=== PATIENT | female | born 1950 | race Hispanic/Latino ===

== ENCOUNTER 2018-12-11 10:24 | Observation (INO) | payer OTHER ==
[2018-12-11] MEDS ORDERED: ASPIRIN 81 MG CHEWABLE TABLET ONE (10:54)
[2018-12-11 11:00] LABS: Absolute Lymphocytes (CBC) 1.9 K/uL (0.7-4.9); Absolute Monocytes 0.7 K/uL (0.1-1.3); Absolute Neutrophil 2.4 K/uL (1.8-8.0); Basophils % 0.7 % (0-1.3); Eosinophils % 3.8 % (0-4.4); Hematocrit 33.3 % (36.0-45.0); Lymphocytes % 35.8 % (15.3-44.8); MPV 8.8 fL (7.6-11.3); Monocytes % 12.7 % (3.3-12.3); RBC Red Blood Cell Count 3.71 M/uL (3.86-4.86)
[2018-12-11 11:07] LABS: Protime INR 1.07
[2018-12-11 11:20] LABS: Albumin 3.7 g/dL (3.4-5.0); Bilirubin Direct 0.1 mg/dL (0-0.2); Bilirubin Total 0.6 mg/dL (0.2-1.0); Magnesium 1.8 mg/dL (1.8-2.4); Potassium 4.4 mmol/L (3.5-5.1); Protein, Total 7.6 g/dL (6.4-8.2); Troponin (Emerg Dept Use Only) 0.06 ng/mL (0.0-0.045)
[2018-12-11] MEDS ORDERED: BENZONATATE 100 MG CAP PO ONE (12:13)
--- NOTE | 2018-12-11 12:22 | RAD REPORT ---
EXAM DESCRIPTION: RAD - Chest Pa And Lat (2 Views) - 12/11/2018 12:12 pm CLINICAL HISTORY: COUGH Chest pain. COMPARISON: Chest Single View dated 12/15/2016 FINDINGS: The lungs are clear. The heart is normal in size. No displaced fractures. IMPRESSION: No acute or concerning finding suspected.
--- NOTE | 2018-12-11 12:28 | EDPHYS ---
Physician Documentation [facility] Name: Nathalia Brady Age: 68 yrs Sex: Female : 1950 Arrival Date: 12/11/2018 Time: 10:26 Bed 18 Private MD: John Oviedo E ED Physician Connor Tracy HPI: 12/11 10:45 This 68 yrs old Female presents to ER via Ambulatory with complaints of Flu cp Symptoms. 10:45 The patient or guardian reports cough, that is intermittent, with productive sputum. cp 10:45 Onset: The symptoms/episode began/occurred this week. Associated signs and symptoms: cp Pertinent positives: sore throat, body aches. Patient also c/o intermittent left lateral neck pain that radiates to left arm. Pain started yesterday and is improved today. Patient denies chest pain. Historical: - Allergies: 10:45 Morphine; iw - Home Meds: 10:45 metformin 500 mg Oral Tb24 1 tab 2 times per day [Active]; Plavix 75 mg Oral tab 1 tab iw once daily [Active]; atorvastatin 80 mg Oral tab 1 tab once daily [Active]; metoprolol tartrate 25 mg Oral tab 1 tab 2 times per day [Active]; pantoprazole 40 mg oral TbEC 1 tab once daily [Active]; - PMHx: 10:45 Hyperlipidemia; Diabetes - NIDDM; Hypertension; iw - PSHx: 10:45 cardiac stent; iw - Immunization history:: Adult Immunizations up to date. - Social history:: Smoking status: Patient/guardian denies using tobacco. - Ebola Screening: : Patient negative for fever greater than or equal to 101.5 degrees Fahrenheit, and additional compatible Ebola Virus Disease symptoms Patient denies exposure to infectious person Patient denies travel to an Ebola-affected area in the 21 days before illness onset No symptoms or risks identified at this time. ROS: 11:00 Constitutional: Positive for body aches, Negative for fever, poor PO intake. cp 11:00 Eyes: Negative for injury, pain, redness, and discharge. cp 11:00 ENT: Positive for rhinorrhea, sore throat, Negative for drainage from ear(s), ear pain, difficulty swallowing, difficulty handling secretions. 11:00 Neck: Positive for pain at rest, of the left lateral neck, Negative for stiffness. 11:00 Cardiovascular: Negative for chest pain, edema, palpitations. 11:00 Respiratory: Positive for cough, "sounds productive", Negative for shortness of breath, wheezing. 11:00 : Negative for urinary symptoms. 11:00 MS/extremity: Positive for pain, of the left arm, Negative for injury or acute deformity, decreased range of motion, paresthesias. 11:00 Skin: Negative for rash. 11:00 Neuro: Negative for altered mental status, headache, weakness. 11:00 All other systems are negative. Exam: 11:05 Constitutional: The patient appears in no acute distress, alert, awake, cp non-diaphoretic, non-toxic, well developed, well nourished. 11:05 Head/Face: Normocephalic, atraumatic. cp 11:05 Eyes: Periorbital structures: appear normal, Conjunctiva: normal, no exudate, no injection, Sclera: no appreciated abnormality, Lids and lashes: appear normal, bilaterally. 11:05 ENT: External ear(s): are unremarkable, Ear canal(s): are normal, clear, TM's: bulging, is not appreciated, bilaterally, dullness, bilaterally, erythema, is not appreciated, bilaterally, Nose: is normal, Mouth: Lips: moist, Oral mucosa: moist, Posterior pharynx: Airway: no evidence of obstruction, patent, Tonsils: no enlargement, no exudate, erythema, that is mild, exudate, is not appreciated. 11:05 Neck: ROM/movement: is normal, is supple, no range of motions limitations, no meningismus, no nuchal rigidity. 11:05 Chest/axilla: Inspection: normal, Palpation: is normal, no crepitus, no tenderness. 11:05 Cardiovascular: Rate: normal, Rhythm: regular, Edema: is not appreciated, JVD: is not appreciated. 11:05 Respiratory: the patient does not display signs of respiratory distress, Respirations: normal, no use of accessory muscles, no retractions, no splinting, no tachypnea, labored breathing, is not present, Breath sounds: rales, are not appreciated, decreased breath sounds, are not appreciated, rhonchi, are not appreciated, + upper airway congestion. wheezing: is not appreciated. 11:05 Abdomen/GI: Inspection: abdomen appears normal, Bowel sounds: active, all quadrants, Palpation: abdomen is soft and non-tender, in all quadrants. 11:05 Back: pain, is absent, ROM is normal. 11:05 Skin: cellulitis, is not appreciated, no rash present. 11:05 Neuro: Orientation: to person, place \\T\\ time. Mentation: is normal, Cerebellar function: is grossly normal, Motor: moves all fours, strength is normal, Sensation: is normal. 11:15 ECG was reviewed by the Attending Physician. cp Vital Signs: 10:45 BP 169 / 65; Pulse 61; Resp 16 S; Temp 97.5(TE); Pulse Ox 100% on R/A; Weight 86.18 kg; iw Height 5 ft. 3 in. (160.02 cm); Pain 6/10; 12:05 BP 162 / 64; Pulse 55; Resp 18; Pulse Ox 99% on R/A; Pain 0/10; em 13:00 BP 161 / 75; Pulse 59; Resp 18; Pulse Ox 99% on R/A; em 10:45 Body Mass Index 33.66 (86.18 kg, 160.02 cm) iw MDM: 10:31 Patient medically screened. cp 11:00 Differential diagnosis: URI, bronchitis, pneumonia angina, acute PR. cp 12:24 Data reviewed: vital signs, nurses notes, lab test result(s), EKG, radiologic studies, cp plain films. Counseling: I had a detailed discussion with the patient and/or guardian regarding: the historical points, exam findings, and any diagnostic results supporting the discharge/admit diagnosis, the presence of at least one elevated blood pressure reading (>120/80) during this emergency department visit, lab results, radiology results, the need for further work-up and treatment in the hospital. Response to treatment: the patient's symptoms have markedly improved after treatment. Physician consultation: Natty Coburn MD was called at 12:20, was contacted at 12:20, regarding admission, to the telemetry unit. patient's condition. 12/11 10:38 Order name: Basic Metabolic Panel; Complete Time: 11:37 cp 12/11 11:37 Interpretation: Normal except: CL 108; GLUC 180; GFR 66. cp 12/11 10:38 Order name: CBC with Diff; Complete Time: 11:37 cp 12/11 11:37 Interpretation: Normal except: RBC 3.71; HGB 11.5; HCT 33.3; MN% 12.7. cp 12/11 10:38 Order name: LFT's; Complete Time: 11:37 cp 12/11 10:38 Order name: Magnesium; Complete Time: 11:37 cp 12/11 10:38 Order name: NT PRO-BNP; Complete Time: 11:37 cp 12/11 10:38 Order name: PT-INR; Complete Time: 11:37 cp 12/11 10:38 Order name: Troponin (emerg Dept Use Only); Complete Time: 11:37 cp 12/11 11:38 Interpretation: Abnormal: TROPED 0.06. cp 12/11 10:38 Order name: Influenza Screen (a \\T\\ B); Complete Time: 11:37 cp 12/11 10:39 Order name: Strep; Complete Time: 11:37 cp 12/11 11:27 Order name: Throat Culture EDFL 12/11 12:48 Order name: Troponin I EDFL 12/11 12:48 Order name: Troponin I EDFL 12/11 12:49 Order name: Troponin I EDFL 12/11 12:49 Order name: Troponin I EDFL 12/11 10:38 Order name: EKG; Complete Time: 10:39 cp 12/11 10:38 Order name: Cardiac monitoring; Complete Time: 10:57 cp 12/11 10:38 Order name: EKG - Nurse/Tech; Complete Time: 12:04 cp 12/11 10:38 Order name: IV Saline Lock; Complete Time: 10:57 cp 12/11 10:38 Order name: Labs collected and sent; Complete Time: 10:57 cp 12/11 10:38 Order name: O2 Per Protocol; Complete Time: 10:58 cp 12/11 10:38 Order name: O2 Sat Monitoring; Complete Time: 10:57 cp 12/11 10:38 Order name: XRAY Chest Pa And Lat (2 Views); Complete Time: 12:23 cp 12/11 12:24 Interpretation: Report reviewed. cp 12/11 12:34 Order name: Diet Heart Healthy; Complete Time: 12:34 em 12/11 12:35 Order name: Heart Healthy EDFL 12/11 12:48 Order name: CONS Physician Consult EDFL 12/11 12:48 Order name: Echo with Doppler EDFL EC:15 Rate is 54 beats/min. Rhythm is regular. CA interval is normal. QRS interval is normal. cp QT interval is normal. Interpreted by me. Reviewed by me. Administered Medications: 10:53 Drug: Aspirin Chewable Tablet 324 mg Route: PO; em 12:03 Follow up: Response: No adverse reaction em 12:03 Drug: Tessalon Perle 200 mg Route: PO; em 13:00 Follow up: Response: No adverse reaction em Disposition: 14:20 Co-signature as Attending Physician, Connor Tracy MD. rn Disposition: 12/11/18 12:27 Hospitalization ordered by Natty Coburn for Observation. Preliminary diagnosis are Hypertensive heart disease, Elevated troponin, Acute upper respiratory infection, unspecified. - Bed requested for Telemetry/MedSurg (observation). - Status is Observation. em - Condition is Stable. - Problem is new. - Symptoms have improved. UTI on Admission? No Signatures: Dispatcher [facility] Cathi Frazier RN RN mw Munoz, Edgar, SAND MIXER OPERATOR SAND MIXER OPERATOR em Noris Moralez RN RN iw Nieto, Roman, MD MD rn Page, Corey, ANASTASIIA PA Ankita Carrera Corrections: (The following items were deleted from the chart) 12:34 12:27 Hospitalization Ordered by Natty Coburn MD for Observation. Preliminary eb diagnosis is Hypertensive heart disease; Elevated troponin; Acute upper respiratory infection, unspecified. Bed requested for Telemetry/MedSurg (observation). Status is Observation. Condition is Stable. Problem is new. Symptoms have improved. UTI on Admission? No. cp 13:00 12:34 12/11/2018 12:27 Hospitalization Ordered by Natty Coburn MD for Observation. eb Preliminary diagnosis is Hypertensive heart disease; Elevated troponin; Acute upper respiratory infection, unspecified. Bed requested for Telemetry/MedSurg (observation). Status is Observation. Condition is Stable. Problem is new. Symptoms have improved. UTI on Admission? No. eb 13:09 13:00 12/11/2018 12:27 Hospitalization Ordered by Natty Coburn MD for Observation. mw Preliminary diagnosis is Hypertensive heart disease; Elevated troponin; Acute upper respiratory infection, unspecified. Bed requested for Telemetry/MedSurg (observation). Status is Observation. Condition is Stable. Problem is new. Symptoms have improved. UTI on Admission? No. eb 14:04 13:09 12/11/2018 12:27 Hospitalization Ordered by Natty Coburn MD for Observation. em Preliminary diagnosis is Hypertensive heart disease; Elevated troponin; Acute upper respiratory infection, unspecified. Bed requested for Telemetry/MedSurg (observation). Status is Observation. Condition is Stable. Problem is new. Symptoms have improved. UTI on Admission? No. mw
--- NOTE | 2018-12-11 12:28 | ER ---
Nurse's Notes [facility] Name: Nathalia Brady Age: 68 yrs Sex: Female : 1950 Arrival Date: 12/11/2018 Time: 10:26 Bed 18 Private MD: John Oviedo E Diagnosis: Hypertensive heart disease;Elevated troponin;Acute upper respiratory infection, unspecified Presentation: 12/11 10:41 Presenting complaint: Patient states: has been feeling bad all week, c/o body aches, iw productive cough, sneezing, eye irritation, pain to left side of neck that makes her left arm go numb intermittently, denies fever. Transition of care: patient was not received from another setting of care. Onset of symptoms was December 06, 2018. Risk Assessment: Do you want to hurt yourself or someone else? Patient reports no desire to harm self or others. Initial Sepsis Screen: Does the patient meet any 2 criteria? No. Patient's initial sepsis screen is negative. Does the patient have a suspected source of infection? No. Patient's initial sepsis screen is negative. Care prior to arrival: None. 10:41 Method Of Arrival: Ambulatory iw 10:41 Acuity: CALI 3 iw Historical: - Allergies: 10:45 Morphine; iw - Home Meds: 10:45 metformin 500 mg Oral Tb24 1 tab 2 times per day [Active]; Plavix 75 mg Oral tab 1 tab iw once daily [Active]; atorvastatin 80 mg Oral tab 1 tab once daily [Active]; metoprolol tartrate 25 mg Oral tab 1 tab 2 times per day [Active]; pantoprazole 40 mg oral TbEC 1 tab once daily [Active]; - PMHx: 10:45 Hyperlipidemia; Diabetes - NIDDM; Hypertension; iw - PSHx: 10:45 cardiac stent; iw - Immunization history:: Adult Immunizations up to date. - Social history:: Smoking status: Patient/guardian denies using tobacco. - Ebola Screening: : Patient negative for fever greater than or equal to 101.5 degrees Fahrenheit, and additional compatible Ebola Virus Disease symptoms Patient denies exposure to infectious person Patient denies travel to an Ebola-affected area in the 21 days before illness onset No symptoms or risks identified at this time. Screenin:00 Abuse screen: Denies threats or abuse. Nutritional screening: No deficits noted. em Tuberculosis screening: No symptoms or risk factors identified. Fall Risk None identified. Assessment: 11:00 General: Appears in no apparent distress. comfortable, Behavior is calm, cooperative, em Denies fever. Pain: Complains of pain in left sternocleidomastoid Pain radiates to left arm Pain currently is 6 out of 10 on a pain scale. Pain began 1 week. Neuro: Level of Consciousness is awake, alert, obeys commands, Oriented to person, place, time, situation, Moves all extremities. Speech is normal, Facial symmetry appears normal. Cardiovascular: Denies nausea, shortness of breath, Heart tones S1 S2 present Capillary refill < 3 seconds Patient's skin is warm and dry. Rhythm is sinus rhythm. Respiratory: Reports cough that is non-productive, pain with cough Airway is patent Respiratory effort is even, unlabored, Respiratory pattern is regular, symmetrical, Breath sounds are clear bilaterally. Denies. GI: Abdomen is flat. : No signs and/or symptoms were reported regarding the genitourinary system. EENT: Nares are clear Oral mucosa is moist. Throat is clear is pink. Derm: Skin is intact, is healthy with good turgor, Skin is pink, warm \T\ dry. Musculoskeletal: Range of motion: intact in all extremities. 12:00 Reassessment: Patient appears in no apparent distress at this time. Patient and/or em family updated on plan of care and expected duration. Pain level reassessed. Patient is alert, oriented x 3, equal unlabored respirations, skin warm/dry/pink. Patient states feeling better. Patient states symptoms have improved. 13:00 Reassessment: Patient appears in no apparent distress at this time. Patient and/or em family updated on plan of care and expected duration. Pain level reassessed. Patient is alert, oriented x 3, equal unlabored respirations, skin warm/dry/pink. pending room assignemt. Vital Signs: 10:45 BP 169 / 65; Pulse 61; Resp 16 S; Temp 97.5(TE); Pulse Ox 100% on R/A; Weight 86.18 kg; iw Height 5 ft. 3 in. (160.02 cm); Pain 6/10; 12:05 BP 162 / 64; Pulse 55; Resp 18; Pulse Ox 99% on R/A; Pain 0/10; em 13:00 BP 161 / 75; Pulse 59; Resp 18; Pulse Ox 99% on R/A; em 10:45 Body Mass Index 33.66 (86.18 kg, 160.02 cm) ED Course: 10:26 Patient arrived in ED. rg4 10:27 John Oviedo MD is Private Physician. rg4 10:31 Gavin Oreilly PA is PHCP. cp 10:31 Connor Tracy MD is Attending Physician. cp 10:39 Guanako De La Garza LVN is Primary Nurse. em 10:43 Triage completed. iw 10:45 Arm band placed on. iw 10:50 Inserted saline lock: 22 gauge in right antecubital area, using aseptic technique. tw2 Blood collected. 11:00 Patient has correct armband on for positive identification. Fall risk band placed. em Placed in gown. Bed in low position. Call light in reach. Side rails up X2. Adult w/ patient. pvc monitor on. Pulse ox on. NIBP on. 11:56 EKG done, by ED staff, reviewed by Gavin LAURENT. [facility] 12:12 XRAY Chest Pa And Lat (2 Views) In Process Unspecified. EDMS 12:25 Natty Coburn MD is Hospitalizing Provider. cp 14:01 No provider procedures requiring assistance completed. Patient admitted, IV remains in em place. Administered Medications: 10:53 Drug: Aspirin Chewable Tablet 324 mg Route: PO; em 12:03 Follow up: Response: No adverse reaction em 12:03 Drug: Tessalon Perle 200 mg Route: PO; em 13:00 Follow up: Response: No adverse reaction em Outcome: 12:27 Decision to Hospitalize by Provider. cp 14:01 Admitted to Tele accompanied by nurse, via wheelchair, room 207, with oxygen, with em chart, Report called to CLAUDETTE Zhu 14:01 Condition: good 14:01 Instructed on the need for admit, Demonstrated understanding of instructions. 14:04 Patient left the ED. em Signatures: Dispatcher [employer] EDMS Guanako De La Garza LVN LVN em Noris Moralez RN RN iw Page, Corey, PA PA Mena Ramachandran RN RN 2 Deepali Rodríguez 4 Randa Mcginnis [facility] Corrections: (The following items were deleted from the chart) 12:31 11:00 Pain: Complains of pain in left sternocleidomastoid Pain currently is 6 out of 10 em on a pain scale. Pain began 1 week em
[2018-12-11] MEDS ORDERED: D50W 25 GM/50 ML SYRINGE IV PRN (13:27)
[2018-12-11] MEDS ORDERED: GLUCAGON 1 MG/VIAL IM PRN (13:27)
[2018-12-11] MEDS ORDERED: ONDANSETRON 4 MG/2 ML VIAL IV PRN (13:34)
[2018-12-11 14:07] VITALS: BMI 32.3
[2018-12-11 14:39] LABS: Urine Appearance CLEAR; Urine Bilirubin NEGATIVE (NEG); Urine Blood NEGATIVE (NEG); Urine Color YELLOW; Urine Glucose 1+ (NEG); Urine Protein NEGATIVE (NEG); Urine Urobilinogen 0.2 mg/dL (0.2-1.0); Urine pH 5.5 (5.0-7.0)
[2018-12-11 14:45] LABS: Urine Microscopic Reflex NO UMIC
[2018-12-11] MEDS ORDERED: INFLUENZA VACCINE (for 3y+) 0.5 ML DOSE IMVAC ONE (16:00)
[2018-12-11] MEDS: INSULIN -REGULAR HUMAN 50 UNIT/0.5 ML ML SQ SCH ×2 (16:59→21:00)
--- NOTE | 2018-12-11 17:51 | P.HP ---
Certification for Inpatient Patient admitted to: Observation With expected LOS: <2 Midnights Patient will require the following post-hospital care: None Practitioner: I am a practitioner with admitting privileges, knowledge of patient current condition, hospital course, and medical plan of care. Services: Services provided to patient in accordance with Admission requirements found in Title 42 Section 412.3 of the Code of Federal Regulations Patient History Date of Service: 12/11/18 Primary Care Provider: Dr Oviedo Reason for admission: Chest palpatation History of Present Illness: This is a 68-year-old female with significant past medical history of hypertension, diabetes, CAD, who presented to the ED this morning after having chest palpitations last night. Patient stated that for over a week now she has been having some cough and congestion due to her allergies which did resolve over the weekend last week however got worse once she went outside and worked on her grasp. Patient stated that since then she has been having some cough and congestion last night she started having some chest palpitations. Patient stated that she was sleeping and started noticing her heart was beating really fast at that time which then resolved immediately after a min or 2. Patient denies having any shortness of breath, chest pain or any other associated symptoms at this time. In the ER patient had labwork imaging done an EKG done. EKG is consistent with some nonspecific changes and troponin was mildly prolonged and this patient was admitted to the hospital for observation for chest palpitations. Allergies morphine Allergy (Verified 12/11/18 15:18) Anaphylaxis Home Medications: Atorvastatin Calcium [Lipitor] 1 tab PO DAILY 12/16/16 Clopidogrel Bisulfate [Plavix] 1 tab PO DAILY 12/16/16 Metformin HCl [Metformin ER Osmotic] 2 tab PO BID 12/16/16 Metoprolol Tartrate [Lopressor*] 1 tab PO BID 12/16/16 Pantoprazole [Protonix Tab] 40 mg PO DAILY 12/11/18 - Past Medical/Surgical History Has patient received pneumonia vaccine in the past: Yes Diabetic: Yes -: DM -: HTN -: high cholesterol -: CECI -: heart stent - Family History Father -: Diabetes Mother -: Diabetes - Social History Smoking Status: Former smoker Counseled patient to stop smoking for: more than 10 minutes Smoking therapy provided: Yes Patient receptive to therapy: Yes Alcohol use: No CD- Drugs: No Caffeine use: Yes Place of Residence: Home Review of Systems 10-point ROS is otherwise unremarkable Physical Examination - Vital Signs Temperature: 97.5 F Blood Pressure: 161/75 Pulse: 59 Respirations: 18 - Physical Exam General: Alert, In no apparent distress HEENT: Atraumatic, PERRLA, Mucous membr. moist/pink, EOMI, Sclerae nonicteric Neck: Supple, 2+ carotid pulse no bruit, No LAD, Without JVD or thyroid abnormality Respiratory: Clear to auscultation bilaterally, Normal air movement Cardiovascular: Regular rate/rhythm, Normal S1 S2 Gastrointestinal: Normal bowel sounds, No tenderness Musculoskeletal: No tenderness Integumentary: No rashes Neurological: Normal gait, Normal speech, Normal strength at 5/5 x4 extr, Normal tone, Normal affect Lymphatics: No axilla or inguinal lymphadenopathy - Studies Laboratory Data (last 24 hrs) 12/11/18 10:52: PT 12.6 H, INR 1.07 12/11/18 10:52: WBC 5.2, Hgb 11.5 L, Hct 33.3 L, Plt Count 255 12/11/18 10:52: Sodium 140, Potassium 4.4, BUN 15, Creatinine 0.86, Glucose 180 H, Magnesium 1.8, Total Bilirubin 0.6, AST 14 L, ALT 17, Alkaline Phosphatase 92 Microbiology Data (last 24 hrs): 12/11/18 10:50 Nasopharnyx Influenza Type A Antigen Screen - Final 12/11/18 10:50 Nasopharnyx Influenza Type B Antigen Screen - Final 12/11/18 10:50 Throat Group A Streptococcus Rapid Screen - Final Assessment and Plan - Problems (Diagnosis) (1) Heart palpitations Current Visit: Yes Status: Acute Plan: Heart palpitations most likely secondary to viral illness -go ahead and monitor patient on cardiac tele here for next 24 hr -cardiology has been consulted. Awaiting recommendations -will get echocardiogram done as well -will repeat troponin times 2 (2) Coronary artery disease Current Visit: No Status: Chronic Plan: Stable at this time -will restart home medication Qualifiers: Coronary Disease-Associated Artery/Lesion type: [place] artery [place] vs. transplanted heart: [place] heart Associated angina: without angina Qualified Code(s): I25.10 - Atherosclerotic heart disease of [place] coronary artery without angina pectoris (3) Hypertension Current Visit: No Status: Chronic Plan: Blood pressure stable at this time will restart home medication Qualifiers: Hypertension type: essential hypertension (4) Type 2 diabetes mellitus Current Visit: No Status: Chronic Plan: Insulin sliding scale and Accu-Chek Qualifiers: Diabetes mellitus vermin exterminator insulin use: without assisted use Diabetes mellitus complication status: without complication Qualified Code(s): E11.9 - Type 2 diabetes mellitus without complications - Plan Admit patient to medical-surgical unit to monitor for chest palpitations and cardiology consult. Discharge Plan: Home Plan to discharge in: 48 Hours - Advance Directives Does patient have a Living Will: No Does patient have a Durable POA for Healthcare: No - Code Status/Comfort Care Code Status Assessed: Yes Critical Care: No
[2018-12-11] MEDS ORDERED: ENOXAPARIN 40 MG/0.4 ML SQ SCH (18:00)
[2018-12-11] MEDS ORDERED: ATORVASTATIN 40 MG TAB PO SCH (21:00)
[2018-12-11] MEDS: METOPROLOL XL 25 MG TAB PO SCH (21:45)
[2018-12-12 05:57] LABS: Absolute Lymphocytes (CBC) 2.1 K/uL (0.7-4.9); Absolute Monocytes 0.6 K/uL (0.1-1.3); Absolute Neutrophil 2.5 K/uL (1.8-8.0); Basophils % 0.7 % (0-1.3); Eosinophils % 4.2 % (0-4.4); Hematocrit 30.7 % (36.0-45.0); Lymphocytes % 38.8 % (15.3-44.8); Monocytes % 10.3 % (3.3-12.3); RBC Red Blood Cell Count 3.44 M/uL (3.86-4.86)
[2018-12-12] MEDS ORDERED: METOPROLOL XL 25 MG TAB PO SCH (06:00)
[2018-12-12 06:04] LABS: ALT/SGPT 18 U/L (12-78); AST/SGOT 12 U/L (15-37); Albumin 3.5 g/dL (3.4-5.0); Alkaline Phosphatase 83 U/L (45-117); BUN Blood Urea Nitrogen 18 mg/dL (7-18); Bicarbonate 24 mmol/L (21-32); Bilirubin Total 0.4 mg/dL (0.2-1.0); CKMB Creatine Kinase MB < 1.0 ng/mL (0.3-3.6); Glucose Level 158 mg/dL (74-106); HDL Cholesterol 34 mg/dL (40-60); LDL Cholesterol, Calculated 42 (<130); Magnesium 1.8 mg/dL (1.8-2.4); Potassium 4.2 mmol/L (3.5-5.1); Protein, Total 6.9 g/dL (6.4-8.2); Sodium Level 139 mmol/L (136-145); Troponin I 0.05 ng/mL (0.0-0.045)
[2018-12-12] MEDS: INSULIN -REGULAR HUMAN 50 UNIT/0.5 ML ML SQ SCH ×2 (07:30→11:38)
[2018-12-12] MEDS ORDERED: MAGNESIUM SULFATE 1 gm IVPB 1 GM/100 ML BAG IV ONE (08:00)
[2018-12-12] MEDS: METOPROLOL XL 25 MG TAB PO SCH (08:25)
[2018-12-12 08:34] VITALS: O2SAT 97
[2018-12-12] MEDS ORDERED: PANTOPRAZOLE 40MG TABLET PO SCH (09:00)
[2018-12-12] MEDS ORDERED: ATORVASTATIN 80 MG TAB PO SCH (09:00)
[2018-12-12] MEDS ORDERED: ASPIRIN EC 81 MG TAB PO SCH (09:00)
--- NOTE | 2018-12-12 11:02 | P.PN ---
Subjective Date of Service: 12/12/18 Primary Care Provider: Dr Oviedo Chief Complaint: Chest palpatation Patient seen and examined at bedside with RN. Chart reviewed. Case discussed with family member at bedside. Currently patient awaiting cardiology consultation. Currently complains of having chest pain which is 3/10 and radiating to her left side. Patient contacted her juice standardizer at [facility] who recommended that she should be transferred to [facility]. Family notified that this would be considered a patient requested transfer and they could have an accepting physician at [facility] startup transfer process at that time. Patient however this time opted to await cardiology consult here before making any decision Review of Systems 10-point ROS is otherwise unremarkable Physical Examination - Vital Signs Temperature: 96.6 F Blood Pressure: 133/58 Pulse: 60 Respirations: 16 Pulse Ox (%): 99 - Physical Exam General: Alert, In no apparent distress HEENT: Atraumatic, PERRLA, EOMI Neck: Supple, JVD not distended Respiratory: Clear to auscultation bilaterally, Normal air movement Cardiovascular: Regular rate/rhythm, Normal S1 S2 Gastrointestinal: Normal bowel sounds, No tenderness Musculoskeletal: No tenderness Integumentary: No rashes Neurological: Normal speech, Normal tone, Normal affect Lymphatics: No axilla or inguinal lymphadenopathy - Studies Laboratory Data (last 24 hrs) 12/11/18 10:52: PT 12.6 H, INR 1.07 12/11/18 10:52: WBC 5.2, Hgb 11.5 L, Hct 33.3 L, Plt Count 255 12/11/18 10:52: Sodium 140, Potassium 4.4, BUN 15, Creatinine 0.86, Glucose 180 H, Magnesium 1.8, Total Bilirubin 0.6, AST 14 L, ALT 17, Alkaline Phosphatase 92 Microbiology Data (last 24 hrs): 12/11/18 10:50 Nasopharnyx Influenza Type A Antigen Screen - Final 12/11/18 10:50 Nasopharnyx Influenza Type B Antigen Screen - Final 12/11/18 10:50 Throat Group A Streptococcus Rapid Screen - Final Medications List Reviewed: Yes Assessment And Plan - Current Problems (Diagnosis) (1) Heart palpitations Current Visit: Yes Status: Acute Plan: Heart palpitations most likely secondary to viral illness versus cardiac urology -patient now with chest pain. EKG with nonspecific T-wave changes. Troponin x2 slightly elevated -cardiology has been consulted. Awaiting recommendations -echocardiogram pending at this time (2) Coronary artery disease Current Visit: No Status: Chronic Plan: Stable at this time -aspirin, beta-richi, statin at this time Qualifiers: Coronary Disease-Associated Artery/Lesion type: [place]al[place] artery [place] vs. transplanted heart: nondalton heart Associated angina: without angina Qualified Code(s): I25.10 - Atherosclerotic heart disease of nondalton coronary artery without angina pectoris (3) Hypertension Current Visit: No Status: Chronic Plan: Blood pressure stable -started on home medication Qualifiers: Hypertension type: essential hypertension (4) Type 2 diabetes mellitus Current Visit: No Status: Chronic Plan: Insulin sliding scale and Accu-Chek Qualifiers: Diabetes mellitus skilled nursing insulin use: without skilled nursing use Diabetes mellitus complication status: without complication Qualified Code(s): E11.9 - Type 2 diabetes mellitus without complications - Plan Pending clinical improvement at this time. Awaiting cardiology consultation and echocardiogram. Discharge Plan: Home Plan to discharge in: Greater than 2 days - Code Status/Comfort Care Code Status Assessed: Yes Critical Care: No
--- NOTE | 2018-12-12 11:55 | P.SSS ---
Patient History Date of Service: 12/12/18 Primary Care Provider: Dr Oviedo Reason for admission: Chest palpatation History of Present Illness: This is a 68-year-old female with significant past medical history of hypertension, diabetes, CAD, who presented to the ED this morning after having chest palpitations last night. Patient stated that for over a week now she has been having some cough and congestion due to her allergies which did resolve over the weekend last week however got worse once she went outside and worked on her grasp. Patient stated that since then she has been having some cough and congestion last night she started having some chest palpitations. Patient stated that she was sleeping and started noticing her heart was beating really fast at that time which then resolved immediately after a min or 2. Patient denies having any shortness of breath, chest pain or any other associated symptoms at this time. In the ER patient had labwork imaging done an EKG done. EKG is consistent with some nonspecific changes and troponin was mildly prolonged and this patient was admitted to the hospital for observation for chest palpitations. Allergies morphine Allergy (Verified 12/11/18 15:18) Anaphylaxis Home Medications: Atorvastatin Calcium [Lipitor] 1 tab PO DAILY 12/16/16 Clopidogrel Bisulfate [Plavix] 1 tab PO DAILY 12/16/16 Metformin HCl [Metformin ER Osmotic] 2 tab PO BID 12/16/16 Metoprolol Tartrate [Lopressor*] 1 tab PO BID 12/16/16 Pantoprazole [Protonix Tab*] 40 mg PO DAILY 12/11/18 - Past Medical/Surgical History Has patient received pneumonia vaccine in the past: Yes Diabetic: Yes -: DM -: HTN -: high cholesterol -: CECI -: heart stent - Family History Father -: Diabetes Mother -: Diabetes - Social History Smoking Status: Former smoker Alcohol use: No CD- Drugs: No Caffeine use: Yes Place of Residence: Home Review of Systems 10-point ROS is otherwise unremarkable Physical Examination - Vital Signs Temperature: 96.6 F Blood Pressure: 133/58 Pulse: 60 Respirations: 16 Pulse Ox (%): 99 - Physical Exam General: Alert, In no apparent distress HEENT: Atraumatic, PERRLA, Mucous membr. moist/pink, EOMI, Sclerae nonicteric Neck: Supple, 2+ carotid pulse no bruit, No LAD, Without JVD or thyroid abnormality Respiratory: Clear to auscultation bilaterally, Normal air movement Cardiovascular: Regular rate/rhythm, Normal S1 S2 Gastrointestinal: Normal bowel sounds, No tenderness Musculoskeletal: No tenderness Integumentary: No rashes Neurological: Normal gait, Normal speech, Normal strength at 5/5 x4 extr, Normal tone, Normal affect Lymphatics: No axilla or inguinal lymphadenopathy - Studies Microbiology Data (last 24 hrs): 12/11/18 10:50 Nasopharnyx Influenza Type A Antigen Screen - Final 12/11/18 10:50 Nasopharnyx Influenza Type B Antigen Screen - Final 12/11/18 10:50 Throat Group A Streptococcus Rapid Screen - Final - Diagnosis (Problem(s)) (1) Heart palpitations Current Visit: Yes Status: Resolved (2) Coronary artery disease Current Visit: No Status: Chronic Qualifiers: Coronary Disease-Associated Artery/Lesion type: [place] artery [place] vs. transplanted heart: [place] heart Associated angina: without angina Qualified Code(s): I25.10 - Atherosclerotic heart disease of [place] coronary artery without angina pectoris (3) Hypertension Current Visit: No Status: Chronic Qualifiers: Hypertension type: essential hypertension (4) Type 2 diabetes mellitus Current Visit: No Status: Chronic Qualifiers: Diabetes mellitus predatory animal exterminator insulin use: without predatory animal exterminator use Diabetes mellitus complication status: without complication Qualified Code(s): E11.9 - Type 2 diabetes mellitus without complications Treatment Summary: Overall during the hospital stay patient main stable Patient was initially admitted to the hospital for chest palpitation and viral illness. Cardiology was consulted here in the hospital. Patient was put on a tele monitor. Initial EKG was consistent with nonspecific changes. Troponin x2 were mildly elevated. Cardiology recommended that patient's troponins are most likely related to the viral illness and patient can follow up with her cardiology outpatient in about 1-2 days post discharge. No immediate intervention needs to be done here in the hospital. At that time patient was discharged home under stable condition once her symptoms had resolved. In the 24 hr monitoring patient did not have any other chest palpitation in her cardiac rhythms remained stable. Patient on the day of discharge was initially complaining of having some chest pain that was radiating to the left however it resolved once patient was able to mobilize without any intervention. Patient thus was discharged home under stable condition was asked to follow up with primary care provider along with wincher at [facility]. - Disposition Disposition: ROUTINE DISCHARGE Condition: GOOD Diet: Regular Activity: Ad yamileth
[2018-12-12 13:07] VITALS: BP 151/67; TEMP 97.4
--- NOTE | 2018-12-12 16:07 | CON ---
Chief Complaint: Allergies. History Of Present Illness: Mrs. Brady has a history of cardiac cath and stent, it was in 2016 o r 2017. It was done by a physician at [facility] in [place]. Now, she sees Dr. Garsia. Apparently a mon ago, a nuclear stress test was done and it was normal. She is not having chest pain. Troponins w ere drawn and they are 0.06. There are 4 drawn, all of them are 0.06. The first one was drawn on [facility] about 11 a.m. and the most recent one today at 4:38 a.m. and it was 0.05. The main complain t the patient has is nasal congestion and coughing. She denies having any chest pain. Physical Examination: General: She is alert, oriented, pleasant, not in distress. Lungs: Clear. Carotids no bruit. Heart: Normal. Abdomen: Soft. Extremities: Normal. Studies: An EKG shows sinus bradycardia, minimal voltage for LVH, otherwise it is normal. Impression: The troponins are not consistent with an acute coronary syndrome. Symptoms would not martinez pport it, EKG would not support it, and the lack of rise and fall and troponins and minimal elevation , all make the say this is a nonspecific release of troponins. I do not think she needs to undergo a ny further testing. I would be in favor of her being discharged soon. HUSAM/CIRO Voice ID: [id number] Report ID: [id number]
== END 2018-12-12 14:57 | disposition home or self-care (01) ==
LOC: ER 10:24 → ERHOLD 12:47 → INTOOBSV 12:47 → 2ND 13:30
PROVIDERS: ADMIT Family Medicine; ATTEND Family Medicine
DX: R00.2 Palpitations (principal); B34.9 Viral infection, unspecified; I25.10 Atherosclerotic heart disease of native coronary artery without angina pectoris; I10 Essential (primary) hypertension; E11.9 Type 2 diabetes mellitus without complications; Z95.5 Presence of coronary angioplasty implant and graft; Z87.891 Personal history of nicotine dependence; Z23 Encounter for immunization
CPT/HCPCS: 87070; 85025 ×2; 80048; 36415; 83735 ×2; 85610; 80061; 82962 ×4; 80076; 87081; 81003; 84484 ×4; 82553 ×3; 80053; 83880; 87804 ×2; 71046; 94760 ×3; 99285; Q2035; J1650; J3475; G0008; G0378 ×2

== ENCOUNTER 2018-12-20 16:09 | Emergency (ER) | payer OTHER ==
--- OUTSIDE RECORDS SUMMARY | 2018-12-20 16:16 | XMS REPORT ---
:1950 [facility] Address [address] [place] [address] Dr. Mckeon [address] [place] [id number] Care Team Providers Name Role Phone Unavailable Unavailable Unavailable Problems This patient has no known problems. Allergies, Adverse Reactions, Alerts This patient has no known allergies or adverse reactions. Medications This patient has no known medications.
--- NOTE | 2018-12-20 16:53 | EDPHYS ---
Physician Documentation [facility] Name: Nathalia Brady Age: 68 yrs Sex: Female : 1950 Arrival Date: 12/20/2018 Time: 16:12 Bed 5 Private MD: ED Physician Gavin Cruz HPI: 12/20 16:37 This 68 yrs old Female presents to ER via Ambulatory with complaints of Sinus kb Congestion, ear pressure. 16:38 The patient or guardian reports sinus pressure, congestion, ear pressure, runny nose, kb watery eyes. Onset: The symptoms/episode began/occurred 2 week(s) ago. Severity of symptoms: At their worst the symptoms were moderate, in the emergency department the symptoms are unchanged. Modifying factors: The symptoms are alleviated by nothing, the symptoms are aggravated by nothing. Associated signs and symptoms: Pertinent positives: earache, rhinorrhea, Pertinent negatives: chest pain, diarrhea, fever, nausea, sore throat, vomiting. The patient has not experienced similar symptoms in the past. The patient has been recently seen by a physician: the patient's primary care provider, The patient has been recently seen at the [facility] Emergency Department. Pt reports she has had sinus pressure, congestion, ear pressure, headache, runny nose and watery eyes for over 2 weeks. Came here for it and was admitted for elevated troponin, but didn't get the reason she was here addressed at that time. Went to PCP on Thursday and was given flonase and steroids, but they haven't helped yet. States she wants something to help the symptoms. Has not tried any OTC medications. Historical: - Allergies: 16:19 Morphine; ss - Home Meds: 16:19 amlodipine 10 mg tab 1 tab once daily [Active]; atorvastatin 80 mg Oral tab 1 tab once ss daily [Active]; metformin 500 mg Oral Tb24 1 tab 2 times per day [Active]; metoprolol tartrate 25 mg Oral tab 1 tab 2 times per day [Active]; metoprolol tartrate 25 mg Oral tab 1 tab 2 times per day [Active]; pantoprazole 40 mg Oral TbEC 1 tab once daily [Active]; Plavix 75 mg Oral tab 1 tab once daily [Active]; - PMHx: 16:19 Diabetes - IDDM; Diabetes - NIDDM; Hyperlipidemia; Hypertension; Myocardial infarction; ss - PSHx: 16:19 cardiac stent; Cholecystectomy; Tonsillectomy; ss - Immunization history:: Adult Immunizations up to date. - Social history:: Smoking status: Patient/guardian denies using tobacco. - Ebola Screening: : Patient denies exposure to infectious person Patient denies travel to an Ebola-affected area in the 21 days before illness onset. ROS: 16:35 Constitutional: Negative for fever, chills, and weight loss, Neck: Negative for injury, kb pain, and swelling, Cardiovascular: Negative for chest pain, palpitations, and edema, Respiratory: Negative for shortness of breath, cough, wheezing, and pleuritic chest pain, Abdomen/GI: Negative for abdominal pain, nausea, vomiting, diarrhea, and constipation, : Negative for injury, bleeding, discharge, and swelling, MS/Extremity: Negative for injury and deformity, Skin: Negative for injury, rash, and discoloration, Neuro: Negative for headache, weakness, numbness, tingling, and seizure. 16:35 ENT: Positive for ear pain, rhinorrhea, sinus congestion. Exam: 16:35 Constitutional: This is a well developed, well nourished patient who is awake, alert, kb and in no acute distress. Head/Face: Normocephalic, atraumatic. Neck: Trachea midline, no thyromegaly or masses palpated, and no cervical lymphadenopathy. Supple, full range of motion without nuchal rigidity, or vertebral point tenderness. No Meningismus. Chest/axilla: Normal chest wall appearance and motion. Nontender with no deformity. No lesions are appreciated. Cardiovascular: Regular rate and rhythm with a normal S1 and S2. No gallops, murmurs, or rubs. Normal PMI, no JVD. No pulse deficits. Respiratory: Lungs have equal breath sounds bilaterally, clear to auscultation and percussion. No rales, rhonchi or wheezes noted. No increased work of breathing, no retractions or nasal flaring. Abdomen/GI: Soft, non-tender, with normal bowel sounds. No distension or tympany. No guarding or rebound. No evidence of tenderness throughout. Skin: Warm, dry with normal turgor. Normal color with no rashes, no lesions, and no evidence of cellulitis. MS/ Extremity: Pulses equal, no cyanosis. Neurovascular intact. Full, normal range of motion. Neuro: Awake and alert, GCS 15, oriented to person, place, time, and situation. Cranial nerves II-XII grossly intact. Motor strength 5/5 in all extremities. Sensory grossly intact. Cerebellar exam normal. Normal gait. 16:35 Head/face: Sinus tenderness, that is moderate, is located over the right frontal sinus, left frontal sinus, right maxillary sinus and left maxillary sinus. 16:35 ENT: External ear(s): are unremarkable, Ear canal(s): are normal, TM's: are normal, Nose: nasal drainage, that is moderate, and is seen coming from both nares, that is clear, Mouth: is normal, Posterior pharynx: is normal. Vital Signs: 16:19 BP 195 / 68; Pulse 84; Resp 18; Temp 98.8(O); Pulse Ox 100% on R/A; Weight 84.82 kg; ss Height 5 ft. 4 in. (162.56 cm); Pain 10/10; 16:19 Body Mass Index 32.10 (84.82 kg, 162.56 cm) ss MDM: 16:22 Patient medically screened. kb 16:35 Data reviewed: vital signs, nurses notes. Data interpreted: Pulse oximetry: on room air kb is 100 %. Interpretation: normal. 16:36 Data reviewed: old medical records, diagnostic results from previous visit reviewed. kb Flu, strep, throat culture all negative. Counseling: I had a detailed discussion with the patient and/or guardian regarding: the historical points, exam findings, and any diagnostic results supporting the discharge/admit diagnosis, the need for outpatient follow up, a family practitioner, to return to the emergency department if symptoms worsen or persist or if there are any questions or concerns that arise at home. 16:42 ED course: Pt educated that etiology of symptoms appear to be allergic. No findings to kb indicate bacterial infection. Educated that antibiotics are unlikely to help symptoms. Educated to continue previously prescribed medications and to start taking an antihistamine and mucinex daily for symptomatic treatment. Patient and family in agreement with plan of care. Educated to increase fluids. Pt to return for worsening symptoms, fever or any other concerns. . Administered Medications: 16:42 CANCELLED (Other Intervention Used): Decadron 10 mg IM once kb 16:59 Drug: SOLU-Medrol 125 mg Route: IM; Site: right gluteus; sv 17:33 Follow up: Response: No adverse reaction sv Disposition: 17:36 Co-signature as Attending Physician, Gavin Cruz MD I agree with the assessment and sherman plan of care. Disposition: 12/20/18 16:53 Discharged to Home. Impression: Acute sinusitis. - Condition is Stable. - Discharge Instructions: Sinusitis, Adult, [id number]. - Medication Reconciliation Form, Thank You Letter, Antibiotic Education, Prescription Opioid Use form. - Follow up: Emergency Department; When: As needed; Reason: Worsening of condition. Follow up: Private Physician; When: 2 - 3 days; Reason: Recheck today's complaints, Continuance of care, Re-evaluation by your physician. Signatures: Apolonia Florence FNP-C FNP-Crys Tee, RN Gavin Wynne MD MD cha Smirch, Shelby, RN RN ss Corrections: (The following items were deleted from the chart) 16:42 16:42 Decadron 10 mg IM once ordered. kb kb 17:34 16:53 12/20/2018 16:53 Discharged to Home. Impression: Acute sinusitis. Condition is sv Stable. Discharge Instructions: Sinusitis, Adult, Papz-pl-Laau. Forms are Medication Reconciliation Form, Thank You Letter, Antibiotic Education, Prescription Opioid Use. Follow up: Emergency Department; When: As needed; Reason: Worsening of condition. Follow up: Private Physician; When: 2 - 3 days; Reason: Recheck today's complaints, Continuance of care, Re-evaluation by your physician. kb
--- NOTE | 2018-12-20 16:53 | ER ---
Nurse's Notes [facility] Name: Nathalia Brady Age: 68 yrs Sex: Female : 1950 Arrival Date: 12/20/2018 Time: 16:12 Bed 5 Private MD: Diagnosis: Acute sinusitis Presentation: 12/20 16:17 Presenting complaint: Patient states: cough, headache, bilateral ear pressure, chills, ss runny nose and sinus congestion x 1.5 weeks. Pt reports she was seen in ER recently for similar complaints, and was admitted for something different, but these symptoms have gotten worse over the past three days. Transition of care: patient was not received from another setting of care. Onset of symptoms was December 09, 2018. Risk Assessment: Do you want to hurt yourself or someone else? Patient reports no desire to harm self or others. Initial Sepsis Screen: Does the patient meet any 2 criteria? No. Patient's initial sepsis screen is negative. Does the patient have a suspected source of infection? No. Patient's initial sepsis screen is negative. Care prior to arrival: None. 16:17 Method Of Arrival: Ambulatory ss 16:17 Acuity: CALI 3 ss Historical: - Allergies: 16:19 Morphine; ss - Home Meds: 16:19 amlodipine 10 mg tab 1 tab once daily [Active]; atorvastatin 80 mg Oral tab 1 tab once ss daily [Active]; metformin 500 mg Oral Tb24 1 tab 2 times per day [Active]; metoprolol tartrate 25 mg Oral tab 1 tab 2 times per day [Active]; metoprolol tartrate 25 mg Oral tab 1 tab 2 times per day [Active]; pantoprazole 40 mg Oral TbEC 1 tab once daily [Active]; Plavix 75 mg Oral tab 1 tab once daily [Active]; - PMHx: 16:19 Diabetes - IDDM; Diabetes - NIDDM; Hyperlipidemia; Hypertension; Myocardial infarction; ss - PSHx: 16:19 cardiac stent; Cholecystectomy; Tonsillectomy; ss - Immunization history:: Adult Immunizations up to date. - Social history:: Smoking status: Patient/guardian denies using tobacco. - Ebola Screening: : Patient denies exposure to infectious person Patient denies travel to an Ebola-affected area in the 21 days before illness onset. Screenin:23 Abuse screen: Denies threats or abuse. Denies injuries from another. Nutritional sv screening: No deficits noted. Tuberculosis screening: No symptoms or risk factors identified. Fall Risk None identified. Assessment: 17:00 General: Appears in no apparent distress. uncomfortable, well developed, Behavior is sv calm, cooperative, appropriate for age. Pain: Complains of pain in left maxillary sinus and right maxillary sinus and left frontal sinus and right frontal sinus Pain currently is 10 out of 10 on a pain scale. Quality of pain is described as pressure, Pain began 1.5 weeks ago. Neuro: Level of Consciousness is awake, alert, obeys commands, Oriented to person, place, time, situation, Moves all extremities. Full function. Respiratory: Airway is patent Respiratory effort is even, unlabored, Respiratory pattern is regular, symmetrical. EENT: Reports nasal congestion jj ear pressure. Derm: Skin is pink, warm \T\ dry. 17:01 Reassessment: Waiting IM shot time before discharge. sv 17:32 Reassessment: Patient appears in no apparent distress at this time. Patient and/or sv family updated on plan of care and expected duration. Pain level reassessed. Patient is alert, oriented x 3, equal unlabored respirations, skin warm/dry/pink. Vital Signs: 16:19 BP 195 / 68; Pulse 84; Resp 18; Temp 98.8(O); Pulse Ox 100% on R/A; Weight 84.82 kg; ss Height 5 ft. 4 in. (162.56 cm); Pain 10/10; 16:19 Body Mass Index 32.10 (84.82 kg, 162.56 cm) ED Course: 16:12 Patient arrived in ED. mr 16:18 Triage completed. ss 16:19 Arm band placed on right wrist. ss 16:21 Apolonia Florence FNP-C is PHCP. kb 16:21 Gavin Cruz MD is Attending Physician. kb 16:22 Crys Gregorio RN is Primary Nurse. sv 16:23 Patient has correct armband on for positive identification. Bed in low position. Call sv light in reach. Door closed. Head of bed elevated. 17:01 No provider procedures requiring assistance completed. Patient did not have IV access sv during this emergency room visit. Administered Medications: 16:42 CANCELLED (Other Intervention Used): Decadron 10 mg IM once kb 16:59 Drug: SOLU-Medrol 125 mg Route: IM; Site: right gluteus; sv 17:33 Follow up: Response: No adverse reaction sv Outcome: 16:53 Discharge ordered by . kb 17:32 Discharged to home ambulatory, with family. sv 17:32 Condition: stable 17:32 Discharge instructions given to patient, Instructed on discharge instructions, follow up and referral plans. Demonstrated understanding of instructions, follow-up care. 17:34 Patient left the ED. sv Signatures: Apolonia Florence, MIRIAM AMAYA-Crys Tee, RN RN sv Nathalia Shannon Shelby, RN RN ss
[2018-12-20] MEDS ORDERED: METHYLPREDNISOLONE 125 MG INJ ONE (17:07)
[2018-12-20 17:50] VITALS: BP 195/68; TEMP 98.8; O2SAT 100
== END 2018-12-20 17:34 | disposition home or self-care (01) ==
LOC: ER 16:09
DX: J01.90 Acute sinusitis, unspecified (principal); I10 Essential (primary) hypertension; E11.9 Type 2 diabetes mellitus without complications; E78.5 Hyperlipidemia, unspecified; I25.2 Old myocardial infarction; Z95.818 Presence of other cardiac implants and grafts; Z79.01 Long term (current) use of anticoagulants; Z88.5 Allergy status to narcotic agent
CPT/HCPCS: 96372; 99283; J2930

== ENCOUNTER 2022-10-01 20:48 | Observation (INO) | payer OTHER ==
--- OUTSIDE RECORDS SUMMARY | 2022-10-01 20:55 | XMS REPORT | Continuity of Care Document ---
:1950 Author Organization [facility] t Address [address] [place] [address] Care Team Providers Name Role Phone Ciera Olea MD Primary Care Physician CIERA OLEA Attending Clinician Unavailable ANKITA GREEN Attending Clinician Unavailable Ankita Green MD Attending Clinician [phone] John MARCUS, Bryce Polk Attending Clinician 2, [facility] Attending Clinician Unavailable Yan_W Attending Clinician Unavailable Doctor Unassigned, [place] Attending Clinician Unavailable BUD MATT K.HAlmas Attending Clinician Unavailable Ciera Maria RN Attending Clinician Unavailable Ambika Nava Attending Clinician Jayjay Barnes MD Attending Clinician Angle Paredes MD Attending Clinician Shaka MARCUS, Sendrichard K.H. Attending Clinician Gino Brady DO Attending Clinician Nurse, Adc Fam Attending Clinician Unavailable Pob, [facility] Lab Main Attending Clinician Unavailable Pc, Adc Echo Room 1 - Attending Clinician Unavailable Danielle Rodríguez RN Attending Clinician Unavailable Royal Walter MD Attending Clinician TIERA CRUZ Attending Clinician Unavailable SERGEY FAUST Attending Clinician Unavailable Sergey Faust MD Attending Clinician JAYJAY BARNES Attending Clinician Unavailable ANGLE PAREDES Attending Clinician Unavailable ANALI HARO Attending Clinician Unavailable ANKITA GREEN Admitting Clinician Unavailable Liliam Admitting Clinician Unavailable JAYJAY BARNES Admitting Clinician Unavailable ANGLE PAREDES Admitting Clinician Unavailable Payers Payer Name Policy Type Policy Number Effective Date Expiration Date S estiven [facility] [id number] 2019 DUAL COMPLETE HMO 00:00:00 [place]ID [place] [id number] 2020 00:00:00 [facility] MEDICARE [id number] 2018 COMPLETE CHOICE 00:00:00 [facility] - [id number] 2020 [facility] 00:00:00 (MEDICARE REPLACEMENT/ADVANTA GE - HMO) [facility] [id number] 2020 [place] - 00:[place]:00 DUAL ELIGIBLE (MEDICARE REPLACEMENT/ADVANTA GE - HMO) [facility] PLAN [id number] DH - DUAL (MEDICARE REPLACEMENT HMO) [facility] [id number] Problems Condition Condition Condition Status Onset Resolution Last Treating Co mments Source Name Details Category Date Date Treatment Clinician Date Peripheral Peripheral Disease Active 2021-09 U nivers neuropathy neuropathy 1-14 it y of due to due to 00:00: [place] metabolic metabolic 00 Medi marcos disorder disorder Branch Osteoporos Osteoporos Disease Active 2021-09 U nivers is, is, 0-27 ity of unspecifie [place]specif[place] 00 Medical osteoporos osteoporos Br anch is type, is type, unspecifie unspecifie d d pathologic pathologic al al fracture fracture presence presence Vision Vision Disease Active 2019-09 Overview: Univer s problems problems 0-19 Formattin ity of 00:00: g of this [place] 00 note Medical might be Branch different from the original. From diabetes Anemia of Anemia of Disease Active Uni vers chronic chronic 905 ity of disease disease 00:00: [place] 00 Medical Branch Low serum Low serum Disease Active Uni vers vitamin vitamin 9-05 ity of B12 B12 00:00: [place] 00 Medical Branch Low Low Disease Active Univers vitamin D vitamin D 05-19 ity of level level 00:00: [place] [facility] Hx of Hx of Disease Active Univers smoking smoking 05-17 ity of 00:00: [place] [facility] Requires Requires Problem Active [place] vaccinatio Vaccinatio 05-17 da n n 00:00: Medical 00 Group Patient Patient Problem Active [place] encounter Encounter 05-17 da status Status 00:00: Medical 00 Group NSTEMI NSTEMI Disease Active Univers (non-ST (non-ST 09-21 ity of elevated elevated 00:00: [place] myocardial myocardial 00 Me dical infarction infarction Br anch ) ) Chest pain Chest Pain Problem Active M [place] 09-20 da 00:00: Medical 00 Group Type 2 Type 2 Disease Active Overview: Univer s diabetes diabetes 2- Formattin ity of mellitus mellitus 00:00: g of this [place] as with with 00 note Medical retinopath retinopath might be Branch y y different from the original. 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 00:00: [place] vaginitis vaginitis 00 Medi marcos Branch Type 2 Type 2 Problem Active [place] diabetes Diabetes 2- da mellitus Mellitus 00:00: Medica l without without 00 Group complicati Complicati on on Obesity Obesity Problem Active [place] 2-01 da 00:00: Medical 00 Group Repeated Repeated Problem Active [place] prescripti Prescripti 2- da on on 00:00: Medical 00 Group Allergies, Adverse Reactions, Alerts Allergy Allergy Status Severity Reaction(s) Onset Inactive Treating Comm ents Source Name Type Date Date Clinician Statins- Propensi Active Itching With Unive rs Hmg-Coa ty to 507 atorvasta ity of [place] adverse 00:00: tin and [place] e reaction 00 pravastat Medic al Inhibito s in Branch rs Statins- Propensi Active Itching With Unive rs Hmg-Coa ty to 5-07 atorvasta ity of [place] adverse 00:00: tin and [place] e reaction 00 pravastat Medic al Inhibito s in Branch rs STATINS- Drug Active ITCHING Univers HMG-COA Class 5-07 ity of REDUCTAS 00:00: [place] E 00 Medical INHIBITO Branch RS Morphine Allergy Active [place] to 4-05 da substanc 00:00: Medical e 00 Group MORPHINE DRUG Active High N/V Univers INGREDI 4-05 ity of 00:00: [place] [facility] Morphine Drug Active Nausea Univers Allergy and/or 4-05 ity of Vomiting 00:00: [place] 00 [facility] Social History Social Habit Start Date Stop Date Quantity Comments Source Exposure to 2022-06-28 2022-07-08 Not sure [facility] SARS-CoV-2 00:00:00 13:07:00 [facility] (event) Branch Alcohol intake 2022-07-08 2022-07-08 Current University of 00:00:00 00:00:00 non-drinker of [facility] alcohol (finding) Branch Tobacco use and 2020-07-02 2020-07-02 Smokeless tobacco Un iversity of exposure 00:00:00 00:00:00 non-user [facility] History of 1978-09-14 Cigarette Smoker Universi ty of tobacco use 00:00:00 [facility] Sex [birth year] [place] [facility] 00:00:00 00:00:00 Smoking Status Start Date Stop Date Source Tobacco smoking [facility] consumption unknown Ex-smoker 2020-07-02 00:00:00 2020-07-02 [facility] 00:00:00 Medical Branch Medications Ordered Filled Start Stop Current Ordering Indication Dosage Frequency Signature Comments Components Source Medication Medication Date Date Medication? Clinician (SIG) Name Name cyanocobala Yes Place Unive rs min, 7-22 under the ity of vitamin 08:52: tongue. [facility], 06 Medical mcg Subl Branch iron/vitami Yes Take by Uni vers n B complex 7-22 mouth ity of (S.S.S. 08:52: every [place] TONIC ORAL) 06 other day. Me dical Branch cyanocobala Yes Place Unive rs min, 7-22 under the ity of vitamin 08:52: tongue. [facility], 06 Medical mcg Subl Branch iron/vitami Yes Take by Uni vers n B complex 7-22 mouth ity of (S.S.S. 08:52: every [place] TONIC ORAL) 06 other day. Me dical Branch cyanocobala Yes Place Unive rs min, 7- under the ity of vitamin 08:52: tongue. [facility], Medical mcg Subl Branch iron/vitami Yes Take by Uni vers n B complex 7-22 mouth ity of (S.S.S. 08:52: every [place] TONIC ORAL) 06 other day. Me dical Branch cyanocobala Yes Place Unive rs min, 7-22 under the ity of vitamin 08:52: tongue. [facility]-, Medical mcg Subl Branch iron/vitami Yes Take by Uni vers n B complex 7-22 mouth ity of (S.S.S. 08:52: every [place] TONIC ORAL) 06 other day. Me dical Branch cyanocobala Yes Place Unive rs min, 7-22 under the ity of vitamin 08:52: tongue. [facility], 06 Medical mcg Subl Branch iron/vitami Yes Take by Uni vers n B complex 7-22 mouth ity of (S.S.S. 08:52: every [place] TONIC ORAL) 06 other day. Me dical Branch cyanocobala 2021-[address] Unive rs min, 7-22 under the ity of vitamin 08:52: tongue. B-12, ,000 06 Medical mcg Subl Branch iron/vitami 2021-0 Yes Take by Uni vers n B complex 7-22 mouth ity of (S.S.S. 08:52: every [place] TONIC ORAL) 06 other day. Me dical Branch cyanocobala 2021-[address] Unive rs min, 7-22 under the ity of vitamin 08:52: tongue. B-12, ,000 06 Medical mcg Subl Branch iron/vitami 2021-0 Yes Take by Uni vers n B complex 7-22 mouth ity of (S.S.S. 08:52: every [place] TONIC ORAL) 06 other day. Me dical Branch cyanocobala 2021-[address] Unive rs min, 7-22 under the ity of vitamin 08:52: tongue. [place] B-12, ,000 06 Medical mcg Subl Branch iron/vitami 2021-0 Yes Take by Uni vers n B complex 7-22 mouth ity of (S.S.S. 08:52: every [place] TONIC ORAL) 06 other day. Me dical Branch cyanocobala 2021-[address] Unive rs min, 7-22 under the ity of vitamin 08:52: tongue. [place] B-12, ,000 06 Medical mcg Subl Branch iron/vitami 2021-0 Yes Take by Uni vers n B complex 7-22 mouth ity of (S.S.S. 08:52: every [place] TONIC ORAL) 06 other day. Me dical Branch cyanocobala 2021-[address] Unive rs min, 7-22 under the ity of vitamin 08:52: tongue. B-12, ,000 06 Medical mcg Subl Branch iron/vitami 2021-0 Yes Take by Uni vers n B complex 7-22 mouth ity of (S.S.S. 08:52: every [place] TONIC ORAL) 06 other day. Me dical Branch cyanocobala 2021-[address] Unive rs min, 7-22 under the ity of vitamin 08:52: tongue. B-12, ,000 06 Medical mcg Subl Branch iron/vitami 0 Yes Take by Uni vers n B complex 7-22 mouth ity of (S.S.S. 08:52: every [place] TONIC ORAL) 06 other day. Me dical Branch cyanocobala [address] Unive rs min, 7-22 under the ity of vitamin 08:52: tongue. [place] B-12, 5,000 06 Medical mcg Subl Branch iron/vitami 0 Yes Take by Uni vers n B complex 7-22 mouth ity of (S.S.S. 08:52: every [place] TONIC ORAL) 06 other day. Me dical Branch cyanocobala [address] Unive rs min, 7- under the ity of vitamin 08:52: tongue. [place] B-12, 5,000 Medical mcg Subl Branch iron/vitami 0 Yes Take by Uni vers n B complex 7-22 mouth ity of (S.S.S. 08:52: every [place] TONIC ORAL) 06 other day. Me dical Branch cyanocobala [address] Unive rs min, 7- under the ity of vitamin 08:52: tongue. [place] B-12, 5,000 06 Medical mcg Subl Branch iron/vitami 0 Yes Take by Uni vers n B complex 7-22 mouth ity of (S.S.S. 08:52: every [place] TONIC ORAL) 06 other day. Me dical Branch cyanocobala [address] Unive rs min, 7-22 under the ity of vitamin 08:52: tongue. [place] B-12, 5,000 06 Medical mcg Subl Branch iron/vitami 0 Yes Take by Uni vers n B complex 7-22 mouth ity of (S.S.S. 08:52: every [place] TONIC ORAL) 06 other day. Me dical Branch cyanocobala [address] Unive rs min, 7-22 under the ity of vitamin 08:52: tongue. [place] B-12, 5,000 06 Medical mcg Subl Branch iron/vitami 0 Yes Take by Uni vers n B complex 7-22 mouth ity of (S.S.S. 08:52: every [place] TONIC ORAL) 06 other day. Me dical Branch cyanocobala [address] Unive rs min, 7-22 under the ity of vitamin 08:52: tongue. [place] B-12, 5,000 06 Medical mcg Subl Branch iron/vitami 0 Yes Take by Uni vers n B complex 7-22 mouth ity of (S.S.S. 08:52: every [place] TONIC ORAL) 06 other day. Me dical Branch cyanocobala [address] Unive rs min, 7-22 under the ity of vitamin 08:52: tongue. [place] B-12, 5,000 06 Medical mcg Subl Branch iron/vitami 0 Yes Take by Uni vers n B complex 7-22 mouth ity of (S.S.S. 08:52: every [place] TONIC ORAL) 06 other day. Me dical Branch cyanocobala [address] Unive rs min, 7-22 under the ity of vitamin 08:52: tongue. B-12, ,000 06 Medical mcg Subl Branch iron/vitami 0 Yes Take by Uni vers n B complex 7-22 mouth ity of (S.S.S. 08:52: every [place] TONIC ORAL) 06 other day. Me dical Branch cyanocobala [address] Unive rs min, 7-22 under the ity of vitamin 08:52: tongue. [place] B-12, 5,000 06 Medical mcg Subl Branch iron/vitami 0 Yes Take by Un edvin n B complex 7-22 mouth ity of (S.S.S. 08:52: every [place] TONIC ORAL) 06 other day. Me dical Branch cyanocobala [address] Unive rs min, 7-22 under the ity of vitamin 08:52: tongue. B-12, 5,000 06 Medical mcg Subl Branch iron/vitami 2021-0 Yes Take by Uni vers n B complex 7-22 mouth ity of (S.S.S. 08:52: every [place] TONIC ORAL) 06 other day. Me dical Branch cyanocobala [address] Unive rs min, 7-22 under the ity of vitamin 08:52: tongue. B-12, 5,000 06 Medical mcg Subl Branch iron/vitami 2022-0 Yes Take by Uni vers n B complex 04-04 mouth ity of (S.S.S. 08:52: every [place] TONIC ORAL) 06 other day. Me dical Branch cyanocobala Yes Place Unive rs min, 04-04 under the ity of vitamin 08:52: tongue. [place] B-12, 5,000 06 Medical mcg Subl Branch iron/vitami Yes Take by Uni vers n B complex 04-04 mouth ity of (S.S.S. 08:52: every [place] TONIC ORAL) 06 other day. Me dical Branch ergocalcife Yes [id number] Take 1 Univers rol, 7-22 capsule by ity of vitamin d2, 00:00: mouth [place] (VITAMIN 00 weekly. Medical D2) 1,250 Branch mcg (50,000 unit) capsule ergocalcife 0 Yes [id number] Take 1 Univers rol, 7-22 capsule by ity of vitamin d2, 00:00: mouth [place] (VITAMIN 00 weekly. Medical D2) 1,250 Branch mcg (50,000 unit) capsule ergocalcife 0 Yes [id number] Take 1 Univers rol, 7-22 capsule by ity of vitamin d2, 00:00: mouth [place] (VITAMIN 00 weekly. Medical D2) 1,250 Branch mcg (50,000 unit) capsule ergocalcife 2021-0 Yes [id number] Take 1 Univers rol, 7-22 capsule by ity of vitamin d2, 00:00: mouth [place] (VITAMIN 00 weekly. Medical D2) 1,250 Branch mcg (50,000 unit) capsule ergocalcife 2021-0 Yes [id number] Take 1 Univers rol, 7-22 capsule by ity of vitamin d2, 00:00: mouth [place] (VITAMIN 00 weekly. Medical D2) 1,250 Branch mcg (50,000 unit) capsule ergocalcife 2021-0 Yes [id number] Take 1 Univers rol, 7-22 capsule by ity of vitamin d2, 00:00: mouth [place] (VITAMIN 00 weekly. Medical D2) 1,250 Branch mcg (50,000 unit) capsule ergocalcife 2021-0 Yes [id number] Take 1 Univers rol, 7-22 capsule by ity of vitamin d2, 00:00: mouth [place] (VITAMIN 00 weekly. Medical D2) 1,250 Branch mcg (50,000 unit) capsule ergocalcife 2022-0 Yes [id number] Take 1 Univers rol, 7-22 capsule by ity of vitamin d2, 00:00: mouth [place] (VITAMIN 00 weekly. Medical D2) 1,250 Branch mcg (50,000 unit) capsule ergocalcife 2022-0 Yes [id number] Take 1 Univers rol, 7-22 capsule by ity of vitamin d2, 00:00: mouth [place] (VITAMIN 00 weekly. Medical D2) 1,250 Branch mcg (50,000 unit) capsule ergocalcife 2022-0 Yes [id number] Take 1 Univers rol, 7-22 capsule by ity of vitamin d2, 00:00: mouth [place] (VITAMIN 00 weekly. Medical D2) 1,250 Branch mcg (50,000 unit) capsule ergocalcife 2022-0 Yes [id number] Take 1 Univers rol, 7-22 capsule by ity of vitamin d2, 00:00: mouth [place] (VITAMIN 00 weekly. Medical D2) 1,250 Branch mcg (50,000 unit) capsule ergocalcife 2022-0 Yes [id number] Take 1 Univers rol, 7-22 capsule by ity of vitamin d2, 00:00: mouth [place] (VITAMIN 00 weekly. Medical D2) 1,250 Branch mcg (50,000 unit) capsule ergocalcife 2022-0 Yes [id number] Take 1 Univers rol, 7-22 capsule by ity of vitamin d2, 00:00: mouth [place] (VITAMIN 00 weekly. Medical D2) 1,250 Branch mcg (50,000 unit) capsule ergocalcife 2022-0 Yes [id number] Take 1 Univers rol, 7-22 capsule by ity of vitamin d2, 00:00: mouth [place] (VITAMIN 00 weekly. Medical D2) 1,250 Branch mcg (50,000 unit) capsule ergocalcife 2022-0 Yes [id number] Take 1 Univers rol, 7-22 capsule by ity of vitamin d2, 00:00: mouth [place] (VITAMIN 00 weekly. Medical D2) 1,250 Branch mcg (50,000 unit) capsule ergocalcife 2022-0 Yes [id number] Take 1 Univers rol, 7-22 capsule by ity of vitamin d2, 00:00: mouth [place] (VITAMIN 00 weekly. Medical D2) 1,250 Branch mcg (50,000 unit) capsule ergocalcife 2022-0 Yes [id number] Take 1 Univers rol, 7-22 capsule by ity of vitamin d2, 00:00: mouth [place] (VITAMIN 00 weekly. Medical D2) 1,250 Branch mcg (50,000 unit) capsule ergocalcife 2022-0 Yes [id number] Take 1 Univers rol, 7-22 capsule by ity of vitamin d2, 00:00: mouth [place] (VITAMIN 00 weekly. Medical D2) 1,250 Branch mcg (50,000 unit) capsule ergocalcife 2022-0 Yes [id number] Take 1 Univers rol, 7-22 capsule by ity of vitamin d2, 00:00: mouth [place] (VITAMIN 00 weekly. Medical D2) 1,250 Branch mcg (50,000 unit) capsule ergocalcife 2022-0 Yes [id number] Take 1 Univers rol, 7-22 capsule by ity of vitamin d2, 00:00: mouth [place] (VITAMIN 00 weekly. Medical D2) 1,250 Branch mcg (50,000 unit) capsule ergocalcife 2022-0 Yes [id number] Take 1 Univers rol, 7-22 capsule by ity of vitamin d2, 00:00: mouth [place] (VITAMIN 00 weekly. Medical D2) 1,250 Branch mcg (50,000 unit) capsule ergocalcife 2022-0 Yes [id number] Take 1 Univers rol, 7-22 capsule by ity of vitamin d2, 00:00: mouth [place] (VITAMIN 00 weekly. Medical D2) 1,250 Branch mcg (50,000 unit) capsule ergocalcife 2022-0 Yes [id number] Take 1 Univers rol, 7-22 capsule by ity of vitamin d2, 00:00: mouth [place] (VITAMIN 00 weekly. Medical D2) 1,250 Branch mcg (50,000 unit) capsule metFORMIN 2021-0 Yes [id number] 1000mg Take 2 Univers 500 mg 4-25 tablets by ity of tablet 00:00: mouth 2 [place] 00 (two) Medical times Branch daily with meals. metFORMIN 2021-0 Yes [id number] 1000mg Take 2 Univers 500 mg 4-25 tablets by ity of tablet 00:00: mouth [place] (two) Medical times Branch daily with meals. metFORMIN 2022-0 Yes [id number] 1000mg Take 2 Univers 500 mg 4-25 tablets by ity of tablet 00:00: mouth (two) Medical times Branch daily with meals. metFORMIN 2022-0 Yes [id number] 1000mg Take 2 Univers 500 mg 4-25 tablets by ity of tablet 00:00: mouth (two) Medical times Branch daily with meals. metFORMIN 2022-0 Yes [id number] 1000mg Take 2 Univers 500 mg 4-25 tablets by ity of tablet 00:00: mouth (two) Medical times Branch daily with meals. metFORMIN 2022-0 Yes [id number] 1000mg Take 2 Univers 500 mg 4-25 tablets by ity of tablet 00:00: mouth (two) Medical times Branch daily with meals. metFORMIN 2022-0 Yes [id number] 1000mg Take 2 Univers 500 mg 4-25 tablets by ity of tablet 00:00: mouth (two) Medical times Branch daily with meals. metFORMIN 2-0 Yes [id number] 1000mg Take 2 Univers 500 mg 4-25 tablets by ity of tablet 00:00: mouth [place] (two) Medical times Branch daily with meals. metFORMIN 2022-0 Yes [id number] 1000mg Take 2 Univers 500 mg 4-25 tablets by ity of tablet 00:00: mouth (two) Medical times Branch daily with meals. metFORMIN 2022-0 Yes [id number] 1000mg Take 2 Univers 500 mg 4-25 tablets by ity of tablet 00:00: mouth [place] (two) Medical times Branch daily with meals. metFORMIN 2022-0 Yes [id number] 1000mg Take 2 Univers 500 mg 4-25 tablets by ity of tablet 00:00: mouth [place] (two) Medical times Branch daily with meals. metFORMIN 2022-0 Yes [id number] 1000mg Take 2 Univers 500 mg 4-25 tablets by ity of tablet 00:00: mouth (two) Medical times Branch daily with meals. metFORMIN 2022-0 Yes [id number] 1000mg Take 2 Univers 500 mg 4-25 tablets by ity of tablet 00:00: mouth (two) Medical times Branch daily with meals. metFORMIN 2022-0 Yes [id number] 1000mg Take 2 Univers 500 mg 4-25 tablets by ity of tablet 00:00: [facility] (two) Medical times Branch daily with meals. metFORMIN 202-0 Yes [id number] 1000mg Take 2 Univers 500 mg 4-25 tablets by ity of tablet 00:00: [facility] [place] (two) Medical times Branch daily with meals. metFORMIN 202-0 Yes [id number] 1000mg Take 2 Univers 500 mg 4-25 tablets by ity of tablet 00:00: [facility] (two) Medical times Branch daily with meals. metFORMIN 2021-0 Yes [id number] 1000mg Take 2 Univers 500 mg 4-25 tablets by ity of tablet 00:00: [facility] [place] (two) Medical times Branch daily with meals. metFORMIN 2021-0 Yes [id number] 1000mg Take 2 Univers 500 mg 4-25 tablets by ity of tablet 00:00: [facility] [place] ([facility]) Medical times Branch daily with meals. metFORMIN 2021-0 Yes [id number] 1000mg Take 2 Univers 500 mg 4-25 tablets by ity of tablet 00:00: [facility] (two) Medical times Branch daily with meals. metFORMIN 2021-0 Yes [id number] 1000mg Take 2 Univers 500 mg 4-25 tablets by ity of tablet 00:00: [facility] (two) Medical times Branch daily with meals. metFORMIN 2021-0 Yes [id number] 1000mg Take 2 Univers 500 mg 4-25 tablets by ity of tablet 00:00: [facility] [place] (two) Medical times Branch daily with meals. metFORMIN 2021-0 Yes [id number] 1000mg Take 2 Univers 500 mg 4-25 tablets by ity of tablet 00:00: [facility] [place] (two) Medical times Branch daily with meals. metFORMIN 2021-0 Yes [id number] 1000mg Take 2 Univers 500 mg 4-25 tablets by ity of tablet 00:00: [facility] [place] (two) Medical times Branch daily with meals. METOPROLOL 2020-0 Yes TAKE ONE Uni vers TARTRATE 25 3-25 TABLET BY ity of mg tablet 00:00: [facility] TWICE A Medical DAY Branch METOPROLOL 2020-0 Yes TAKE ONE Uni vers TARTRATE 25 3-25 TABLET BY ity of mg tablet 00:00: MOUTH TWICE A Medical DAY Branch METOPROLOL 202-0 Yes TAKE ONE Uni vers TARTRATE 25 3-25 TABLET BY ity of mg tablet 00:00: TWICE A Medical DAY Branch METOPROLOL 2020-0 Yes TAKE ONE Uni vers TARTRATE 25 3-25 TABLET BY ity of mg tablet 00:00: TWICE A Medical DAY Branch METOPROLOL 2020-0 Yes TAKE ONE Uni vers TARTRATE 25 3-25 TABLET BY ity of mg tablet 00:00: TWICE A Medical DAY Branch METOPROLOL 2020-0 Yes TAKE ONE Uni vers TARTRATE 25 3-25 TABLET BY ity of mg tablet 00:00: TWICE A Medical DAY Branch METOPROLOL 2020-0 Yes TAKE ONE Uni vers TARTRATE 25 3-25 TABLET BY ity of mg tablet 00:00: TWICE A Medical DAY Branch METOPROLOL 2020-0 Yes TAKE ONE Uni vers TARTRATE 25 3-25 TABLET BY ity of mg tablet 00:00: TWICE A Medical DAY Branch METOPROLOL 2020-0 Yes TAKE ONE Uni vers TARTRATE 25 3-25 TABLET BY ity of mg tablet 00:00: TWICE A Medical DAY Branch METOPROLOL 2020-0 Yes TAKE ONE Uni vers TARTRATE 25 3-25 TABLET BY ity of mg tablet 00:00: TWICE A Medical DAY Branch METOPROLOL 2020-0 Yes TAKE ONE Uni vers TARTRATE 25 3-25 TABLET BY ity of mg tablet 00:00: TWICE A Medical DAY Branch METOPROLOL 2020-0 Yes TAKE ONE Uni vers TARTRATE 25 3-25 TABLET BY ity of mg tablet 00:00: TWICE A Medical DAY Branch METOPROLOL 2020-0 Yes TAKE ONE Uni vers TARTRATE 25 3-25 TABLET BY ity of mg tablet 00:00: TWICE A Medical DAY Branch METOPROLOL 2020-0 Yes TAKE ONE Uni vers TARTRATE 25 3-25 TABLET BY ity of mg tablet 00:00: TWICE A Medical DAY Branch METOPROLOL 2020-0 Yes TAKE ONE Uni vers TARTRATE 25 3-25 TABLET BY ity of mg tablet 00:00: TWICE A Medical DAY Branch METOPROLOL 2021-0 Yes TAKE ONE Uni vers TARTRATE 25 3-25 TABLET BY ity of mg tablet 00:00: TWICE A Medical DAY Branch METOPROLOL 2020-0 Yes TAKE ONE Uni vers TARTRATE 25 3-25 TABLET BY ity of mg tablet 00:00: TWICE A Medical DAY Branch METOPROLOL 2020-0 Yes TAKE ONE Uni vers TARTRATE 25 3-25 TABLET BY ity of mg tablet 00:00: TWICE A Medical DAY Branch METOPROLOL 2020-0 Yes TAKE ONE Uni vers TARTRATE 25 3-25 TABLET BY ity of mg tablet 00:00: TWICE A Medical DAY Branch METOPROLOL 2020-0 Yes TAKE ONE Uni vers TARTRATE 25 3-25 TABLET BY ity of mg tablet 00:00: TWICE A Medical DAY Branch METOPROLOL 2020-0 Yes TAKE ONE Uni vers TARTRATE 25 3-25 TABLET BY ity of mg tablet 00:00: TWICE A Medical DAY Branch METOPROLOL 2020-0 Yes TAKE ONE Uni vers TARTRATE 25 3-25 TABLET BY ity of mg tablet 00:00: TWICE A Medical DAY Branch METOPROLOL 2020-0 Yes TAKE ONE Uni vers TARTRATE 25 3-25 TABLET BY ity of mg tablet 00:00: TWICE A Medical DAY Branch ONETOUCH 2020-0 Yes [id number] USE ONE U nivers ULTRA BLUE 9-15 STRIP TO ity o f TEST STRIP 00:00: TEST TWICE [place] strip A DAY [facility] Branch ONETOUCH 2020-0 Yes [id number] USE ONE U nivers DELICA PLUS 9-15 LANCET TO ity of LANCET 33 00:00: TEST TWICE [place] gauge Misc 00 A DAY Medical Branch ONETOUCH 2020-0 Yes [id number] USE ONE U nivers ULTRA BLUE 9-15 STRIP TO ity o f TEST STRIP 00:00: TEST TWICE [place] A DAY [facility] Branch ONETOUCH 2020-0 Yes [id number] USE ONE U nivers DELICA PLUS 9-15 LANCET TO ity of LANCET 33 00:00: TEST TWICE [place] gauge Misc A DAY [facility] Branch ONETOUCH 2020-0 Yes [id number] USE ONE U nivers ULTRA BLUE 9-15 STRIP TO ity o f TEST STRIP 00:00: TEST TWICE [place] 00 A DAY [facility] ONETOUCH 2019-0 Yes [id number] USE ONE U nivers DELICA PLUS 9-15 LANCET TO ity of LANCET 33 00:00: TEST TWICE [place] gauge Misc 00 A DAY [facility] Branch ONETOUCH 0 Yes [id number] USE ONE U nivers ULTRA BLUE 9-15 STRIP TO ity o f TEST STRIP 00:00: TEST TWICE [place] 00 A DAY [facility] Branch ONETOUCH 0 Yes [id number] USE ONE U nivers DELICA PLUS 9-15 LANCET TO ity of LANCET 33 00:00: TEST TWICE [place] gauge Misc A DAY [facility] Branch ONETOUCH 0 Yes [id number] USE ONE U nivers ULTRA BLUE 9-15 STRIP TO ity o f TEST STRIP 00:00: TEST TWICE [place] strip A DAY [facility] [id number] USE ONE U nivers DELICA PLUS 9-15 LANCET TO ity of LANCET 33 00:00: TEST TWICE [place] gauge Misc 00 A DAY [facility] Yes [id number] USE ONE U nivers ULTRA BLUE 9-15 STRIP TO ity o f TEST STRIP 00:00: TEST TWICE [place] strip A DAY [facility] ONETOUCH 2019-0 Yes [id number] USE ONE U nivers DELICA PLUS 9-15 LANCET TO ity of LANCET 33 00:00: TEST TWICE [place] gauge Misc 00 A DAY [facility] Branch ONETOUCH 2019-0 Yes [id number] USE ONE U nivers ULTRA BLUE 9-15 STRIP TO ity o f TEST STRIP 00:00: TEST TWICE [place] 00 A DAY [facility] ONETOUCH 2019-0 Yes [id number] USE ONE U nivers DELICA PLUS 9-15 LANCET TO ity of LANCET 33 00:00: TEST TWICE [place] gauge Misc A DAY [facility] Branch ONETOUCH 0 Yes [id number] USE ONE U nivers ULTRA BLUE 9-15 STRIP TO ity o f TEST STRIP 00:00: TEST TWICE [place] 00 A DAY [facility] Branch ONETOUCH 2019-0 Yes [id number] USE ONE U nivers DELICA PLUS 9-15 LANCET TO ity of LANCET 33 00:00: TEST TWICE [place] gauge Misc 00 A DAY [facility] Branch ONETOUCH 2019-0 Yes [id number] USE ONE U nivers ULTRA BLUE 9-15 STRIP TO ity o f TEST STRIP 00:00: TEST TWICE [place] 00 A DAY [facility] Branch ONETOUCH 2019-0 Yes [id number] USE ONE U nivers DELICA PLUS 9-15 LANCET TO ity of LANCET 33 00:00: TEST TWICE [place] gauge Misc 00 A DAY [facility] Branch ONETOUCH 2019-0 Yes [id number] USE ONE U nivers ULTRA BLUE 9-15 STRIP TO ity o f TEST STRIP 00:00: TEST TWICE [place] 00 A DAY [facility] Branch ONETOUCH 2019-0 Yes [id number] USE ONE U nivers DELICA PLUS 9-15 LANCET TO ity of LANCET 33 00:00: TEST TWICE [place] gauge Misc 00 A DAY [facility] Branch ONETOUCH 2019-0 Yes [id number] USE ONE U nivers ULTRA BLUE 9-15 STRIP TO ity o f TEST STRIP 00:00: TEST TWICE [place] 00 A DAY [facility] Branch ONETOUCH 2019-0 Yes [id number] USE ONE U nivers DELICA PLUS 9-15 LANCET TO ity of LANCET 33 00:00: TEST TWICE [place] gauge Misc A DAY Medical Branch ONETOUCH 2019-0 Yes [id number] USE ONE U nivers ULTRA BLUE 9-15 STRIP TO ity o f TEST STRIP 00:00: TEST TWICE [place] 00 A DAY [facility] Branch ONETOUCH 2019-0 Yes [id number] USE ONE U nivers DELICA PLUS 9-15 LANCET TO ity of LANCET 33 00:00: TEST TWICE [place] gauge Misc 00 A DAY [facility] Branch ONETOUCH 2019-0 Yes [id number] USE ONE U nivers ULTRA BLUE 9-15 STRIP TO ity o f TEST STRIP 00:00: TEST TWICE [place] strip A DAY [facility] Branch ONETOUCH 2019-0 Yes [id number] USE ONE U nivers DELICA PLUS 9-15 LANCET TO ity of LANCET 33 00:00: TEST TWICE [place] gauge Misc 00 A DAY [facility] Branch ONETOUCH 2019-0 Yes [id number] USE ONE U nivers ULTRA BLUE 9-15 STRIP TO ity o f TEST STRIP 00:00: TEST TWICE [place] 00 A DAY [facility] Branch ONETOUCH 2019-0 Yes [id number] USE ONE U nivers DELICA PLUS 9-15 LANCET TO ity of LANCET 33 00:00: TEST TWICE [place] gauge Misc 00 A DAY [facility] Branch ONETOUCH 0 Yes [id number] USE ONE U nivers ULTRA BLUE 9-15 STRIP TO ity o f TEST STRIP 00:00: TEST TWICE [place] 00 A DAY [facility] Branch ONETOUCH 0 Yes [id number] USE ONE U nivers DELICA PLUS 9-15 LANCET TO ity of LANCET 33 00:00: TEST TWICE [place] gauge Misc 00 A DAY [facility] Branch ONETOUCH 0 Yes [id number] USE ONE U nivers ULTRA BLUE 9-15 STRIP TO ity o f TEST STRIP 00:00: TEST TWICE [place] strip A DAY [facility] Branch ONETOUCH 0 Yes [id number] USE ONE U nivers DELICA PLUS 9-15 LANCET TO ity of LANCET 33 00:00: TEST TWICE [place] gauge Misc 00 A DAY [facility] Branch ONETOUCH 0 Yes [id number] USE ONE U nivers ULTRA BLUE 9-15 STRIP TO ity o f TEST STRIP 00:00: TEST TWICE [place] strip A [facility] Branch ONETOUCH 0 Yes [id number] USE ONE U nivers DELICA PLUS 9-15 LANCET TO ity of LANCET 33 00:00: TEST TWICE [place] gauge Misc 00 A DAY Medical Branch ONETOUCH 0 Yes [id number] USE ONE U nivers ULTRA BLUE 9-15 STRIP TO ity o f TEST STRIP 00:00: TEST TWICE [place] strip 00 A DAY [facility] Branch ONETOUCH 0 Yes [id number] USE ONE U nivers DELICA PLUS 9-15 LANCET TO ity of LANCET 33 00:00: TEST TWICE [place] gauge Misc 00 A DAY [facility] Branch ONETOUCH 0 Yes [id number] USE ONE U nivers ULTRA BLUE 9-15 STRIP TO ity o f TEST STRIP 00:00: TEST TWICE [place] 00 A DAY [facility] Branch ONETOUCH 2019-0 Yes [id number] USE ONE U nivers DELICA PLUS 9-15 LANCET TO ity of LANCET 33 00:00: TEST TWICE [place] gauge Misc 00 A DAY [facility] Branch ONETOUCH 2019-0 Yes [id number] USE ONE U nivers ULTRA BLUE 9-15 STRIP TO ity o f TEST STRIP 00:00: TEST TWICE [place] strip A DAY [facility] ONETOUCH 2019-0 Yes [id number] USE ONE U nivers DELICA PLUS 9-15 LANCET TO ity of LANCET 33 00:00: TEST TWICE [place] gauge Misc 00 A DAY [facility] Branch ONETOUCH 0 Yes [id number] USE ONE U nivers ULTRA BLUE 9-15 STRIP TO ity o f TEST STRIP 00:00: TEST TWICE [place] strip A [facility] ONETOUCH 0 Yes [id number] USE ONE U nivers DELICA PLUS 9-15 LANCET TO ity of LANCET 33 00:00: TEST TWICE [place] gauge Misc A DAY [facility] Branch ONETOUCH 2019-0 Yes [id number] USE ONE U nivers ULTRA BLUE 9-15 STRIP TO ity o f TEST STRIP 00:00: TEST TWICE [place] strip A DAY [facility] Branch ONETOUCH 2019-0 Yes [id number] USE ONE U nivers DELICA PLUS 9-15 LANCET TO ity of LANCET 33 00:00: TEST TWICE [place] gauge Misc A DAY [facility] Branch ONETOUCH 2019-0 Yes [id number] USE ONE U nivers ULTRA BLUE 9-15 STRIP TO ity o f TEST STRIP 00:00: TEST TWICE [place] strip A DAY [facility] Branch ONETOUCH 2019-0 Yes [id number] USE ONE U nivers DELICA PLUS 9-15 LANCET TO ity of LANCET 33 00:00: TEST TWICE [place] gauge Misc 00 A DAY [facility] Branch aspirin 81 2020-0 Yes [id number] 81mg Take 1 [facility] mg EC 5-07 tablet by ity of tablet 00:00: mouth [place] 00 daily. Medical Branch aspirin 81 2020-0 Yes [id number] 81mg Take 1 [facility] mg EC 5-07 tablet by ity of tablet 00:00: mouth [place] 00 daily. Medical Branch aspirin 81 2020-0 Yes [id number] 81mg Take 1 [facility] mg EC 5-07 tablet by ity of tablet 00:00: mouth [place] 00 daily. Medical Branch aspirin 81 2020-0 Yes [id number] 81mg Take 1 [facility] mg EC 5-07 tablet by ity of tablet 00:00: mouth [place] 00 daily. Medical Branch aspirin 81 2020-0 Yes [id number] 81mg Take 1 [facility] mg EC 5-07 tablet by ity of tablet 00:00: mouth [place] 00 daily. Medical Branch aspirin 81 2020-0 Yes [id number] 81mg Take 1 [facility] mg EC 5-07 tablet by ity of tablet 00:00: mouth [place] 00 daily. Medical Branch aspirin 81 2020-0 Yes [id number] 81mg Take 1 [facility] mg EC 5-07 tablet by ity of tablet 00:00: mouth [place] 00 daily. Medical Branch aspirin 81 2020-0 Yes [id number] 81mg Take 1 [facility] mg EC 5-07 tablet by ity of tablet 00:00: mouth [place] 00 daily. Medical Branch aspirin 81 2020-0 Yes [id number] 81mg Take 1 [facility] mg EC 5-07 tablet by ity of tablet 00:00: mouth [place] 00 daily. Medical Branch aspirin 81 2020-0 Yes [id number] 81mg Take 1 [facility] mg EC 5-07 tablet by ity of tablet 00:00: mouth [place] 00 daily. Medical Branch aspirin 81 2020-0 Yes [id number] 81mg Take 1 [facility] mg EC 5-07 tablet by ity of tablet 00:00: mouth [place] 00 daily. Medical Branch aspirin 81 2020-0 Yes [id number] 81mg Take 1 [facility] mg EC 5-07 tablet by ity of tablet 00:00: mouth [place] 00 daily. Medical Branch aspirin 81 2020-0 Yes [id number] 81mg Take 1 [facility] mg EC 5-07 tablet by ity of tablet 00:00: mouth [place] 00 daily. Medical Branch aspirin 81 2020-0 Yes [id number] 81mg Take 1 [facility] mg EC 5-07 tablet by ity of tablet 00:00: mouth [place] 00 daily. Medical Branch aspirin 81 2020-0 Yes [id number] 81mg Take 1 [facility] mg EC 5-07 tablet by ity of tablet 00:00: mouth [place] 00 daily. Medical Branch aspirin 81 2020-0 Yes [id number] 81mg Take 1 [facility] mg EC 5-07 tablet by ity of tablet 00:00: mouth [place] 00 daily. Medical Branch aspirin 81 2020-0 Yes [id number] 81mg Take 1 [facility] mg EC 5-07 tablet by ity of tablet 00:00: mouth [place] 00 daily. Medical Branch aspirin 81 2020-0 Yes [id number] 81mg Take 1 [facility] mg EC 5-07 tablet by ity of tablet 00:00: mouth [place] 00 daily. Medical Branch aspirin 81 2020-0 Yes [id number] 81mg Take 1 [facility] mg EC 5-07 tablet by ity of tablet 00:00: mouth [place] 00 daily. Medical Branch aspirin 81 2020-0 Yes [id number] 81mg Take 1 [facility] mg EC 5-07 tablet by ity of tablet 00:00: mouth [place] 00 daily. Medical Branch aspirin 81 2020-0 Yes [id number] 81mg Take 1 [facility] mg EC 5-07 tablet by ity of tablet 00:00: mouth [place] 00 daily. Medical Branch aspirin 81 2020-0 Yes [id number] 81mg Take 1 [facility] mg EC 5-07 tablet by ity of tablet 00:00: mouth [place] 00 daily. Medical Branch aspirin 81 2020-0 Yes [id number] 81mg Take 1 [facility] mg EC 5-07 tablet by ity of tablet 00:00: mouth [place] 00 daily. Medical Branch ProAir HFA ProAir HFA No 2{puff} ProAir HFA [place] 90 90 3-12 90 da mcg/actuati mcg/actuati 00:00: mcg/actuat Medical on aerosol on aerosol 00 ion [place] up inhaler 2 inhaler 2 aerosol {puff}s by {puff}s by inhaler 2 inhalation inhalation {puff}s by route. route. inhalation route. fluticasone fluticasone No 1{spray fluticason [place] propionate propionate 3-12 } e da 50 50 00:00: propionate Medical mcg/actuati mcg/actuati 00 50 G roup on nasal on nasal mcg/actuat spray,suspe spray,suspe ion nasal nsion 1 nsion 1 spray,susp {spray} by {spray} by ension 1 nasal nasal {spray} by route. route. nasal route. glimepiride 2018-09- No [id number] 2mg Take 1 [facility] 2 mg tablet 04-04 tablet by it y of 00:00: 00:00 mouth [place] 00 :00 daily with Medical breakfast. Branch Only if blood sugars are over 200 in the morning. glimepiride 2018-09- No [id number] 2mg Take 1 [facility] 2 mg tablet 04-04 tablet by it y of 00:00: 00:00 mouth [place] 00 :00 daily with Medical breakfast. Branch Only if blood sugars are over 200 in the morning. Blood-Gluco 2019-0 Yes [id number] Check Univers se Meter 9-03 sugars BID ity o f Kit 00:00: times a 00 day. Dx Medical Code Branch E11.9. Brand per insurance. Blood-Gluco 2019-0 Yes [id number] Check Univers se Meter 9-03 sugars BID ity o f Kit 00:00: times a day. Dx Medical Code Branch E11.9. Brand per insurance. Blood-Gluco 2019-0 Yes [id number] Check [facility] se Meter 9-03 sugars BID ity o f Kit 00:00: times a day. Dx Medical Code Branch E11.9. Brand per insurance. Blood-Gluco 2019-0 Yes [id number] Check [facility] se Meter 9-03 sugars BID ity o f Kit 00:00: times a day. Dx Medical Code Branch E11.9. Brand per insurance. Blood-Gluco 2019-0 Yes [id number] Check [facility] se Meter 9-03 sugars BID ity o f Kit 00:00: times a day. Dx Medical Code Branch E11.9. Brand per insurance. Blood-Gluco 2019-0 Yes [id number] Check [facility] se Meter 9-03 sugars BID ity o f Kit 00:00: times a day. Dx Medical Code Branch E11.9. Brand per insurance. Blood-Gluco 2019-0 Yes [id number] Check [facility] se Meter 9-03 sugars BID ity o f Kit 00:00: times a day. Dx Medical Code Branch E11.9. Brand per insurance. Blood-Gluco 2019-0 Yes [id number] Check [facility] se Meter 9-03 sugars BID ity o f Kit 00:00: times a [place] 00 day. Dx Medical Code Branch E11.9. Brand per insurance. Blood-Gluco 2019-0 Yes [id number] Check [facility] se Meter 9-03 sugars BID ity o f Kit 00:00: times a [place] 00 day. Dx Medical Code Branch E11.9. Brand per insurance. Blood-Gluco 2019-0 Yes [id number] Check [facility] se Meter 9-03 sugars BID ity o f Kit 00:00: times a [place] 00 day. Dx Medical Code Branch E11.9. Brand per insurance. Blood-Gluco 2019-0 Yes [id number] Check [facility] se Meter 9-03 sugars BID ity o f Kit 00:00: times a [place] 00 day. Dx Medical Code Branch E11.9. Brand per insurance. Blood-Gluco 2019-0 Yes [id number] Check [facility] se Meter 9-03 sugars BID ity o f Kit 00:00: times a [place] 00 day. Dx Medical Code Branch E11.9. Brand per insurance. Blood-Gluco 2019-0 Yes [id number] Check [facility] se Meter 9-03 sugars BID ity o f Kit 00:00: times a [place] 00 day. Dx Medical Code Branch E11.9. Brand per insurance. Blood-Gluco 2019-0 Yes [id number] Check [facility] se Meter 9-03 sugars BID ity o f Kit 00:00: times a [place] 00 day. Dx Medical Code Branch E11.9. Brand per insurance. Blood-Gluco 2019-0 Yes [id number] Check [facility] se Meter 9-03 sugars BID ity o f Kit 00:00: times a [place] 00 day. Dx Medical Code Branch E11.9. Brand per insurance. Blood-Gluco 2019-0 Yes [id number] Check Univers se Meter 9-03 sugars BID ity o f Kit 00:00: times a [place] 00 day. Dx Medical Code Branch E11.9. Brand per insurance. Blood-Gluco 2019-0 Yes [id number] Check [facility] se Meter 9-03 sugars BID ity o f Kit 00:00: times a [place] 00 day. Dx Medical Code Branch E11.9. Brand per insurance. Blood-Gluco 2019-0 Yes [id number] Check [facility] se Meter 9-03 sugars BID ity o f Kit 00:00: times a [place] 00 day. Dx Medical Code Branch E11.9. Brand per insurance. Blood-Gluco 2019-0 Yes [id number] Check Univers se Meter 9-03 sugars BID ity o f Kit 00:00: times a [place] 00 day. Dx Medical Code Branch E11.9. Brand per insurance. Blood-Gluco 2019-0 Yes [id number] Check Univers se Meter 05-17 sugars BID ity o f Kit 00:00: times a day. Dx Medical Code Branch E11.9. Brand per insurance. Blood-Gluco 2019-0 Yes [id number] Check Univers se Meter 05-17 sugars BID ity o f Kit 00:00: times a day. Dx Medical Code Branch E11.9. Brand per insurance. Blood-Gluco 2019-0 Yes [id number] Check [facility] se Meter 05-17 sugars BID ity o f Kit 00:00: times a day. Dx Medical Code Branch E11.9. Brand per insurance. Blood-Gluco 2019-0 Yes [id number] Check Univers se Meter 05-17 sugars BID ity o f Kit 00:00: times a day. Dx Medical Code Branch E11.9. Brand per insurance. metoprolol metoprolol No metoprolol [place] tartrate 25 tartrate 25 tartrate da mg tablet mg tablet 25 mg Medi [facility] tablet Group OneTouch OneTouch No OneTouch [place] Delica Plus Delica Plus Delica da Lancet 33 Lancet 33 Plus Medic al gauge gauge Lancet 33 Group gauge OneTouch OneTouch No OneTouch [place] Ultra Blue Ultra Blue Ultra Blue da Test Strip Test Strip Test Strip Medical Group OneTouch OneTouch No OneTouch [place] Ultra2 Ultra2 Ultra2 da Meter Meter Meter [facility] pantoprazol pantoprazol No pantoprazo [place] e 40 mg e 40 mg le 40 mg da tablet,farzad tablet,farzad tablet,del Medical yed release yed release ayed G roup release pravastatin pravastatin No pravastati [place] 40 mg 40 mg n 40 mg da tablet tablet tablet Medical Group tramadol 50 tramadol 50 No tramadol [place] mg tablet mg tablet 50 mg da tablet Medical Group atorvastati atorvastati No atorvastat [place] n 20 mg n 20 mg in 20 mg da tablet tablet tablet Medical Group clopidogrel clopidogrel No clopidogre [place] 75 mg 75 mg l 75 mg da tablet tablet tablet Medical Group metformin metformin No metformin [place] 500 mg 500 mg 500 mg da tablet tablet tablet Medical Group metoprolol metoprolol No metoprolol [place] succinate succinate succinate da ER 25 mg ER 25 mg ER 25 mg Med ical tablet,exte tablet,exte tablet,ext Group nded nded ended release 24 release 24 release 24 hr hr hr Immunizations Ordered Filled Immunization Date Status Comments [facility] e Immunization Name Name Pneumococcal 2020-07-02 Completed University o f Polysaccharide, 00:00:00 [place] Med ical PPSV23 (PNEUMOVAX) Branch Pneumococcal 2020-07-02 Completed University o f Polysaccharide, 00:00:00 [place] Med ical PPSV23 (PNEUMOVAX) Branch Pneumococcal 2020-07-02 Completed University o f Polysaccharide, 00:00:00 [place] Med ical PPSV23 (PNEUMOVAX) Branch Pneumococcal 2020-07-02 Completed University o f Polysaccharide, 00:00:00 [place] Med ical PPSV23 (PNEUMOVAX) Branch Pneumococcal 2020-07-02 Completed University o f Polysaccharide, 00:00:00 [place] Med ical PPSV23 (PNEUMOVAX) Branch Pneumococcal 2020-07-02 Completed University o f Polysaccharide, 00:00:00 [place] Med ical PPSV23 (PNEUMOVAX) Branch Pneumococcal 2020-07-02 Completed University o f Polysaccharide, 00:00:00 [place] Med ical PPSV23 (PNEUMOVAX) Branch Pneumococcal 2020-07-02 Completed University o f Polysaccharide, 00:00:00 [place] Med ical PPSV23 (PNEUMOVAX) Branch Pneumococcal 2020-07-02 Completed University o f Polysaccharide, 00:00:00 [place] Med ical PPSV23 (PNEUMOVAX) Branch Pneumococcal 2020-07-02 Completed University o f Polysaccharide, 00:00:00 [place] Med ical PPSV23 (PNEUMOVAX) Branch Pneumococcal 2020-07-02 Completed University o f Polysaccharide, 00:00:00 [place] Med ical PPSV23 (PNEUMOVAX) Branch Pneumococcal 2020-07-02 Completed University o f Polysaccharide, 00:00:00 [place] Med ical PPSV23 (PNEUMOVAX) Branch Pneumococcal 2020-07-02 Completed University o f Polysaccharide, 00:00:00 [place] Med ical PPSV23 (PNEUMOVAX) Branch Pneumococcal 2020-07-02 Completed University o f Polysaccharide, 00:00:00 [place] Med ical PPSV23 (PNEUMOVAX) Branch Pneumococcal 2020-07-02 Completed University o f Polysaccharide, 00:00:00 [place] Med ical PPSV23 (PNEUMOVAX) Branch Pneumococcal 2020-07-02 Completed University o f Polysaccharide, 00:00:00 [place] Med ical PPSV23 (PNEUMOVAX) Branch Pneumococcal 2020-07-02 Completed University o f Polysaccharide, 00:00:00 [place] Med ical PPSV23 (PNEUMOVAX) Branch Pneumococcal 2020-07-02 Completed University o f Polysaccharide, 00:00:00 [place] Med ical PPSV23 (PNEUMOVAX) Branch Pneumococcal 2020-07-02 Completed University o f Polysaccharide, 00:00:00 [place] Med ical PPSV23 (PNEUMOVAX) Branch Pneumococcal 2020-07-02 Completed University o f Polysaccharide, 00:00:00 [place] Med ical PPSV23 (PNEUMOVAX) Branch Pneumococcal 2020-07-02 Completed University o f Polysaccharide, 00:00:00 [place] Med ical PPSV23 (PNEUMOVAX) Branch Pneumococcal 2020-07-02 Completed University o f Polysaccharide, 00:00:00 [place] Med ical PPSV23 (PNEUMOVAX) Branch Pneumococcal 2020-07-02 Completed University o f Polysaccharide, 00:00:00 [place] Med ical PPSV23 (PNEUMOVAX) Branch Influenza High Dose 2020-06-18 Completed [facility] rs[facility] of [facility] 00:00:00 [facility] Influenza High Dose 2020-06-18 Completed Unive rsity of [facility] 00:00:00 [facility] Influenza High Dose 2020-06-18 Completed Unive rsity of [place] 00:00:00 [facility] Influenza High Dose 2020-06-18 Completed Unive rsity of [place] 00:00:00 [facility] Influenza High Dose 2020-06-18 Completed Unive rsity of [place] 00:00:00 [facility] Influenza High Dose 2020-06-18 Completed Unive rsity of [place] 00:00:00 [facility] Influenza High Dose 2020-06-18 Completed Unive rsity of [place] 00:00:00 [facility] Influenza High Dose 2020-06-18 Completed Unive rsity of [place] 00:00:00 [facility] Influenza High Dose 2020-06-18 Completed Unive rsity of [place] 00:00:00 [facility] Influenza High Dose 2020-06-18 Completed Unive rsity of [place] 00:00:00 [facility] Influenza High Dose 2020-06-18 Completed Unive rsity of [place] 00:00:00 [place] [facility] Influenza High Dose 2020-06-18 Completed Unive rsity of [facility] 00:00:00 [facility] Influenza High Dose 2020-06-18 Completed Unive rsity of [place] 00:00:00 [facility] Influenza High Dose 2020-06-18 Completed Unive rsity of [place] 00:00:00 [facility] Influenza High Dose 2020-06-18 Completed Unive rsity of [place] 00:00:00 [facility] Influenza High Dose 2020-06-18 Completed Unive rsity of [place] 00:00:00 [facility] Influenza High Dose 2020-06-18 Completed Unive rsity of [place] 00:00:00 [facility] Influenza High Dose 2020-06-18 Completed Unive rsity of [place] 00:00:00 [facility] Influenza High Dose 2020-06-18 Completed Unive rsity of [place] 00:00:00 [facility] Influenza High Dose 2020-06-18 Completed Unive rsity of [place] 00:00:00 [facility] Influenza High Dose 2020-06-18 Completed Unive rsity of [place] 00:00:00 [facility] Influenza High Dose 2020-06-18 Completed Unive rsity of [place] 00:00:00 [facility] Influenza High Dose 2020-06-18 Completed Unive rsity of [place] 00:00:00 [facility] Influenza High Dose 2019-07-12 Completed Unive rsity of 00:00:00 [facility] Influenza High Dose 2019-07-12 Completed Unive rsity of 00:00:00 [facility] Influenza High Dose 2019-07-12 Completed Unive rsity of 00:00:00 [facility] Influenza High Dose 2019-07-12 Completed Unive rsity of 00:00:00 [facility] Influenza High Dose 2019-07-12 Completed Unive rsity of 00:00:00 [facility] Influenza High Dose 2019-07-12 Completed Unive rsity of 00:00:00 [facility] Influenza High Dose 2019-07-12 Completed Unive rsity of 00:00:00 [facility] Influenza High Dose 2019-07-12 Completed Unive rsity of 00:00:00 [facility] Influenza High Dose 2019-07-12 Completed Unive rsity of 00:00:00 [facility] Influenza High Dose 2019-07-12 Completed Unive rsity of 00:00:00 [facility] Influenza High Dose 2019-07-12 Completed Unive rsity of 00:00:00 [facility] Influenza High Dose 2019-07-12 Completed Unive rsity of 00:00:00 [facility] Influenza High Dose 2019-07-12 Completed Unive rsity of 00:00:00 [facility] Influenza High Dose 2019-07-12 Completed Unive rsity of 00:00:00 [facility] Influenza High Dose 2019-07-12 Completed Unive rsity of 00:00:00 [facility] Influenza High Dose 2019-07-12 Completed Unive rsity of 00:00:00 [facility] Influenza High Dose 2019-07-12 Completed Unive rsity of 00:00:00 [facility] Influenza High Dose 2019-07-12 Completed Unive rsity of 00:00:00 [facility] Influenza High Dose 2019-07-12 Completed Unive rsity of 00:00:00 [facility] Influenza High Dose 2019-07-12 Completed Unive rsity of 00:00:00 [facility] Influenza High Dose 2019-07-12 Completed Unive rsity of 00:00:00 [facility] Influenza High Dose 2019-07-12 Completed Unive rsity of 00:00:00 [facility] Influenza High Dose 2019-07-12 Completed Unive rsity of 00:00:00 [facility] influenza, high influenza, high 2019-07-12 Completed [facility] dose seasonal dose seasonal 00:00:00 Group Influenza High Dose 2018-12-11 Completed Unive rsity of 00:00:00 [facility] Influenza High Dose 2018-12-11 Completed Unive rsity of 00:00:00 [facility] Influenza High Dose 2018-12-11 Completed Unive rsity of 00:00:00 [facility] Influenza High Dose 2018-12-11 Completed Unive rsity of 00:00:00 [facility] Influenza High Dose 2018-12-11 Completed Unive rsity of 00:00:00 [facility] Influenza High Dose 2018-12-11 Completed Unive rsity of 00:00:00 [facility] Influenza High Dose 2018-12-11 Completed Unive rsity of 00:00:00 [facility] Influenza High Dose 2018-12-11 Completed Unive rsity of 00:00:00 [facility] Influenza High Dose 2018-12-11 Completed Unive rsity of 00:00:00 [facility] Influenza High Dose 2018-12-11 Completed Unive rsity of 00:00:00 [facility] Influenza High Dose 2018-12-11 Completed Unive rsity of 00:00:00 [facility] Influenza High Dose 2018-12-11 Completed Unive rsity of 00:00:00 [facility] Influenza High Dose 2018-12-11 Completed Unive rsity of 00:00:00 [facility] Influenza High Dose 2018-12-11 Completed Unive rsity of 00:00:00 [facility] Influenza High Dose 2018-12-11 Completed Unive rsity of 00:00:00 [facility] Influenza High Dose 2018-12-11 Completed Unive rsity of 00:00:00 [facility] Influenza High Dose 2018-12-11 Completed Unive rsity of 00:00:00 [facility] Influenza High Dose 2018-12-11 Completed Unive rsity of 00:00:00 [facility] Influenza High Dose 2018-12-11 Completed Unive rsity of 00:00:00 [facility] Influenza High Dose 2018-12-11 Completed Unive rsity of 00:00:00 [facility] Influenza High Dose 2018-12-11 Completed Unive rsity of 00:00:00 [facility] Influenza High Dose 2018-12-11 Completed Unive rsity of 00:00:00 [facility] Influenza High Dose 2018-12-11 Completed Unive rsity of 00:00:00 [facility] influenza, high influenza, high 2018-12-11 Completed [facility] dose seasonal dose seasonal 00:00:00 Group Td 2017-07-02 Completed University of 00:00:00 [facility] Td 2017-07-02 Completed University of 00:00:00 [facility] Td 2017-07-02 Completed University of 00:00:00 [facility] Td 2017-07-02 Completed University of 00:00:00 [facility] Td 2017-07-02 Completed University of 00:00:00 [facility] Td 2017-07-02 Completed University of 00:00:00 [facility] Td 2017-07-02 Completed University of 00:00:00 [facility] Td 2017-07-02 Completed University of 00:00:00 [facility] Td 2017-07-02 Completed University of 00:00:00 [facility] Td 2017-07-02 Completed University of 00:00:00 [facility] Td 2017-07-02 Completed University of 00:00:00 [facility] Td 2017-07-02 Completed University of 00:00:00 [facility] Td 2017-07-02 Completed University of 00:00:00 [facility] Td 2017-07-02 Completed University of 00:00:00 [facility] Td 2017-07-02 Completed University of 00:00:00 [facility] Td 2017-07-02 Completed University of 00:00:00 [facility] Td 2017-07-02 Completed University of 00:00:00 [facility] Td 2017-07-02 Completed University of 00:00:00 [facility] Td 2017-07-02 Completed University of 00:00:00 [facility] Td 2017-07-02 Completed University of 00:00:00 [facility] Td 2017-07-02 Completed University of 00:00:00 [facility] Td 2017-07-02 Completed University of 00:00:00 [facility] Td 2017-07-02 Completed University of 00:00:00 [facility] Pneumococcal 13 2016-09-24 Completed Universit y of Conjugate, PCV13 00:00:00 [place] [facility] (Prevnar 13) [place] Influenza Virus 2016-09-24 Completed Universit y of Vaccine Quad IM 3+ 00:00:00 [facility] Pneumococcal 13 2016-09-24 Completed Universit y of Conjugate, PCV13 00:00:00 [facility] dical (Prevnar 13) [place] Influenza Virus 2016-09-24 Completed Universit y of Vaccine Quad IM 3+ 00:00:00 [facility] Pneumococcal 13 2016-09-24 Completed Universit y of Conjugate, PCV13 00:00:00 [place] [facility] (Prevnar 13) [place] Influenza Virus 2016-09-24 Completed Universit y of Vaccine Quad IM 3+ 00:00:00 [facility] Pneumococcal 13 2016-09-24 Completed Universit y of Conjugate, PCV13 00:00:00 [place] [facility] (Prevnar 13) [place] Influenza Virus 2016-09-24 Completed Universit y of Vaccine Quad IM 3+ 00:00:00 [facility] Pneumococcal 13 2016-09-24 Completed Universit y of Conjugate, PCV13 00:00:00 [facility] dical (Prevnar 13) [place] Influenza Virus 2016-09-24 Completed Universit y of Vaccine Quad IM 3+ 00:00:00 [facility] Pneumococcal 13 2016-09-24 Completed Universit y of Conjugate, PCV13 00:00:00 [place] [facility] (Prevnar 13) Branch Influenza Virus 2016-09-24 Completed Universit y of Vaccine Quad IM 3+ 00:00:00 [facility] Pneumococcal 13 2016-09-24 Completed Universit y of Conjugate, PCV13 00:00:00 [place] [facility] (Prevnar 13) Branch Influenza Virus 2016-09-24 Completed Universit y of Vaccine Quad IM 3+ 00:00:00 [facility] Pneumococcal 13 2016-09-24 Completed Universit y of Conjugate, PCV13 00:00:00 [place] [facility] (Prevnar 13) Branch Influenza Virus 2016-09-24 Completed Universit y of Vaccine Quad IM 3+ 00:00:00 [facility] Pneumococcal 13 2016-09-24 Completed Universit y of Conjugate, PCV13 00:00:00 [place] [facility] (Prevnar 13) [place] Influenza Virus 2016-09-24 Completed Universit y of Vaccine Quad IM 3+ 00:00:00 [facility] Pneumococcal 13 2016-09-24 Completed Universit y of Conjugate, PCV13 00:00:00 [place] [facility] (Prevnar 13) Branch Influenza Virus 2016-09-24 Completed Universit y of Vaccine Quad IM 3+ 00:00:00 [facility] Pneumococcal 13 2016-09-24 Completed Universit y of Conjugate, PCV13 00:00:00 [place] [facility] (Prevnar 13) Branch Influenza Virus 2016-09-24 Completed Universit y of Vaccine Quad IM 3+ 00:00:00 [facility] Pneumococcal 13 2016-09-24 Completed Universit y of Conjugate, PCV13 00:00:00 [place] [facility] (Prevnar 13) Branch Influenza Virus 2016-09-24 Completed Universit y of Vaccine Quad IM 3+ 00:00:00 [facility] Pneumococcal 13 2016-09-24 Completed Universit y of Conjugate, PCV13 00:00:00 [place] [facility] (Prevnar 13) [place] Influenza Virus 2016-09-24 Completed Universit y of Vaccine Quad IM 3+ 00:00:00 [facility] Pneumococcal 13 2016-09-24 Completed Universit y of Conjugate, PCV13 00:00:00 [place] [facility] (Prevnar 13) Branch Influenza Virus 2016-09-24 Completed Universit y of Vaccine Quad IM 3+ 00:00:00 [facility] Pneumococcal 13 2016-09-24 Completed Universit y of Conjugate, PCV13 00:00:00 [place] [facility] (Prevnar 13) Branch Influenza Virus 2016-09-24 Completed Universit y of Vaccine Quad IM 3+ 00:00:00 [facility] Pneumococcal 13 2016-09-24 Completed Universit y of Conjugate, PCV13 00:00:00 [place] [facility] (Prevnar 13) Branch Influenza Virus 2016-09-24 Completed Universit y of Vaccine Quad IM 3+ 00:00:00 [facility] Pneumococcal 13 2016-09-24 Completed Universit y of Conjugate, PCV13 00:00:00 [facility] dical (Prevnar 13) Branch Influenza Virus 2016-09-24 Completed Universit y of Vaccine Quad IM 3+ 00:00:00 [facility] Pneumococcal 13 2016-09-24 Completed Universit y of Conjugate, PCV13 00:00:00 [facility] dical (Prevnar 13) [place] Influenza Virus 2016-09-24 Completed Universit y of Vaccine Quad IM 3+ 00:00:00 [facility] Pneumococcal 13 2016-09-24 Completed Universit y of Conjugate, PCV13 00:00:00 [facility] dical (Prevnar 13) Branch Influenza Virus 2016-09-24 Completed Universit y of Vaccine Quad IM 3+ 00:00:00 [facility] Pneumococcal 13 2016-09-24 Completed Universit y of Conjugate, PCV13 00:00:00 [facility] dical (Prevnar 13) Branch Influenza Virus 2016-09-24 Completed Universit y of Vaccine Quad IM 3+ 00:00:00 [facility] Pneumococcal 13 2016-09-24 Completed Universit y of Conjugate, PCV13 00:00:00 [place] [facility] (Prevnar 13) Branch Influenza Virus 2016-09-24 Completed Universit y of Vaccine Quad IM 3+ 00:00:00 [facility] Pneumococcal 13 2016-09-24 Completed Universit y of Conjugate, PCV13 00:00:00 [place] [facility] (Prevnar 13) [place] Influenza Virus 2016-09-24 Completed Universit y of Vaccine Quad IM 3+ 00:00:00 [facility] Pneumococcal 13 2016-09-24 Completed Universit y of Conjugate, PCV13 00:00:00 [facility] dical (Prevnar 13) Branch Influenza Virus 2016-09-24 Completed Universit y of Vaccine Quad IM 3+ 00:00:00 [facility] pneumococcal pneumococcal 2016-09-24 Completed [facility] conjugate PCV 13 conjugate PCV 13 00:00:00 Gr oup influenza, influenza, 2016-09-24 Completed [facility] injectable, injectable, 00:00:00 Group quadrivalent, quadrivalent, preservative free preservative free Td 2008-10-13 Completed University of 00:00:00 [facility] Td 2008-10-13 Completed University of 00:00:00 [facility] Td 2008-10-13 Completed University of 00:00:00 [facility] Td 2008-10-13 Completed University of 00:00:00 [facility] Td 2008-10-13 Completed University of 00:00:00 [facility] Td 2008-10-13 Completed University of 00:00:00 [facility] Td 2008-10-13 Completed University of 00:00:00 [facility] Td 2008-10-13 Completed University of 00:00:00 [facility] Td 2008-10-13 Completed University of 00:00:00 [facility] Td 2008-10-13 Completed University of 00:00:00 [facility] Td 2008-10-13 Completed University of 00:00:00 [facility] Td 2008-10-13 Completed University of 00:00:00 [facility] Td 2008-10-13 Completed University of 00:00:00 [facility] Td 2008-10-13 Completed University of 00:00:00 [facility] Td 2008-10-13 Completed University of 00:00:00 [facility] Td 2008-10-13 Completed University of 00:00:00 [facility] Td 2008-10-13 Completed University of 00:00:00 [facility] Td 2008-10-13 Completed University of 00:00:00 [facility] Td 2008-10-13 Completed University of 00:00:00 [facility] Td 2008-10-13 Completed University of 00:00:00 [facility] Td 2008-10-13 Completed University of 00:00:00 [facility] Td 2008-10-13 Completed University of 00:00:00 [facility] Td 2008-10-13 Completed University of 00:00:00 [facility] Td(adult) Td(adult) 2008-10-13 Completed [facility] unspecified unspecified 00:00:00 Group formulation formulation Vital Signs Vital Name Observation Time Observation Value Comments Source Systolic blood 2022-07-08 18:39:00 176 mm[Hg] Univer sity of pressure [facility] Diastolic blood 2022-07-08 18:39:00 72 mm[Hg] Unive rsity of pressure [facility] Heart rate 2022-07-08 18:38:00 59 /min Universi ty of [facility] [place] [facility] Body temperature 2022-07-08 18:38:00 36.94 Vanesa Univ ersity of [facility] Body height 2022-07-08 18:38:00 162.6 cm Universi ty of [facility] [place] [facility] Body weight 2022-07-08 18:38:00 83.462 kg Universi ty of [facility] [place] [facility] BMI 2022-07-08 18:38:00 31.58 kg/m2 Universi ty of [facility] [place] [facility] Oxygen saturation in 2022-07-08 18:38:00 98 /min University of Arterial blood by [place] [facility] Pulse oximetry Branch Systolic blood 2022-04-04 13:52:00 155 mm[Hg] Univer sity of pressure [facility] Diastolic blood 2022-04-04 13:52:00 83 mm[Hg] Unive rsity of pressure [facility] Heart rate 2022-04-04 13:52:00 59 /min Universi ty of [place] [facility] Body temperature 2022-04-04 13:52:00 36.06 Vanesa Univ ersity of [facility] [place] [facility] Respiratory rate 2022-04-04 13:52:00 18 /min Univ ersity of [facility] Body height 2022-04-04 13:52:00 160 cm Universi ty [facility] [place] [facility] Body weight 2022-04-04 13:52:00 84.823 kg Universi ty of [facility] [place] [facility] BMI 2022-04-04 13:52:00 33.13 kg/m2 Universi ty of [facility] [place] [facility] Oxygen saturation in 2022-04-04 13:52:00 97 /min University of Arterial blood by [employer] marcos Pulse oximetry Branch BP Diastolic 2020-12-25 00:00:00 74 mm[Hg] [facility] Height 2020-12-25 00:00:00 63 [in_i] [facility] BMI (Body Mass 2020-12-25 00:00:00 34.1 kg/m2 [facility] cryptographic center specialist Medical Index) Group BP Systolic 2020-12-25 00:00:00 147 mm[Hg] [facility] Body Weight 2020-12-25 00:00:00 192.3 [lb_av] [facility] BP Diastolic 2020-06-26 00:00:00 67 mm[Hg] [facility] Height 2020-06-26 00:00:00 63 [in_i] [facility] BMI (Body Mass 2020-06-26 00:00:00 34.6 kg/m2 [facility] cryptographic center specialist Medical Index) Group BP Systolic 2020-06-26 00:00:00 150 mm[Hg] [facility] Body Weight 2020-06-26 00:00:00 195.1 [lb_av] [facility] BP Diastolic 2020-05-14 00:00:00 81 mm[Hg] [facility] Height 2020-05-14 00:00:00 63 [in_i] [facility] BMI (Body Mass 2020-05-14 00:00:00 34 [facility] BP Systolic 2020-05-14 00:00:00 175 mm[Hg] [facility] Body Weight 2020-05-14 00:00:00 192.1 [lb_av] [facility] Procedures Procedure Date / Time Performed Performing Clinician [facility] e POCT HEMOGLOBIN A1C 2022-07-08 19:35:00 Ciera Olea [facility] MRI, internal auditory 2020-05-14 00:00:00 [facility] ord Medical canal, w/wo contrast Group Plan of Care Planned Activity Planned Date Details Comments Source Future Scheduled 2022-08-26 SHINGLES VACCINES (1 Met [facility] Test 12:53:45 of 2) [code = SHINGLES VACCINES (1 of 2)] Future Scheduled 2022-08-26 INFLUENZA VACCINE [facility] Test 12:53:45 [code = INFLUENZA VACCINE] Future Scheduled 2022-08-26 COVID-19 VACCINE (#1) [facility] Test 12:53:45 [code = COVID-19 VACCINE (#1)] Future Scheduled 2022-08-26 Hepatitis C screening [facility] Test 12:53:45 (procedure) [code = 398059631] Future Scheduled 2022-08-26 BREAST CANCER [facility] Test 12:53:45 SCREENING [code = BREAST CANCER SCREENING] Future Scheduled 2022-08-26 COLONOSCOPY SCREENING [facility] Test 12:53:45 [code = COLONOSCOPY SCREENING] Encounters Start End Encounter Admission Attending Care Care Encounter Source Date/Time Date/Time Type Type Clinicians Facility Department ID 2021-07-14 Emergency [facility] [id number] Univers 19:16:39 ity [facility] 2021-07-11 Emergency [facility] [id number] Univers 10:47:53 [facility] 2022-10-07 2022-10-07 [facility] [id number] Univers 11:00:00 11:00:00 [facility] 2022-08-29 2022-08-29 Telephone [facility] [id number] Univers 00:00:00 00:00:00 [facility] [id number] ity of [place] [id number] [place] as ЮЛИЯ?BLEA [id number] [address] OFFICE [facility] 2022-08-19 2022-08-19 Telephone [facility] [id number] Univers 00:00:00 00:00:00 [facility] [id number] ity of [place] [id number] [place] ЮЛИЯ?BLEA [id number] [address] OFFICE [facility] 2022-07-22 2022-07-22 Telephone [facility] [id number] Univers 00:00:00 00:00:00 [facility] [id number] ity of [place] [id number] [place] ЮЛИЯ?BLEA [id number] [address] OFFICE [facility] 2022-07-16 2022-07-16 Telephone [place], [facility] [id number] Univers 00:00:00 00:00:00 [facility] [id number] [facility] [id number] [place] ЮЛИЯ?BLEA [id number] [address] OFFICE [facility] 2022-07-09 2022-07-09 Telephone [facility] [id number] Univers 00:00:00 00:00:00 [facility] [id number] ity of [place] [id number] [place] ЮЛИЯ?BLEA [id number] [address] 2022-07-08 2022-07-08 Outpatient [facility] [id number] Univers 14:00:00 15:04:02 [facility] 2022-07-08 2022-07-08 Office [facility] 1..840.114 [id number] Univers 14:00:00 15:04:02 Visit [facility] [id number] ity of [place] [id number] [place] as ЮЛИЯ?BLEA [id number] [address] OFFICE [facility] 2022-07-07 2022-07-07 Outpatient R [facility] [id number] Univers 16:00:00 16:00:00 [facility] 2022-07-07 2022-07-07 Outpatient [facility] [id number] Univers 08:00:00 08:00:00 ANKITA [facility] 2022-06-24 2022-06-24 [place] [facility] [id number] Univers 00:00:00 00:00:00 Ankita VICTOR [id number] ity [facility] [id number] [id number] [address] 2022-05-26 2022-05-26 [facility] 1.2.840.114 [id number] Univers 00:00:00 00:00:00 Ankita VICTOR [id number] it[id number] [id number] [address] 2022-05-16 2022-05-16 [facility] [id number] Univers 11:00:00 11:00:00 ANKITA [facility] 2022-04-21 2022-04-21 [id number] Univers 10:05:54 23:59:00 ANKITA [facility] 2022-04-21 2022-04-21 [facility] 1.2.840.114 [id number] Univers 10:05:54 23:59:00 Encounter Ankita VICTOR 350.1.13.10 ity [facility] [id number] [id number] [address] 2022-04-11 2022-04-11 Lab Lesleyluismilagros, 1.2.840.1 [id number] Methodi 11:40:00 11:45:00 [address]mas [address] 3.430.2.7 Hospit a .3.538985 l .8 2022-04-11 2022-04-11 [facility] [id number] [address] [place] [address] 00:00:00 00:00:[address] NADIM [address] 2022-04-11 2022-04-11 [facility] 1.2.840.114 [id number] [facility] 00:00:00 00:00:00 Ankita VICTOR 350.1.13.10 ity [facility] 4[place] [id number] [address] 2022-04-11 2022-04-11 Travel 1.2.840.1 [id number] [id number] Methodi 00:00:00 00:00:[address] 3.430.2.7 0.2.7.3.698 Ho spita .3.779891 084.8 l .8 2022-04-10 2022-04-10 [facility] 1.2.840.114 [id number] Univers 00:00:00 00:00:00 Ankita VICTOR 350.1.13.10 ity [place] [id number] [facility] 2022-04-04 2022-04-04 Outpatient [facility] [id number] Univers 08:40:00 10:32:59 ANKITA johnson [facility] 2022-04-04 2022-04-04 [facility] 1.2.840.114 [id number] Univers 08:40:00 10:32:59 Visit Ankita VICTOR 350.1.13.10 ity [facility] [id number] [id number] [address] 2022-04-04 2022-04-04 Outpatient [facility] [id number] Univers 08:40:00 08:40:00 ANKITA mcgeey 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 13.10 ity [place] [id number] [facility] 353 [facility] 2022-04-01 2022-04-01 Outpatient R PETER [facility] [id number] Univers 09:45:00 09:45:00 ANKITA mcgeey [facility] 2022-03-28 2022-03-28 Outpatient R [facility] [id number] Univers 08:15:00 08:15:00 ity [facility] 2022-03-28 2022-03-28 Outpatient [facility] [id number] Univers 08:15:00 08:15:00 ANKITA johnson [facility] 2022-01-22 2022-01-22 [place] [id number] [place] 12:00:00 12:00:00 0705 [facility] 2022-01-22 2022-01-22 [place] Yan[place] [id number] [place] 11:35:00 11:35:00 0511 [facility] 2022-01-09 2022-01-09 [place]patient Yan_[place] [id number] [place] 02:50:00 02:50:00 0428 [facility] 2022-01-09 2022-01-09 Outpatient Yan_W MMG [facility] [id number] [place] 02:50:00 02:50:00 0505 [facility] 2022-01-06 2022-01-06 Outpatient R PETER [facility] [id number] Univers 15:00:00 16:40:42 ANKITADAVE johnson [facility] 2022-01-06 2022-01-06 [facility] 1.2.840.114 [id number] Univers 15:00:00 16:40:42 Visit Ankita VICTOR 350.1.13.10 it[place] [id number] Ne dical [address] 2022-01-06 2022-01-06 Orders Doctor ELLIOTT 1.2.840.114 [id number] Univers 00:00:00 00:00:00 Only Unassigned, ROXIE 350.1.13.10 ity of [place] [facility] 4.2.7.2.686 [place] as [id number] [address] 2021-12-10 2021-12-10 Telephone [place], [facility] 1.2.840.114 [id number] Univers 00:00:00 00:00:00 Ankita VICTOR 350.1.13.10 it[place] [id number] Ne dical NAL [address] BUILDING 2021-09-19 2021-09-19 Orders Doctor ELLIOTT 1.2.840.114 [id number] Univers 00:00:00 00:00:00 Only Unassigned, ROXIE 350.1.13.10 ity of [place] [facility] 4.2.7.2.686 [place] as [id number] [facility] 009 Branch 2021-07-24 2021-07-24 Outpatient [facility] [id number] Univers 13:00:00 13:00:00 SENDIL ity of [facility] 2021-07-22 2021-07-22 Telephone ELLIOTT Maria 1.2.113.909 [id number] [facility] 00:00:00 00:00:00 Ciera FAUSTIN 350.1.13.10 ity of HOSPITAL 4.2.7.2.686 [place] as [id number] [address] 2021-07-01 2021-07-01 Telephone ELLIOTT Maria [id number] [id number] Univers 00:00:00 00:00:00 Cirea FAUSTIN 350.1.13.10 ity of HOSPITAL 4.2.7.2.686 [place] [id number] [place] [id number] [place] 2021-02-04 2021-02-04 [facility] 1.2.840.114 [id number] Univers 00:00:00 00:00:00 Ambika Victor 350.1.13.10 ity of [place] [phone] Ne dical nal 0[address] Branch [facility] 2021-01-26 2021-01-26 Emergency Jayjay Barnes [facility] 1.2.840 .114 [id number] Univers 06:01:00 10:17:00 Angle Paredes 350.1.13.10 ity of [place].2.[place] [phone] [facility] 084 [place] 2021-01-25 2021-01-25 Jackhammer 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 13.10 ity of [place] [id number] Ne dical claire [address] [facility] 2021-01-25 2021-01-25 Office Peter [facility] 1.2.840.114 [id number] Univers 09:09:06 10:22:16 Visit Ankita Victor 350.1.13.10 it[place] [id number] Ne dical nal [address] [facility] 2021-01-25 2021-01-25 Outpatient R [facility] [id number] Univers 08:00:00 08:00:00 ANKITA johnson [facility] 2021-01-21 2021-01-21 Office Shaka [facility] 1.2.840.114 [id number] Univers 10:02:57 10:53:23 Visit Bud Victor 350.1.13.10 it[place] [phone] [facility] 059 [facility] 2021-01-21 2021-01-21 Outpatient Rylie [facility] [id number] Univers 10:00:00 10:00:00 SENDIL alex [facility] 2021-01-09 2021-01-09 Outpatient Yan_W [facility] [id number] 021 [place] 10:53:00 10:53:00 0429 [facility] 2021-01-08 2021-01-08 [facility] 1.2.840.114 [id number] Univers 00:00:00 00:00:00 Ankita Victor 350.1.13.10 [place] [phone] Ne dical nal 044 [facility] 2020-12-25 2020-12-25 [facility]patient [facility] [id number] 021 [place] 11:19:00 11:19:00 0428 [facility] Group 2020-12-25 2020-12-25 Outpatient Yan_W MMG [facility] [id number] 021 [place] 11:19:00 11:19:00 0413 [facility] 2020-12-25 2020-12-25 Outpatient Yan[facility]W [facility] [id number] 021 [place] 11:19:00 11:19:00 0414 [facility] 2020-12-25 2020-12-25 Asa Panchal MM [place] - [id number] [place] 00:00:00 00:00:00 : Malick [facility] [address], [facility], Otolaryngol [place] lorrieAMANDEEP [address] , Ph. 2020-12-14 2020-12-14 Outpatient Yan_W [facility] [id number] 021 [place] 11:27:00 11:27:00 0402 [facility] 2020-12-06 2020-12-06 Refill Shaka, [facility] 1.2.840.114 [id number] Univers 00:00:00 00:00:00 Bud Victor 350.1.13.10 [place] [phone] Ne dical nal 9 [facility] 2020-11-30 2020-11-30 Refill Shaka [facility] 1.2.840.114 [id number] Univers 00:00:00 00:00:00 Bud Victor 350.1.13.10 [place] of [place] [phone] Ne dical nal 9 [facility] 2020-11-16 2020-11-16 Patient [facility] 1.2.840.114 [id number] Univers 00:00:00 00:00:00 Outreach Gino [facility] 350.1.13.10 i ty of [facility] 4.2.7.2.[place] [phone] Ne dical [address] [place] 2020-10-03 2020-10-03 [facility] 1.2.840.114 [id number] Univers 00:00:00 00:00:00 Ankita Victor 350.1.13.10 it[place] of [place] [phone] Ne dical nal 044 [facility] 2020-08-06 2020-08-06 Orders Doctor ELLIOTT 1.2.840.114 [id number] Univers 00:00:00 00:00:00 Only Unassigned, ROXIE 350.1.13.10 ity of [place] [facility] 4.2.7.2.686 [place] as [phone] [address] 2020-08-01 2020-08-01 Outpatient Yan_W MMG [facility] [id number] 020 [place] 02:43:00 02:43:00 1118 [facility] 2020-07-23 2020-07-23 Office [facility] 1.2.840.114 [id number] Univers 11:00:12 11:52:47 Visit Bud Victor 350.1.13.10 [place] of [place] [phone] Ne dicsc nal 059 [facility] 2020-07-23 2020-07-23 Out[facility] [id number] Univers 11:00:00 11:00:00 SENDIL ity of [facility] 2020-07-23 2020-07-[address] [facility] 1.2.840.114 [id number] Univers 00:00:00 00:00:00 Secure Msg Ankita Victor 350.1.13.10 [place] [phone] Ne dical nal 044 [facility] 2020-07-19 2020-07-19 Hospital [facility] 1.2.840.114 [id number] Univers 13:57:31 23:59:00 Encounter Ankita Victor 350.1.13.10 it[place] of [place] [phone] [facility] [address] [place] 2020-07-19 2020-07-19 Outpatient R [facility] [id number] Univers 00:00:00 00:00:00 ANKITA johnson of [facility] 2020-07-19 2020-07-19 Orders Doctor GALLAGHER 1.2.840.114 [id number] Univers 00:00:00 00:00:00 Only Unassigned, ROXIE 350.1.13.10 ity of [place] [facility] 4.2.7.2.686 [place] as [phone] [address] 2020-07-10 2020-07-10 Telephone [facility] 1.2.151.291 [id number] Univers 00:00:00 00:00:00 Sendrichard Victor 350.1.13.10 [place] [facility] [phone] Ne dicsc nal 059 [facility] 2020-07-04 2020-07-04 Orders Doctor GALLAGHER 1.2.840.114 [id number] Univers 00:00:00 00:00:00 Only Unassigned, ROXIE 350.1.13.10 ity of [place] [facility] 4.2.7.2.686 [place] [phone] [address] 2020-07-02 2020-07-02 Office [facility] 1.2.840.114 [id number] Univers 09:10:57 10:42:37 Visit Ankita Victor 350.1.13.10 [place] [phone] Ne dical nal 231 [facility] 2020-07-02 2020-07-02 Outpatient R [facility] [id number] Univers 10:20:00 10:20:00 ANKITA johnson of [facility] 2020-07-02 2020-07-02 Orders Doctor GALLAGHER 1.2.840.114 [id number] Univers 00:00:00 00:00:00 Only Unassigned, ROXIE 350.1.13.10 ity of [place] [facility] 4.2.7.2.686 [place] [phone] [address] 2020-07-01 2020-07-01 Refill Peter [facility] 1.2.840.114 [id number] Univers 00:00:00 00:00:00 Ankita A Simona 350.1.13.10 it[place] [phone] Ne dical nal 044 [facility] 2020-06-29 2020-06-29 Patient Peter [facility] 1.2.840.114 [id number] Univers 00:00:00 00:00:00 Secure Msg Ankita Victor 350.1.13.10 [place] [phone] [facility] 231 [facility] 2020-06-26 2020-06-26 Outpatient Yan_W [facility] [id number] 020 [place] 10:59:00 10:59:00 1013 [facility] 2020-06-26 2020-06-26 Asa Panchal [facility] [place] - [id number] 3 [place] 00:00:00 00:00:00 MD: Malick [facility] [address], [facility], Ot[place]ol [place] [facility] [place] [address] , Ph. 2020-06-18 2020-06-18 Outpatient R [facility] [id number] Univers 14:20:00 14:20:00 ity of [facility] 2020-06-18 2020-06-18 Nurse Nurse, [facility] 1.2.840.114 [id number] Univers 12:31:38 12:32:37 Visit Ankita Green [place] 350.1. 13.10 it[place] [phone] [facility] 044 [facility] 2020-06-18 2020-06-18 Telephone Shaka [facility] 1.2.625.728 [id number] [id number] Univers 00:00:00 00:00:00 Sendil PrinceFlorAlmas QuevedoBrogue 350.1.13.10 it[place] of [place] [phone] Ne dicsc nal 9 [facility] 2020-06-08 2020-06-08 [facility] 1.2.852.830 [id number] [id number] Univers 00:00:00 00:00:00 Sendil PrinceFlorAlmas QuevedoBrogue 350.1.13.10 [place] of [place] [phone] Ne dical nal 9 [facility] 2020-06-07 2020-06-07 [facility] 1.2.840.114 [id number] Univers 09:55:56 23:59:00 Encounter Sendrichard Quevedoton 350.1.13.10 it[place] of [place].2.[place] [phone] [address] 2020-06-07 2020-06-07 Outpatient [facility] [id number] Univers 10:00:00 10:00:00 SENDIL ity of [facility] 2020-06-07 2020-06-07 [facility] 1.2.840.114 [id number] Univers 09:54:46 09:54:46 Encounter Sendrichard Quevedoton 350.1.13.10 it[place] of [place].2.[place] [phone] [address] 2020-06-07 2020-06-07 [facility] 1.2.840.114 [id number] Univers 09:54:17 09:54:17 Encounter Sendil Alycia Quevedoton 350.1.13.10 it[place] of [place].2.[place] [phone] [address] 2020-06-07 2020-06-07 [facility] 1.2.840.114 [id number] Univers 09:53:45 09:53:45 Encounter Sendil Alycia Quevedoton 350.1.13.10 it[place] of [place] 4.[place].2.[place] [phone] [facility] 805 [place] 2020-06-07 2020-06-07 Orders Doctor ELLIOTT 1.2.840.114 [id number] Univers 00:00:00 00:00:00 Only Unassigned, ROXIE 350.1.13.10 ity of [place] [facility] 4.2.7.2.686 [place] [phone] [facility] 009 [place] 2020-06-04 2020-06-04 Telephone Peter [facility] 1.2.840.114 [id number] [facility] 00:00:00 00:00:00 Ankita Victor 350.1.13.10 it[place].2.[place] [phone] Ne dical nal 231 [facility] 2020-05-28 2020-05-31 Office Shaka [facility] 1.2.840.114 [id number] [facility] 10:50:51 22:51:23 Visit Bud Victor 350.1.13.10 it[place] of [place].2.[place] [phone] Ne dical nal 059 [facility] 2020-05-29 2020-05-31 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 10 it[place].2.[place] [phone] Ne dical nal 353 [facility] 2020-05-31 2020-05-31 Laboratory Pc, Adc Echo Room 1 - [facility] 1 .2.840.114 [id number] Univers 13:59:08 14:38:08 Only Bud Matt 350.1.13. 10 [place] 4.2.7.2.[place] [phone] Ne dical nal 059 [facility] 2020-05-31 2020-05-31 Outpatient R [facility] [id number] Univers 14:00:00 14:00:00 ity of [facility] 2020-05-31 2020-05-31 Refade [facility] 1.2.840.114 [id number] Univers 00:00:00 00:00:00 Sendil Alycia Victor 350.1.13.10 it[place].2.[place] [phone] Ne dical nal 059 [facility] 2020-05-30 2020-05-30 Nurse ELLIOTT Rodríguez 1.2.840.114 [id number] Univers 00:00:00 00:00:00 Triage Danielle Bernard ROXIE 350.1.13.10 i ty of [facility] 4.2.7.2.686 [place] [phone] [facility] 019 [place] 2020-05-29 2020-05-29 Out[facility] [id number] Univers 09:45:00 09:45:00 [facility] 2020-05-28 2020-05-28 Outpatient [facility] [id number] Univers 10:30:00 10:30:00 [facility] 2020-05-28 2020-05-28 Orders Doctor ELLIOTT 1.2.840.114 [id number] Univers 00:00:00 00:00:00 Only Unassigned, ROXIE 350.1.13.10 ity of [place] [facility] 4.2.7.2.686 [place] [phone] [facility] 00[address] [place] 2020-05-26 2020-05-26 [facility] 1.2.840.114 [id number] Univers 00:00:00 00:00:00 Royal Victor 350.1.13.10 i ty [place].2.[place] [phone] Ne dical nal 044 [facility] 2020-05-23 2020-05-23 Telephone Peter [facility] 1.2.840.114 [id number] Univers 00:00:00 00:00:00 Ankita Victor 350.1.13.10 it[place].2.[place] [phone] Me dical nal 231 [facility] 2020-05-14 2020-05-14 [place] [id number] 020 [place] 07:35:00 07:35:00 0831 [facility] 2020-05-14 2020-05-14 Asa Panchal MM[place] - [id number] 1 [place] 00:00:00 00:00:00 : [facility]ick [facility] [address], [facility], Otolaryngol [facility] [address] , Ph. 2020-05-03 2020-05-03 [place] [id number] 020 [place] 05:06:00 05:06:00 0820 [facility] 2020-05-03 2020-05-03 Outpatient Yan_W MMG MMG [id number] 020 [place] 05:06:00 05:06:00 0826 [facility] 2020-04-22 2020-04-[address] [facility] 1.2.840.114 [id number] Univers 00:00:00 00:00:00 Ankita Victor 350.1.13.10 [facility] 4.2.7.2.686 [place] [phone] [address] 2020-04-22 2020-04-[address] [facility] 1.2.840.114 773 [id number] 00:00:00 00:00:00 Ankita Victor 350.1.13.10 [place] 4.2.7.2.686 Professio [phone] [address] 2020-04-20 2020-04-20 Outpatient R [facility] [id number] Univers 08:00:00 08:00:00 ANKITA johnson [facility] 2020-04-19 2020-04-19 [place] [address]840.114 7 [id number] 00:00:00 00:00:00 Ankita Linares [facility] 350.1.13.10 [place] 4.2.7.2.686 Professio [phone] [address] 2020-04-19 2020-04-19 Telephone [facility] 1.2.840.114 7 [id number] Univers 00:00:00 00:00:00 Ankita [facility] 350.1.13.10 ity of [place] 4.2.7.2.686 [place] Professio [phone] [address] 2020-03-24 2020-03-24 Refill [place], [facility] 1.2.840.114 [id number] 00:00:00 00:00:00 Ankita A [place] 350.1.13.10 [place] 4.2.7.2.686 Professio [phone] [address] 2020-03-24 2020-03-24 [facility] 1.2.840.114 [id number] Univers 00:00:00 00:00:00 Ankita A [place] 350.1.13.10 it[place].2.[place] [phone] [address] 2020-03-14 2020-03-14 [facility] 1.2.840.114 7 [id number] 00:00:00 00:00:00 Ankita A [place] 350.1.13.10 [place] 4.2.7.2.686 Professio [phone] [address] 2020-03-14 2020-03-14 [place] [facility] 1.2.840.114 7 [id number] [facility] 00:00:00 00:00:00 Ankita A [place] 350.1.13.10 it[place] 4[place].2.[place] [phone] [address] 2020-03-09 2020-03-09 [facility] 1.2.840.114 [id number] 00:00:00 00:00:00 Ankita A [place] 350.1.13.10 [place] 4.2.7.2.686 Professio [phone] [address] 2020-03-09 2020-03-09 [facility] 1.2.840.114 [id number] Univers 00:00:00 00:00:00 Ankita A [place] 350.1.13.10 it[place] 4[place].2.[place] [phone] [address] 2020-01-19 2020-01-[address] [facility] 1.2.840.114 [id number] 08:01:12 10:10:54 ne Visit Ankita A [place] 350.1.13.10 [place] 4.2.7.2.686 Professio [phone] [address] 2020-01-19 2020-01-[address] [facility] 1.2.840.114 [id number] [facility] 08:01:12 10:10:54 ne Visit Ankita A [place] 350.1.13.10 it[place] 4.2.7.2.[place] [phone] [address] 2020-01-19 2020-01-19 Outpatient [facility] [id number] Univers 07:20:00 07:20:00 ANKITA johnson [facility] 2019-12-16 2019-12-16 [facility] 1.2.840.114 [id number] 00:00:00 00:00:00 Ankita A [place] 350.1.13.10 [place] 4.2.7.2.686 Professio [phone] [address] 2019-12-16 2019-12-[address] [facility] 1.2.840.114 [id number] Univers 00:00:00 00:00:00 Ankita A [place] 350.1.13.10 [place].2.[place] [phone] [address] 2019-12-11 2019-12-11 Outpatient Rylie CRUZ [facility] [id number] Univers 18:30:00 18:30:00 TIERA johnson o f [facility] 2019-11-23 2019-11-23 Refill Doctor [facility] 1.2.840.114 [id number] 00:00:00 00:00:00 Unassigned, [place] 350.1.13.10 [place] 4.2.7.2.686 Professio [phone] [address] 2019-11-23 2019-11-23 Refill Doctor [facility] 1.2.840.114 [id number] 00:00:00 00:00:00 Unassigned, [place] 350.1.13.10 [place] 4.2.7.2.686 Professio [phone] [address] 2019-11-23 2019-11-23 Refill Doctor [facility] 1.2.840.114 [id number] Univers 00:00:00 00:00:00 Unassigned, [place] 350.1.13.10 [place] 4.2.[place].2.[place] [phone] [address] 2019-11-23 2019-11-23 Refill Doctor [facility] 1.2.840.114 [id number] Univers 00:00:00 00:00:00 Unassigned, [place] 350.1.13.10 [place] 4.2.[place].2.[place] [phone] [address] 2019-11-18 2019-11-18 Outpatient R CHRISTIANNE [facility] [id number] [facility] 09:00:00 09:00:00 SERGEY johnson of [facility] 2019-11-18 2019-11-18 Office SHIRLEY Faust 1.2.317.435 [id number] 08:44:28 08:59:28 Visit Sergey KLEIN 350.1.13.10 [place] 4.2.7.2.686 [phone] [facility] 2019-11-18 2019-11-18 Office Christianne MISELENA 1.2.324.833 [id number] [facility] 08:44:28 08:59:28 Visit Sergey KLEIN 350.1.13.10 i ty of [place].2.[place] [phone] [facility] 144 [place] 2019-11-17 2019-11-[address] [facility] 1.2.840.114 7 [id number] 00:00:00 00:00:00 Ankita A [place] 350.1.13.10 [place] 4.2.7.2.686 Professio [phone] [facility] 231 [facility] 2019-11-17 2019-11-17 [facility] 1.2.840.114 7 [id number] Univers 00:00:00 00:00:00 Ankita A [place] 350.1.13.10 [place].2.[place] [phone] [facility] 044 [facility] 2019-11-17 2019-11-17 [facility] 1.2.840.114 7 [id number] Univers 00:00:00 00:00:00 Ankita A [place] 350.1.13.10 [place].2.[place] [phone] [facility] 231 [facility] 2019-11-10 2019-11-10 [facility] [id number] Univers 15:00:00 15:00:00 ANKITA ity [facility] 2019-11-07 2019-11-08 Emergency X [facility] ERT [id number] Univers 23:35:50 04:11:00 JAYJAY ity [facility] 2019-11-07 2019-11-08 Emergency Counts include 234 beds at the [facility] 1.2.009.772 [id number] Univers 23:35:50 04:11:00 Jayjay Craft [place] 350.1.13.10 ity of [place]2.7.2.[place] [phone] [facility] [address] [place] 2019-11-08 2019-11-08 [facility] 1.2.840.114 [id number] Univers 00:00:00 00:00:00 Ankita A [place] 350.1.13.10 it[place].2.[place] [phone] Ne dical nal 231 [facility] 2019-11-05 2019-11-06 Emergency Angle Paredes [facility] 1.2.840. 114 [id number] Univers 23:17:35 02:45:00 Angle Paredes 350.1.13.10 ity of [place] 4.2.7.2.[place] [phone] [facility] [address] [place] 2019-11-05 2019-11-06 Emergency [facility] [id number] Univers 23:17:35 02:45:00 ANGLE [facility] 2019-11-05 2019-11-06 Emergency X [facility] ERT [id number] Univers 23:17:35 02:45:[facility] 2019-11-05 2019-11-05 Orders Doctor ELLIOTT 1.2.840.114 [id number] Univers 00:00:00 00:00:00 Only Unassigned, ROXIE 350.1.13.10 ity of [place] [facility] 4.2.7.2.686 [place] [phone] [facility] [address] [place] 2019-08-15 2019-08-15 Outpatient Rylie HARO [facility] [id number] Univers 11:00:00 15:08:52 ANALI [facility] 2019-07-11 2019-07-11 Outpatient Rylie GREEN [facility] [id number] Univers 09:30:00 09:30:00 ANKITA johnson [facility] 2019-06-01 2019-06-01 [facility] 1.2.840.114 [id number] Univers 00:00:00 00:00:00 Ankita Victor 350.1.13.10 [place] [phone] Ne dicjolene nal 044 [facility] 2019-05-17 2019-05-17 Office [facility] 1.2.840.114 [id number] Univers 15:30:21 16:55:44 Visit Royal Victor 350.1.13.10 i ty of [place] 4[place]2.7.2.[place] [phone] Ne dical nal 044 [facility] 2019-05-17 2019-05-17 [facility] 1.2.840.114 [id number] Univers 00:00:00 00:00:00 Ankita Victor 350.1.13.10 [place] [phone] Ne dical nal 231 [facility] 2019-01-17 2019-01-17 Outpatient Rylie [facility] 1022 [id number] Univers 08:30:00 08:30:00 ANKITA johnson [facility] 2019-01-13 2019-01-13 Outpatient Rylie [facility] 1022 [id number] Univers 09:00:00 17:19:47 ANKITA [facility] Results Test Description Test Time Test Comments Results Result Comments Source POCT HEMOGLOBIN A1C TEST 2022-07-08 19:45:00 Test Item Value Reference Range Interpretation Comme nts POCT HBA1C (test code = 4548-4) 8.2 % 4-6 A Lab Interpretation (test code = 63719-4) Abnormal [facility] HEMOGLOBIN A1C [id number] 19:45:00 Test Item Value Reference Range Interpretation Comments POCT HBA1C (test code = 4548-4) 8.2 % 4-6 A Lab Interpretation (test code = Abnormal 44095-7) [facility] HEMOGLOBIN A1C [id number] 19:45:00 Test Item Value Reference Range Interpretation Comments POCT HBA1C (test code = 4548-4) 8.2 % 4-6 A Lab Interpretation (test code = Abnormal 61778-1) [facility] HEMOGLOBIN A1C [id number] 19:45:00 Test Item Value Reference Range Interpretation Comments POCT HBA1C (test code = 4548-4) 8.2 % 4-6 A Lab Interpretation (test code = Abnormal 13384-3) [facility] HEMOGLOBIN A1C [id number] 19:45:00 Test Item Value Reference Range Interpretation Comments POCT HBA1C (test code = 4548-4) 8.2 % 4-6 A Lab Interpretation (test code = Abnormal 27067-6) [facility]
--- NOTE | 2022-10-01 22:27 | RAD REPORT ---
EXAM DESCRIPTION: Arcenio Parker (2 Views)10/01/2022 10:21 pm CLINICAL HISTORY: Congestion COMPARISON: 2019 FINDINGS: The lungs appear clear of acute infiltrate. The heart is normal size IMPRESSION: No acute abnormalities displayed
[2022-10-01] MEDS ORDERED: ALBUTEROL 2.5 MG/3 ML NEB SOL ONE (23:09)
[2022-10-01 23:40] LABS: SARS-COV-2 RT PCR NEGATIVE (NEGATIVE)
[2022-10-02 00:22] LABS: Absolute Lymphocytes (CBC) 2.9 K/uL (0.7-4.9); Hematocrit 33.9 % (36.0-45.0); Lymphocytes % 33.6 % (15.3-44.8); MCV 94.7 fL (80-100); RBC Red Blood Cell Count 3.58 M/uL (3.86-4.86)
[2022-10-02 00:33] LABS: Magnesium 2.5 mg/dL (1.6-2.4); Potassium 4.3 mmol/L (3.5-5.1)
[2022-10-02 00:35] LABS: Troponin High Sensitivity 93.5 pg/mL (<58.9)
--- NOTE | 2022-10-02 00:49 | EDPHYS ---
Physician Documentation [facility] Name: Nathalia Brady Age: 72 yrs Sex: Female : 1950 Arrival Date: 10/01/2022 Time: 20:50 Bed 13 Private MD: ED Physician Gavin Cruz HPI: 10/01 23:02 This 72 yrs old Female presents to ER via Ambulatory with complaints of Cough, snw Breathing Difficulty, Wheezing > 1 Year, Congestion. 23:02 The patient or guardian reports flu symptoms, myalgias, no appetite. Onset: The snw symptoms/episode began/occurred suddenly. Severity of symptoms: At their worst the symptoms were moderate. Modifying factors: The symptoms are alleviated by nothing. Associated signs and symptoms: Pertinent positives: "vertigo", burping a lot, similar to s/s prior to cardiac stents. The patient has experienced a previous episode. The patient has not recently seen a physician. 10/02 00:37 Onset: acutely. The pain does not radiate. Associated signs and symptoms: Pertinent snw positives: lightheadedness, near-syncope, vomiting. Duration: The patient or guardian reports multiple episodes. Historical: - Home Meds: 10/01 21:35 atorvastatin 80 mg Oral tab 1 tab once daily [Active]; Metformin Oral [Active]; kd3 - PMHx: 21:35 Diabetes - IDDM; Hyperlipidemia; Hypertension; Myocardial infarction; kd3 - PSHx: 21:35 Cholecystectomy; stents; kd3 - Immunization history:: Adult Immunizations up to date. - Social history:: Smoking status: Patient denies any tobacco usage or history of. ROS: 23:04 Eyes: Negative for injury, pain, redness, and discharge, ENT: Negative for injury, snw pain, and discharge, Neck: Negative for injury, pain, and swelling, Cardiovascular: Negative for chest pain, palpitations, and edema. 23:04 Back: Negative for injury and pain, : Negative for injury, bleeding, discharge, and swelling. 23:04 Skin: Negative for injury, rash, and discoloration. 23:04 Constitutional: Positive for body aches, fatigue, malaise, poor PO intake. 23:04 Respiratory: Positive for cough, with yellow sputum. 23:04 Abdomen/GI: Positive for nausea and vomiting. 23:04 MS/extremity: Positive for heaviness/weakness. 23:04 Neuro: Positive for dizziness. Exam: 23:05 Constitutional: This is a well developed, well nourished patient who is awake, alert, snw and in no acute distress. Head/Face: Normocephalic, atraumatic. Eyes: Pupils equal round and reactive to light, extra-ocular motions intact. Lids and lashes normal. Conjunctiva and sclera are non-icteric and not injected. Cornea within normal limits. Periorbital areas with no swelling, redness, or edema. ENT: Nares patent. No nasal discharge, no septal abnormalities noted. Tympanic membranes are normal and external auditory canals are clear. Oropharynx with no redness, swelling, or masses, exudates, or evidence of obstruction, uvula midline. Mucous membranes moist. Neck: Trachea midline, no thyromegaly or masses palpated, and no cervical lymphadenopathy. Supple, full range of motion without nuchal rigidity, or vertebral point tenderness. No Meningismus. Chest/axilla: Normal chest wall appearance and motion. Nontender with no deformity. No lesions are appreciated. Cardiovascular: Regular rate and rhythm with a normal S1 and S2. No gallops, murmurs, or rubs. Normal PMI, no JVD. No pulse deficits. 23:05 Abdomen/GI: Soft, non-tender, with normal bowel sounds. No distension or tympany. No guarding or rebound. No evidence of tenderness throughout. Back: No spinal tenderness. No costovertebral tenderness. Full range of motion. Skin: Warm, dry with normal turgor. Normal color with no rashes, no lesions, and no evidence of cellulitis. MS/ Extremity: Pulses equal, no cyanosis. Neurovascular intact. Full, normal range of motion. Neuro: Awake and alert, GCS 15, oriented to person, place, time, and situation. Cranial nerves II-XII grossly intact. Motor strength 5/5 in all extremities. Sensory grossly intact. Cerebellar exam normal. Normal gait. Psych: Awake, alert, with orientation to person, place and time. Behavior, mood, and affect are within normal limits. 23:05 Respiratory: the patient does not display signs of respiratory distress, Respirations: normal, Breath sounds: wheezing: expiratory Vital Signs: 21:31 BP 151 / 71; Pulse 73; Resp 19; Temp 98.6(O); Pulse Ox 99% ; Weight 81.65 kg; Height 5 kd3 ft. 3 in. (160.02 cm); Pain 0/10; 22:45 BP 156 / 50; Pulse 64; Resp 15; Pulse Ox 99% on R/A; eh3 23:45 BP 189 / 61; Pulse 68; Resp 19; Pulse Ox 100% on Nebulizer Mask; eh3 21:31 Body Mass Index 31.89 (81.65 kg, 160.02 cm) kd3 MDM: 21:45 Patient medically screened. snw 23:03 Differential Diagnosis: Obstructed Airway Upper Respiratory Infection Pharyngitis Viral snw Syndrome Pneumonia. Data reviewed: vital signs, nurses notes. Historians other than the Patient: Daughter/Son: . Care significantly affected by the following chronic conditions: Diabetes, Hypertension. Counseling: I had a detailed discussion with the patient and/or guardian regarding: the historical points, exam findings, and any diagnostic results supporting the discharge/admit diagnosis, the presence of at least one elevated blood pressure reading (>120/80) during this emergency department visit, lab results, radiology results. 10/02 00:37 HEART Score: History: Slightly Suspicious (0), ECG: Normal (0), Age: > or = 65 years snw (2), Risk Factors: > or = 3 Risk factors for atherosclerotic disease (2), [Hypercholesterolemia] [Hypertension] [DM] Troponin: > 1 and < 3 x normal limit (1), Total Score = 5. The patient was given aspirin in the Emergency Department. 00:46 Counseling: I had a detailed discussion with the patient and/or guardian regarding: the snw need for further work-up and treatment in the hospital, Spoke with Alan Suh NP for admission. . Response to treatment: the patient's symptoms have mildly improved after treatment. 10/01 21:53 Order name: COVID-19/FLU A+B; Complete Time: 23:40 snw 10/01 22:49 Order name: Basic Metabolic Panel; Complete Time: :16 snw 10/01 22:49 Order name: CBC with Diff; Complete Time: 00:23 snw 10/01 22:49 Order name: Magnesium; Complete Time: :16 snw 10/01 22:49 Order name: Troponin HS; Complete Time: :16 snw 10/02 00:45 Order name: DD; Complete Time: :19 la1 10/02 01:00 Order name: NT PRO-BNP; Complete Time: 01:16 EDMS 10/02 07:21 Order name: Hemoglobin A1c; Complete Time: 20:06 EDMS 10/02 07:25 Order name: Basic Metabolic Panel; Complete Time: 20:06 EDMS 10/02 07:25 Order name: Troponin High Sensitivity; Complete Time: 20:06 EDMS 10/02 07:25 Order name: T4 Free; Complete Time: 20:06 EDMS 10/02 07:25 Order name: Thyroid Stimulating Hormone; Complete Time: 20:06 EDMS 10/02 07:26 Order name: Glucose, Ancillary Testing; Complete Time: 20:06 EDMS 10/01 21:53 Order name: Chest Pa And Lat (2 Views) XRAY; Complete Time: 22:28 snw 10/01 22:49 Order name: EKG; Complete Time: 22:50 snw 10/01 22:49 Order name: Cardiac monitoring; Complete Time: 23:01 snw 10/01 22:49 Order name: EKG - Nurse/Tech; Complete Time: 23:29 snw 10/01 22:49 Order name: IV Saline Lock; Complete Time: 23:48 snw 10/01 22:49 Order name: Labs collected and sent; Complete Time: 23:48 snw 10/01 22:49 Order name: O2 Per Protocol; Complete Time: 23:01 snw 10/01 22:49 Order name: O2 Sat Monitoring; Complete Time: 23:01 snw 10/02 11:35 Order name: Troponin High Sensitivity; Complete Time: 20:06 EDMS 10/02 11:42 Order name: Glucose, Ancillary Testing; Complete Time: 20:06 EDMS EC/18 23:21 Rate is 63 beats/min. Rhythm is regular. QRS [place] is Normal. GA interval is normal. QRS snw interval is normal. Clinical impression: Normal ECG. Administered Medications: 23:48 Drug: Albuterol 2.5 mg Route: Inhalation; eh3 10/02 01:08 Drug: Aspirin Chewable Tablet 324 mg Route: PO; tw5 01:11 Drug: Insulin Regular Human 5 units {Co-Signature: tw5 (Megha Watson).} Route: IVP; jb4 Site: left hand; Disposition Summary: 10/02/22 00:49 Hospitalization Ordered Hospitalization Status: Observation snw Provider: Porfirio Flanagan snreyes Condition: Stable snw Problem: new snw Symptoms: are unchanged snw Bed/Room Type: Standard snw Location: [facility] ER HOLD(10/02/22 13:10) Room Assignment: ERHOLD-(10/02/22 13:10) ss Diagnosis - Syncope Near snw - Cardiac arrhythmia, unspecified snw - Elevated troponin snw Forms: - Medication Reconciliation Form snw - SBAR form snw Signatures: Dispatcher [employer] EDMS Cathi Frazier RN RN mw Wen Giraldo, RN BONE MARROW TRANSPLANT-C RN BONE MARROW TRANSPLANT-Csnw Shantel Shell RN RN Tre Suh, RN BONE MARROW TRANSPLANT-C RN BONE MARROW TRANSPLANT-Cla1 Holland Bullock, RN RN jb4 Ed Rodriguez RN RN Megha Dutton tw5 Haylee Joe RN RN kd3 Amisha Martinez RN RN 3 Megha Watson tw5 Corrections: (The following items were deleted from the chart) 10/01 21:39 21:35 PMHx: Diabetes - NIDDM; kd3 kd3 10/02 01:00 00:52 PROBNP+C.LAB.BRZ ordered. EDNJ EDNJ 01:53 00:49 Telemetry/MedSurg (observation) snw mw 01:53 00:49 snw mw 10:31 01:53 [facility] ER HOLD mw ja1 10:31 01:53 ERHOLD- mw ja1 13:10 10:31 Telemetry/MedSurg (observation) ja1 ss 13:10 10:31 427 ja1 ss 13:10 13:10 [facility]
--- NOTE | 2022-10-02 00:49 | ER ---
Nurse's Notes [facility] Name: Nathalia Brady Age: 72 yrs Sex: Female : 1950 Arrival Date: 10/01/2022 Time: 20:50 Bed 13 Private MD: Diagnosis: Syncope Near;Cardiac arrhythmia, unspecified;Elevated troponin Presentation: 10/01 21:31 Chief complaint: Patient states: My symptoms have started since of last week. kd3 I woke up dizzy and nauseous. The next day I had some chill and then I started getting a cough. I can feel mucus in my throat but it wont come out. The mucus that dies come out is green. Coronavirus screen: Vaccine status: Patient reports being unvaccinated. Ebola Screen: No symptoms or risks identified at this time. Initial Sepsis Screen: Does the patient meet any 2 criteria? No. Patient's initial sepsis screen is negative. Does the patient have a suspected source of infection? No. Patient's initial sepsis screen is negative. Risk Assessment: Do you want to hurt yourself or someone else? Patient reports no desire to harm self or others. Onset of symptoms was October 01, 2022. 21:31 Method Of Arrival: Ambulatory kd3 21:31 Acuity: CALI 4 kd3 Triage Assessment: 21:35 General: Appears in no apparent distress. Behavior is calm, cooperative. Pain: Denies kd3 pain. Respiratory: Reports shortness of breath Onset: The symptoms/episode began/occurred yesterday, the patient has mild shortness of breath. Historical: - Home Meds: 21:35 atorvastatin 80 mg Oral tab 1 tab once daily [Active]; Metformin Oral [Active]; kd3 - PMHx: 21:35 Diabetes - IDDM; Hyperlipidemia; Hypertension; Myocardial infarction; kd3 - PSHx: 21:35 Cholecystectomy; stents; kd3 - Immunization history:: Adult Immunizations up to date. - Social history:: Smoking status: Patient denies any tobacco usage or history of. Screenin:00 [facility] ED Fall Risk Assessment (Adult) History of falling in the last 3 months, eh3 including since admission No falls in past 3 months (0 pts) Confusion or Disorientation No (0 pts) Intoxicated or Sedated No (0 pts) Impaired Gait No (0 pts) Mobility Assist Device Used No (0 pt) Altered Elimination No (0 pt) Score/Fall Risk Level 0 - 2 = Low Risk. Abuse screen: Denies threats or abuse. Denies injuries from another. Nutritional screening: No deficits noted. Tuberculosis screening: No symptoms or risk factors identified. Assessment: 22:00 General: Appears in no apparent distress. uncomfortable, Behavior is calm, cooperative, eh3 appropriate for age. Neuro: Level of Consciousness is awake, alert, obeys commands, Oriented to person, place, time, situation. Cardiovascular: Capillary refill < 3 seconds Patient's skin is warm and dry. Rhythm is sinus rhythm. Respiratory: Airway is patent Respiratory effort is even, unlabored, Respiratory pattern is regular, symmetrical, Breath sounds are coarse bilaterally. GI: No signs and/or symptoms were reported involving the gastrointestinal system. Abdomen is round non-distended. : No signs and/or symptoms were reported regarding the genitourinary system. EENT: No signs and/or symptoms were reported regarding the EENT system. Derm: No signs and/or symptoms reported regarding the dermatologic system. Skin is pink, warm \T\ dry. Musculoskeletal: No signs and/or symptoms reported regarding the musculoskeletal system. Circulation, motion, and sensation intact. Range of motion: intact in all extremities. 23:00 Reassessment: Patient appears in no apparent distress at this time. Patient and/or eh3 family updated on plan of care and expected duration. Pain level reassessed. Patient is alert, oriented x 3, equal unlabored respirations, skin warm/dry/pink. Vital Signs: 21:31 BP 151 / 71; Pulse 73; Resp 19; Temp 98.6(O); Pulse Ox 99% ; Weight 81.65 kg; Height 5 kd3 ft. 3 in. (160.02 cm); Pain 0/10; 22:45 BP 156 / 50; Pulse 64; Resp 15; Pulse Ox 99% on R/A; eh3 23:45 BP 189 / 61; Pulse 68; Resp 19; Pulse Ox 100% on Nebulizer Mask; eh3 21:31 Body Mass Index 31.89 (81.65 kg, 160.02 cm) kd3 ED Course: 20:50 Patient arrived in ED. ja2 20:53 Wen [facility]iral[facility]C [facility] snw 20:53 Gavin Cruz MD is Attending Physician. snw 21:35 Triage completed. kd3 21:35 Arm band placed on right wrist. kd3 22:00 Patient has correct armband on for positive identification. Bed in low position. Call eh3 light in reach. Side rails up X2. Adult w/ patient. Client placed on continuous cardiac and pulse oximetry monitoring. NIBP monitoring applied. Door closed. Noise minimized. Warm blanket given. 22:14 Amisha Martinez, RN is Primary Nurse. eh3 22:22 Chest Pa And Lat (2 Views) XRAY In Process Unspecified. EDMS 22:43 COVID-19/FLU A+B Sent. eh3 23:23 Missed attempt(s): 20 gauge in right antecubital area. Bleeding controlled, band aid eh3 applied, catheter tip intact. 23:44 Inserted saline lock: 22 gauge in left hand, using aseptic technique. tw5 10/02 00:08 No provider procedures requiring assistance completed. Lab(s) recollected, by me, sent tw5 to lab. 00:47 Porfirio Flanagan MD is Hospitalizing Provider. snw 01:08 DD Sent. tw5 01:08 NT PRO-BNP Sent. tw5 13:37 IV discontinued, intact, bleeding controlled, No redness/swelling at site. Pressure eh3 dressing applied. Administered Medications: 10/01 23:48 Drug: Albuterol 2.5 mg Route: Inhalation; eh3 10/02 01:08 Drug: Aspirin Chewable Tablet 324 mg Route: PO; tw5 01:11 Drug: Insulin Regular Human 5 units {Co-Signature: (Megha Watson).} Route: IVP; jb4 Site: left hand; Medication: 13:37 VIS not applicable for this client. eh3 Outcome: 00:49 Decision to Hospitalize by Provider. snw 13:37 Discharged to home ambulatory, with family. eh3 13:37 Condition: stable 13:37 Discharge instructions given to patient, family, Instructed on discharge instructions, follow up and referral plans. medication usage, Demonstrated understanding of instructions, follow-up care, medications, Prescriptions given X 2. 13:38 Patient left the ED. eh3 Signatures: Dispatcher [employer] EDMS Wen Giraldo, WEAVING MACHINE OPERATOR-C WEAVING MACHINE OPERATOR-Csnw Holland Bullock, CLAUDETTE RN jb4 Norma Ulloa, Megha tw5 Haylee Joe RN RN kd3 Amisha Martinez RN RN 3 Megha Watson tw5 Corrections: (The following items were deleted from the chart) 10/01 21:39 21:35 PMHx: Diabetes - NIDDM; kd3 kd3 23:49 23:30 BP 156 / 65; Pulse 62bpm; Resp 16bpm; Pulse Ox 99% RA; 3 3 23:56 23:00 BP 156 / 65; Pulse 62bpm; Resp 16bpm; Pulse Ox 99% RA; 3 3
[2022-10-02] MEDS ORDERED: INSULIN -REGULAR HUMAN 50 UNIT/0.5 ML ML ONE ×3 (00:56→11:37)
[2022-10-02] MEDS ORDERED: ASPIRIN 81 MG CHEWABLE TABLET ONE (00:57)
[2022-10-02] MEDS ORDERED: ONDANSETRON 4 MG/2 ML VIAL IV PRN (01:08)
--- NOTE | 2022-10-02 01:19 | P.HP ---
Certification for Inpatient Patient admitted to: Observation With expected LOS: <2 Midnights Patient will require the following post-hospital care: None Practitioner: I am a practitioner with admitting privileges, knowledge of patient current condition, hospital course, and medical plan of care. Services: Services provided to patient in accordance with Admission requirements found in Title 42 Section 412.3 of the Code of Federal Regulations <Tre Suh - Last Filed: 10/02/22 01:17> Patient History Date of Service: 10/02/22 Reason for admission: ACS rule out History of Present Illness: 72-year-old female with history of [id number] diabetes, CAD, hypertension, hyperlipidemia presents the emergency department for nonproductive cough, dyspnea on exertion, intermittent chest tightness. She reports her symptoms have been going on over the course last 1 week. Her labs were significant for an initial high-sensitivity troponin of 93.5, BNP 203 chest x- ray unremarkable, D-dimer now ordered and pending. She was also significantly hyperglycemic with a blood sugar of 365. She reports Takes metformin at home. ED provider wishes to admit under observation for ACS rule out. - Past Medical/Surgical History Diabetic: Yes -: DM -: HTN -: high cholesterol -: CAD -: CECI -: heart stent Psychosocial/ Personal History: Patient was at home with family - Family History Father -: Diabetes Mother -: Diabetes - Social History Smoking Status: Never smoker Alcohol use: No CD- Drugs: No Caffeine use: Yes Place of Residence: Home <Tre Suh - Last Filed: 10/02/22 01:17> Date of Service: 10/02/22 <Porfirio Flanagan - Last Filed: 10/02/22 13:03> Allergies morphine Allergy (Verified 12/11/18 15:18) Anaphylaxis Home Medications: Atorvastatin Calcium [Lipitor] 1 tab PO DAILY 12/16/16 Clopidogrel Bisulfate [Plavix] 1 tab PO DAILY 12/16/16 Metformin HCl [Metformin ER Osmotic] 2 tab PO BID 12/16/16 Metoprolol Tartrate [Lopressor*] 1 tab PO BID 12/16/16 Pantoprazole [Protonix Tab*] 40 mg PO DAILY 12/11/18 Albuterol Neb [Proventil 0.083% Neb Soln] 2.5 mg IH Q6HP PRN #120 ml 10/02/22 Benzonatate [Tessalon Perle*] 100 mg PO TID PRN 7 Days #20 cap 10/02/22 Review of Systems 10-point ROS is otherwise unremarkable Respiratory: Cough, SOB with Excertion Cardiovascular: Chest Pain <Tre Suh - Last Filed: 10/02/22 01:17> Physical Examination - Physical Exam General: Alert, In no apparent distress, Oriented x3 HEENT: Atraumatic, PERRLA, Mucous membr. moist/pink, EOMI, Sclerae nonicteric Neck: Supple, 2+ carotid pulse no bruit, No LAD, Without JVD or thyroid abnormality Respiratory: Clear to auscultation bilaterally, Normal air movement Cardiovascular: Regular rate/rhythm, Normal S1 S2 Capillary refill: <2 Seconds Gastrointestinal: Normal bowel sounds, No tenderness Musculoskeletal: No tenderness Integumentary: No rashes Neurological: Normal speech, Normal strength at 5/5 x4 extr, Normal tone, Normal affect - Studies Laboratory Data (last 24 hrs) 10/01/22 23:57: WBC 8.60, Hgb 11.6 L, Hct 33.9 L, Plt Count 252 10/01/22 23:57: Sodium 136, Potassium 4.3, BUN 24 H, Creatinine 1.14 H, Glucose 365 H, Magnesium 2.5 H <Tre Suh - Last Filed: 10/02/22 01:17> - Studies Laboratory Data (last 24 hrs) 10/01/22 23:57: WBC 8.60, Hgb 11.6 L, Hct 33.9 L, Plt Count 252 10/01/22 23:57: Sodium 136, Potassium 4.3, BUN 24 H, Creatinine 1.14 H, Glucose 365 H, Magnesium 2.5 H <Porfirio Flanagan - Last Filed: 10/02/22 13:03> Assessment and Plan - Plan Assessment: Chest pain rule out ACShistory of CAD Diabetes mellitus type [id number] with hyperglycemia Hypertension Hyperlipidemia Plan: Chest pain rule out ACShistory of CAD: Trend troponin, monitor on telemetry, cardiology consulted, echocardiogram ordered. She received aspirin in ED, aspirin, metoprolol, statin ordered. Diabetes mellitus type [id number] with hyperglycemia: A1c in the morning, sliding scale insulin ordered. Hypertension: Continue medications, initiated on beta-richi therapy. Hyperlipidemia: Continue statin. DVT PPX: Lovenox Code status: Full Discharge Plan: Home Plan to discharge in: 24 Hours - Advance Directives Does patient have a Living Will: No Does patient have a Durable POA for Healthcare: No - Code Status/Comfort Care Code Status Assessed: Yes (Full code) Critical Care: No Time Spent Managing Pts Care (In Minutes): 55 <Tre Suh - Last Filed: 10/02/22 01:17> Physician Review: Patient Assessed, Agree with Above Assessment and Plan <Porfirio Flanagan - Last Filed: 10/02/22 13:03>
[2022-10-02 04:39] VITALS: TEMP 97
[2022-10-02 04:40] VITALS: BMI 31.8
[2022-10-02] MEDS ORDERED: METOPROLOL TAR 25 MG TAB PO SCH (06:00)
[2022-10-02] MEDS ORDERED: METOPROLOL TAR 25 MG TAB ONE (06:17)
[2022-10-02 06:52] VITALS: O2SAT 100
[2022-10-02 07:24] LABS: Thyroid Stimulating Hormone 1.87 uIU/mL (0.358-3.740); Troponin High Sensitivity 87.7 pg/mL (<58.9)
[2022-10-02] MEDS: INSULIN -REGULAR HUMAN 50 UNIT/0.5 ML ML SQ SCH ×2 (07:30→11:30)
[2022-10-02] MEDS ORDERED: PNEUMOCOCCAL VACCINE 0.5 ML IMVAC ONE (08:00)
[2022-10-02] MEDS ORDERED: INFLUENZA VACCINE (for 6+ mo) 0.5 ML DOSE IMVAC ONE (08:00)
[2022-10-02] MEDS ORDERED: ASPIRIN EC 81 MG TAB PO ONE (08:29)
[2022-10-02] MEDS ORDERED: ENOXAPARIN 40 MG/0.4 ML SQ ONE (08:30)
[2022-10-02] MEDS ORDERED: ASPIRIN EC 81 MG TAB PO SCH (09:00)
[2022-10-02] MEDS ORDERED: ENOXAPARIN 40 MG/0.4 ML SQ SCH (09:00)
[2022-10-02 09:17] VITALS: BP 160/72
--- NOTE | 2022-10-02 12:54 | P.DS ---
Admission Date: 10/02/22 Discharge Date: 10/02/22 Disposition: ROUTINE DISCHARGE Discharge Condition: GOOD Reason for Admission: ACS rule out Consultations: 1. Cardiology Hospital Course: DIAGNOSES: # Suspect Viral Upper Respiratory Infection # Coronary Artery Disease # Hyperglycemia in Type II Diabetes Mellitus # Hypertension # Hyperlipidemia # Obesity - BMI 31.9 kg/m2 HOSPITAL COURSE: Ms. Nathalia Brady is a pleasant 72-year-old female with a past medical history significant for coronary artery disease, type 2 diabetes mellitus, hypertension, and hyperlipidemia who was admitted to the [facility] on 10/02/2022 for a dry cough with post-tussive chest pain. She was admitted to the Medicine service. Upon further evaluation, her EKG was reportedly without STEMI criteria. Her D-dimer was 497. Her NT Pro-BNP was 203. Her serial troponin trend was 93.5 -> 87.7 -> 99.0. Her chest x-ray revealed, "no acute abnormalities displayed." She was given albuterol, with complete resolution of her symptoms. Cardiology was consulted and she was evaluated by Dr. Payan. He has cleared her for discharge home and advised outpatient foll ow-up with her Certified Public Accountant (Dr. Garsia). This morning, she is symptom free and would like to be discharged home. On 10/02/2022, she was seen on rounds and deemed medically stable for discharge. She was discharged with instructions to schedule follow-up appointments with her PCP (Dr. Ledesma) and with her Certified Public Accountant (Dr. Garsia). She was provided prescriptions for albuterol and benzonatate. She and her family members were given the opportunity to ask questions and reported no further questions. Furthermore, all questions were answered to the best of my ability. A copy of this discharge summary will be sent to the above providers to facilitate continuity of care. Today, I personally spent 25 minutes on her case, of which greater than 50% of the time was spent in patient education, counseling, and coordination of care as described above. Vital Signs/Physical Exam: Temp Pulse Resp BP Pulse Ox 97.0 F 58 17 160/72 H 99 10/02/22 04:00 10/02/22 08:00 10/02/22 08:00 10/02/22 08:00 10/02/22 04:00 General: Alert, In no apparent distress, Oriented x3 HEENT: Atraumatic, Mucous membr. moist/pink, EOMI, Sclerae nonicteric Neck: JVD not distended Respiratory: Clear to auscultation bilaterally, Normal air movement Cardiovascular: No edema, Regular rate/rhythm, Normal S1 S2 Gastrointestinal: Soft and benign, Non-distended, No tenderness Musculoskeletal: No clubbing Integumentary: No rashes Neurological: Normal speech, Normal affect Laboratory Data at Discharge: WBC 8.60 K/uL (4.3-10.9) 10/01/22 23:57 Hgb 11.6 g/dL (12.0-15.0) L 10/01/22 23:57 Hct 33.9 % (36.0-45.0) L 10/01/22 23:57 Plt Count 252 K/uL (152-406) 10/01/22 23:57 Sodium 140 mmol/L (136-145) 10/02/22 06:42 Potassium 4.0 mmol/L (3.5-5.1) 10/02/22 06:42 BUN 21 mg/dL (7-18) H 10/02/22 06:42 Creatinine 0.87 mg/dL (0.55-1.02) 10/02/22 06:42 Glucose 213 mg/dL (74-106) H 10/02/22 06:42 Magnesium 2.5 mg/dL (1.6-2.4) H 10/01/22 23:57 Home Medications: Atorvastatin Calcium [Lipitor] 1 tab PO DAILY 12/16/16 Clopidogrel Bisulfate [Plavix] 1 tab PO DAILY 12/16/16 Metformin HCl [Metformin ER Osmotic] 2 tab PO BID 12/16/16 Metoprolol Tartrate [Lopressor*] 1 tab PO BID 12/16/16 Pantoprazole [Protonix Tab*] 40 mg PO DAILY 12/11/18 Albuterol Neb [Proventil 0.083% Neb Soln] 2.5 mg IH Q6HP PRN #120 ml 10/02/22 Benzonatate [Tessalon Perle*] 100 mg PO TID PRN 7 Days #20 cap 10/02/22 New Medications: Albuterol Neb [Proventil 0.083% Neb Soln] 2.5 mg IH Q6HP PRN #120 ml PRN Reason: Shortness Of Breath Benzonatate [Tessalon Perle*] 100 mg PO TID PRN 7 Days #20 cap PRN Reason: Cough Physician Discharge Instructions: 1. Please call and schedule a follow-up appointment with your PCP (Dr. Ledesma) in 3-5 days 2. Please call and schedule a follow-up appointment with your Certified Public Accountant (Dr. Garsia) in 5-7 days Diet: AHA Activity: Ad yamileth Followup: Bryce Garsia MD [OUTSIDE PHYSICIAN] - Time spent managing pt's care (in minutes): 25
--- NOTE | 2022-10-02 15:31 | EKG ---
Test Date: 2022-10-01 Test Time: 23:11:39 Resource Conservation Manager: AKIL MEASUREMENT RESULTS: Intervals: Rate: 63 SD: 138 QRSD: 74 QT: 420 QTc: 429 [place]: P: 60 SD: 138 QRS: 13 T: 86 INTERPRETIVE STATEMENTS: Normal sinus rhythm Normal ECG Compared to ECG 12/11/2018 11:10:37 Sinus bradycardia no longer present Left ventricular hypertrophy no longer present Electronically Signed On 10-02-22 15:30:23 [employer] by Deon Montes
[2022-10-02] MEDS ORDERED: ATORVASTATIN 10 MG TAB PO SCH (21:00)
--- NOTE | 2022-10-03 07:00 | ECHO ---
HEIGHT: 5 ft 3 in WEIGHT: 180 lb 0.119 oz DATE OF STUDY: 10/02/[address]: Tre Suh NP 2-DIMENSIONAL: YES M.MODE: YES DOPPLER: YES COLOR FLOW: YES TDS: PORTABLE: YES DEFINITY: BUBBLE STUDY: DIAGNOSIS: DYSPNEA ON EXER CARDIAC HISTORY: CATHERIZATION: YES SURGERY: NO PROSTHETIC VALVE: NO PACEMAKER: NO MEASUREMENTS (cm) DIASTOLIC (NORMALS) SYSTOLIC (NORMALS) IVSd 1.1 (0.6-1.2) LA Diam 3.2 (1.9-4.0) LVEF 68% LVIDd 4.7 (3.5-5.7) LVIDs 2.9 (2.0-3.5) %FS 38% LVPWd 1.1 (0.6-1.2) Ao Diam 2.8 (2.0-3.7) 2 DIMENSIONAL ASSESSMENT: RIGHT ATRIUM: NORMAL LEFT ATRIUM: NORMAL RIGHT VENTRICLE: NORMAL LEFT VENTRICLE: NORMAL TRICUSPID VALVE: MILD TRICUSPID REGURGITATION MITRAL VALVE: MILD MITRAL REGURGITATION PULMONIC VALVE: NORMAL AORTIC VALVE: MILD AORTIC INSUFFICIENCY PERICARDIAL EFFUSION: NONE AORTIC ROOT: NORMAL LEFT VENTRICULAR WALL MOTION: NORMAL DOPPLER/COLOR FLOW: SEE BELOW COMMENTS: 1. NORMAL LEFT VENTRICULAR EJECTION FRACTION 55-60% 2. NORMAL WALL MOTION 3. MODERATE DIASTOLIC DYSFUNCTION 4. MILD AORTIC INSUFFICIENCY, TRICUSPID REGURGITATION, MITRAL REGURGITATION TECHNOLOGIST: ANGELO STAPLETON
== END 2022-10-02 13:38 | disposition home or self-care (01) ==
LOC: ER 20:48 → ERHOLD 10-02 01:07 → 4TH 10-02 11:49 → ERHOLD 10-02 11:49
PROVIDERS: ADMIT Internal Medicine; ATTEND Internal Medicine
DX: R07.9 Chest pain, unspecified (principal); I25.10 Atherosclerotic heart disease of native coronary artery without angina pectoris; E11.65 Type 2 diabetes mellitus with hyperglycemia; I10 Essential (primary) hypertension; E78.5 Hyperlipidemia, unspecified; E66.9 Obesity, unspecified; Z68.31 Body mass index [BMI] 31.0-31.9, adult; Z20.822 Contact with and (suspected) exposure to COVID-19; Z23 Encounter for immunization
CPT/HCPCS: 93005; 93306; 85025; 80048 ×2; 36415; 83735; 82947 ×2; 85379; 84443; 83036; 84484 ×3; 84439; 83880; 0240U; 71046; 96374; 99285; J1815 ×3; J7613; J1650; G0378 ×2

== ENCOUNTER 2024-09-15 11:58 | Emergency (ER) | payer OTHER ==
[2024-09-15] MEDS ORDERED: SMZ./TMP. 800/160 MG TABLET ONE (12:54)
[2024-09-15] MEDS ORDERED: SILVER SULFADIAZINE 1% 25 GM TOP ONE (12:55)
--- NOTE | 2024-09-15 13:18 | EDPHYS ---
Physician Documentation [facility] Name: Nathalia Brady Age: 74 yrs Sex: Female : 1950 Arrival Date: 09/15/2024 Time: 11:58 Bed 19 Private MD: ED Physician Gavin Cruz HPI: 09/15 12:59 This 74 yrs old Female presents to ER via Ambulatory with complaints of Leg sherman Swelling, Wound Check. 12:59 Patient presents to ED for recheck of: cellulitis. The affected area is on the left sherman parks. Previous treatment: Previous recheck: the patient's last recheck was 3 day(s) ago. Progress: The patient reports decreased pain, redness, swelling. The patient has experienced similar episodes in the past, several times. Historical: - Allergies: 12:12 Morphine; iw - PMHx: 12:12 Diabetes - IDDM; Hyperlipidemia; Hypertension; Myocardial infarction; iw - PSHx: 12:12 Cholecystectomy; stents; iw - Immunization history:: Adult Immunizations not up to date. - Infectious Disease History:: Denies. - Social history:: Smoking status: Patient denies any tobacco usage or history of. ROS: 13:00 Constitutional: Negative for fever, chills, and weight loss, Eyes: Negative for injury, sherman pain, redness, and discharge, ENT: Negative for injury, pain, and discharge, Neck: Negative for injury, pain, and swelling, Cardiovascular: Negative for chest pain, palpitations, and edema, Respiratory: Negative for shortness of breath, cough, wheezing, and pleuritic chest pain, Abdomen/GI: Negative for abdominal pain, nausea, vomiting, diarrhea, and constipation, Back: Negative for injury and pain, : Negative for injury, bleeding, discharge, and swelling, Neuro: Negative for headache, weakness, numbness, tingling, and seizure, Psych: Negative for depression, anxiety, suicide ideation, homicidal ideation, and hallucinations, Allergy/Immunology: Negative for hives, rash, and allergies, Endocrine: Negative for neck swelling, polydipsia, polyuria, polyphagia, and marked weight changes, Hematologic/Lymphatic: Negative for swollen nodes, abnormal bleeding, and unusual bruising, 13:00 MS/extremity: Positive for injury or acute deformity, erythema, pain, tenderness, of the left parks, Exam: 13:00 Constitutional: This is a well developed, well nourished patient who is awake, alert, sherman and in no acute distress. Head/Face: Normocephalic, atraumatic. Eyes: Pupils equal round and reactive to light, extra-ocular motions intact. Lids and lashes normal. Conjunctiva and sclera are non-icteric and not injected. Cornea within normal limits. Periorbital areas with no swelling, redness, or edema. ENT: Nares patent. No nasal discharge, no septal abnormalities noted. Tympanic membranes are normal and external auditory canals are clear. Oropharynx with no redness, swelling, or masses, exudates, or evidence of obstruction, uvula midline. Mucous membranes moist. Neck: Trachea midline, no thyromegaly or masses palpated, and no cervical lymphadenopathy. Supple, full range of motion without nuchal rigidity, or vertebral point tenderness. No Meningismus. Chest/axilla: Normal chest wall appearance and motion. Nontender with no deformity. No lesions are appreciated. Cardiovascular: Regular rate and rhythm with a normal S1 and S2. No gallops, murmurs, or rubs. Normal PMI, no JVD. No pulse deficits. Respiratory: Lungs have equal breath sounds bilaterally, clear to auscultation and percussion. No rales, rhonchi or wheezes noted. No increased work of breathing, no retractions or nasal flaring. Abdomen/GI: Soft, non-tender, with normal bowel sounds. No distension or tympany. No guarding or rebound. No evidence of tenderness throughout. Back: No spinal tenderness. No costovertebral tenderness. Full range of motion. Skin: Warm, dry with normal turgor. Normal color with no rashes, no lesions, and no evidence of cellulitis. Neuro: Awake and alert, GCS 15, oriented to person, place, time, and situation. Cranial nerves II-XII grossly intact. Motor strength 5/5 in all extremities. Sensory grossly intact. Cerebellar exam normal. Normal gait. Psych: Awake, alert, with orientation to person, place and time. Behavior, mood, and affect are within normal limits. 13:00 Musculoskeletal/extremity: ROM: full active range of motion, full passive range of motion, Circulation is intact in all extremities. Sensation intact. Compartment Syndrome exam of affected extremity: is normal. Weight bearing: able to fully bear weight, DVT Exam: negative Homans' sign noted on exam, no appreciated bluish discoloration, pain, swelling, tenderness, erythema, increased warmth, Vital Signs: 12:10 BP 184 / 66; Pulse 63; Resp 16; Temp 97.9; Pulse Ox 100% on R/A; Weight 83.91 kg; iw Height 5 ft. 4 in. ; 13:00 BP 171 / 65; Pulse 61; Resp 16; Temp 98.1; Pulse Ox 100% ; me1 12:10 Body Mass Index 31.75 (83.91 kg, 162.56 cm) iw MDM: 12:02 Medical Screening Exam initiated sherman 13:05 Differential diagnosis: cellulitis, contusion, abrasion, tendonitis. Data reviewed: [facility] vital signs, nurses notes. Consideration of Admission/Observation Escalation of care including admission/observation considered. I considered the following discharge prescriptions or medication management in the emergency department Medications were administered in the Emergency Department. See MAR. Test considered but Not performed: Labs: NO LABS. X-ray: NO X RAY. 09/15 12:59 Order name: Wound Care; Complete Time: 13:01 [facility] Administered Medications: 13:01 Drug: Silver SulfADIAZINE Topical Cream 1 % 1 application Topical once {Note: left me1 parks.} Route: Topical; Site: wound; 13:28 Follow up: Response: No adverse reaction me1 13:01 Drug: Trimethoprim-Sulfamethoxazole PO (160 mg-800 mg (DS) 1 tablet PO once Route: PO; me1 13:28 Follow up: Response: No adverse reaction me1 Disposition Summary: 09/15/24 13:17 Discharge Ordered Notes: Location: Home [facility] Problem: new sherman Symptoms: are unchanged sherman Condition: Stable sherman Diagnosis - Cellulitis of other parts of limb - LEFT ANTERIOR PARKS shemran Followup: sherman - With: Private Physician - When: 2 - 3 days - Reason: Recheck today's complaints, Continuance of care, Re-evaluation by your physician Followup: sherman - With: Valdemar Mcginnis MD - When: 2 - 3 days - Reason: Recheck today's complaints, Continuance of care, Re-evaluation by your physician Discharge Instructions: - Discharge Summary Sheet sherman - Cellulitis, Adult sherman - Skin Tear sherman - Cellulitis, Adult, [id number] sherman Forms: - Medication Reconciliation Form sherman - Antibiotic Education sherman - Prescription Opioid Use sherman - Patient Portal Instructions [facility] - Leadership Thank You Letter [facility] Prescriptions: - Silvadene 1 % Topical Cream - Apply to affected area 1 application TOPICAL route every 12 hours; 20 gram; [facility] Refills: 0, Product Selection Permitted - Bactrim DS 800-160 mg Oral Tablet - take 1 tablet ORAL route every 12 hours for 10 days; 20 tablet; Refills: 0, [facility] Product Selection Permitted Signatures: Gavin Cruz MD MD cha Williams, Irene RN RN iw Katharine Rico RN RN me1
--- NOTE | 2024-09-15 13:18 | ER ---
Nurse's Notes [facility] Name: Nathalia Brady Age: 74 yrs Sex: Female : 1950 Arrival Date: 09/15/2024 Time: 11:58 Bed 19 Private MD: Diagnosis: Cellulitis of other parts of limb-LEFT ANTERIOR PARKS Presentation: 09/15 12:10 Chief complaint: Patient states: has a sore on her left parks since Thursday, is now red iw and swollen, she put cayenne pepper and castor oil on it , a month ago she bumped it on a grocery cart and it left a bump and she squeezed and it healed up , there was a scab on it and she picked it off on Thursday. Coronavirus screen: At this time, the client does not indicate any symptoms associated with coronavirus-19. Ebola Screen: No symptoms or risks identified at this time. Initial Sepsis Screen: Does the patient meet any 2 criteria? No. Patient's initial sepsis screen is negative. Does the patient have a suspected source of infection? No. Patient's initial sepsis screen is negative. Risk Assessment: Do you want to hurt yourself or someone else? Patient reports no desire to harm self or others. Onset of symptoms was September 11, 2024. 12:10 Method Of Arrival: Ambulatory iw 12:10 Acuity: CALI 3 iw Historical: - Allergies: 12:12 Morphine; iw - PMHx: 12:12 Diabetes - IDDM; Hyperlipidemia; Hypertension; Myocardial infarction; iw - PSHx: 12:12 Cholecystectomy; stents; iw - Immunization history:: Adult Immunizations not up to date. - Infectious Disease History:: Denies. - Social history:: Smoking status: Patient denies any tobacco usage or history of. Screenin:26 [facility] ED Fall Risk Assessment (Adult) History of falling in the last 3 months, me1 including since admission No falls in past 3 months (0 pts) Confusion or Disorientation No (0 pts) Intoxicated or Sedated No (0 pts) Impaired Gait No (0 pts) Mobility Assist Device Used No (0 pt) Altered Elimination No (0 pt) Score/Fall Risk Level 0 - 2 = Low Risk Maintained a safe environment, Provided non-skid footwear, Hourly rounding (assess needs \T\ fall precautionary measures) done. Abuse screen: Denies threats or abuse. Nutritional screening: No deficits noted. Tuberculosis screening: No symptoms or risk factors identified. Assessment: 12:26 General: Appears comfortable, well groomed, well developed, well nourished, Behavior is me1 calm, cooperative, appropriate for age, Reports has a sore on her left parks since Thursday, is now red and swollen, she put cayenne pepper and castor oil on it , a month ago she bumped it on a grocery cart and it left a bump and she squeezed and it healed up , there was a scab on it and she picked it off on Thursday. Pain: Complains of pain in left parks Pain does not radiate. Pain currently is 4 out of 10 on a pain scale. Quality of pain is described as tender, Pain began gradually, Is continuous. Neuro: Level of Consciousness is awake, alert, obeys commands, Oriented to person, place, time, situation, Appropriate for age. Cardiovascular: Patient's skin is warm and dry. Respiratory: Airway is patent Respiratory effort is even, unlabored, Respiratory pattern is regular, symmetrical. GI: No signs and/or symptoms were reported involving the gastrointestinal system. : No signs and/or symptoms were reported regarding the genitourinary system. EENT: No signs and/or symptoms were reported regarding the EENT system. Derm: Wound noted left parks. Musculoskeletal: No signs and/or symptoms reported regarding the musculoskeletal system. Injury Description: has a sore on her left parks since Thursday, is now red and swollen, she put cayenne pepper and castor oil on it , a month ago she bumped it on a grocery cart and it left a bump and she squeezed and it healed up , there was a scab on it and she picked it off on Thursday. Vital Signs: 12:10 BP 184 / 66; Pulse 63; Resp 16; Temp 97.9; Pulse Ox 100% on R/A; Weight 83.91 kg; iw Height 5 ft. 4 in. ; 13:00 BP 171 / 65; Pulse 61; Resp 16; Temp 98.1; Pulse Ox 100% ; me1 12:10 Body Mass Index 31.75 (83.91 kg, 162.56 cm) iw ED Course: 12:00 Patient arrived in ED. im 12:02 Gavin Cruz MD is Attending Physician. [facility] 12:12 Triage completed. iw 12:13 Arm band placed on. iw 12:14 Katharine Rico, RN is Primary Nurse. me1 12:26 Patient has correct armband on for positive identification. Bed in low position. Call me1 light in reach. Side rails up X 1. Provided Education on: POC. Verbalized understanding.. Client placed on continuous cardiac and pulse oximetry monitoring. NIBP monitoring applied. Pulse ox on. NIBP on. 12:26 No provider procedures requiring assistance completed. me1 13:02 Patient did not have IV access during this emergency room visit. Wound care: located on me1 left parks was cleaned with Hibiclens, dressed with silvadene, nonstick dressing and coban, Patient tolerated well. 13:15 Valdemar Mcginnis MD is Referral Physician. [facility] Administered Medications: 13:01 Drug: Silver SulfADIAZINE Topical Cream 1 % 1 application Topical once {Note: left me1 parks.} Route: Topical; Site: wound; 13:28 Follow up: Response: No adverse reaction me1 13:01 Drug: Trimethoprim-Sulfamethoxazole PO (160 mg-800 mg (DS) 1 tablet PO once Route: PO; me1 13:28 Follow up: Response: No adverse reaction me1 Medication: 12:26 VIS not applicable for this client. me1 Outcome: 13:17 Discharge ordered by . [facility] 13:37 Discharged to home ambulatory, with family, me1 13:37 Condition: stable 13:37 Discharge instructions given to patient, Instructed on discharge instructions, follow up and referral plans. medication usage, wound care, Demonstrated understanding of instructions, follow-up care, medications, wound care, Prescriptions given X 2, 13:38 Patient left the ED. me1 Signatures: Gavin Cruz MD MD cha Williams, Irene, RN RN Yani Farmer Katharine Rico, RN RN me1 Corrections: (The following items were deleted from the chart) 12:13 12:10 BP 184 / 66; Pulse 63bpm; Resp 16bpm; Pulse Ox 100% RA; Temp 97.9F; iw iw 12:26 12:10 Chief complaint: Patient states: has a sore on her left parks since Thursday, is now me1 red and swollen, she put cayenne pepper and castor oil on it , a month ago she bumped it on a grocery cart and it left a bump and she squeezed and it healed up , there was a scab on it and she picked it off on Thursday iw
[2024-09-15 13:52] VITALS: BP 171/65; TEMP 98.1; O2SAT 100
== END 2024-09-15 13:38 | disposition home or self-care (01) ==
LOC: ER 11:58
DX: L03.116 Cellulitis of left lower limb (principal); E11.9 Type 2 diabetes mellitus without complications; I10 Essential (primary) hypertension; E78.5 Hyperlipidemia, unspecified; I25.2 Old myocardial infarction; Z88.5 Allergy status to narcotic agent
CPT/HCPCS: 99284

== ENCOUNTER 2024-09-17 19:44 | Observation (INO) | payer OTHER ==
[2024-09-17] MEDS ORDERED: FAMOTIDINE 20 MG/2 ML VIAL IV ONE (20:11)
[2024-09-17] MEDS ORDERED: METOCLOPRAMIDE 10 MG/2mL INJ ONE (20:11)
[2024-09-17] MEDS ORDERED: NA CHLORIDE 0.9% 1,000 ML ONE (20:12)
[2024-09-17 20:22] LABS: Absolute Basophils 0.1 K/uL (0-0.5); Absolute Eosinophils 0.1 K/uL (0-0.5); Absolute Monocytes 0.5 K/uL (0.1-1.3); Absolute Neutrophil 9.1 K/uL (1.8-8.0); Basophils % 0.6 % (0-1.3); Eosinophils % 0.5 % (0-4.4); Hematocrit 31.7 % (36.0-45.0); Lymphocytes % 9.5 % (15.3-44.8); MCH 31.9 pg (27.0-35.0); MCHC 34.6 g/dL (32.0-36.0); MCV 92.1 fL (80-100); MPV 8.9 fL (7.6-11.3); Monocytes % 4.7 % (3.3-12.3); Neutrophils % 84.7 % (41.7-73.7); Platelets 230 thou/uL (152-406); RBC Red Blood Cell Count 3.44 M/uL (3.86-4.86); Red Cell Distribution Width 11.8 % (12.1-15.2)
[2024-09-17 20:26] LABS: Protime INR 0.98
[2024-09-17 20:42] LABS: Albumin 3.5 g/dL (3.4-5.0); Albumin/Globulin Ratio 0.9 (1.1-1.8); Anion Gap 13.4 mEq/L (5.0-15.0); Bilirubin Total 0.3 mg/dL (0.2-1.0); Globulin 3.7 g/dL (2.3-3.5); Potassium 4.4 mEq/L (3.5-5.1); Protein, Total 7.2 g/dL (6.4-8.2)
--- NOTE | 2024-09-17 21:26 | RAD REPORT ---
EXAMINATION: CT ABDOMEN AND PELVIS WITH CONTRAST CLINICAL INDICATION: ABD PAIN TECHNIQUE: CT abdomen and pelvis was performed, after the administration of IV contrast, as per [facility] protocol. Axial, sagittal and coronal reconstructions were obtained. One or more of the following dose reduction techniques were used: Automated exposure control, adjustment of the mA and k V according to patient size, and iterative reconstruction. Unless otherwise specified, incidental findings do not require dedicated imaging follow-up. COMPARISON: No prior exam. FINDINGS: LOWER CHEST: The visualized lung bases are clear. Small hiatal hernia. LIVER: Normal in size and contour. No focal lesion. Absent. SPLEEN: Normal size. No focal lesion. PANCREAS: No mass, ductal dilation, or cam-pancreatic fluid. ADRENALS: Normal; no mass. KIDNEYS: Normal size and contour. No hydronephrosis. GASTROINTESTINAL TRACT: No evidence of free air, significant intra-abdominal free fluid, bowel obstru ction or abscess. APPENDIX: Normal appendix. LYMPH NODES: No lymphadenopathy. MUSCULOSKELETAL: Mild lumbosacral disc bulge. ADDITIONAL FINDINGS: None. IMPRESSION: No acute or concerning abnormalities seen in the abdomen or pelvis.
[2024-09-17 21:52] LABS: Specific Gravity 1.018 (1.005-1.030); Sqamous Epithelial <5 /HPF (None Seen); Urine Bacteria None Seen /HPF (<20); Urine Bilirubin NEGATIVE (Negative); Urine Blood Negative (Negative); Urine Clarity Clear (Clear); Urine Color Colorless (Yellow); Urine Culture Reflex Order NOT NEEDED; Urine Glucose 3+ (Negative); Urine Ketones 1+ (Negative); Urine Microscopic Reflex YN ORDER UMIC; Urine Nitrite NEGATIVE (Negative); Urine Protein NEGATIVE (Negative); Urine RBC <5 /HPF (None Seen); Urine Urobilinogen Normal (Normal); Urine WBC <5 /HPF (<5); Urine pH 6.5 (5.0-7.0)
[2024-09-17] MEDS ORDERED: MECLIZINE HCL 12.5 MG TAB ONE (23:51)
[2024-09-17] MEDS ORDERED: ASPIRIN 81 MG CHEWABLE TABLET ONE (23:52)
--- NOTE | 2024-09-18 00:15 | ER ---
Nurse's Notes [facility] Name: Nathalia Brady Age: 74 yrs Sex: Female : 1950 Arrival Date: 09/17/2024 Time: 19:44 Bed 7 Private MD: Diagnosis: NSTEMI, nausea vomiting, diffuse abdominal pain, acute vertigo Presentation: 09/17 19:51 Chief complaint: Patient's son or daughter states: Nausea, vomiting, and abd pain. ay Coronavirus screen: Client denies travel out of the [place] in the last 14 days. Ebola Screen: No symptoms or risks identified at this time. Initial Sepsis Screen: Does the patient meet any 2 criteria? No. Patient's initial sepsis screen is negative. Does the patient have a suspected source of infection? No. Patient's initial sepsis screen is negative. Risk Assessment: Do you want to hurt yourself or someone else? Patient reports no desire to harm self or others. Note Pt BIBA with a c/o N/V, and abd pain. Denies SOB and CP. Alert and oriented x4. no distress noted. Onset of symptoms was September 17, 2024 at 17:30. 19:51 Method Of Arrival: EMS: [facility] ay 19:51 Acuity: CALI 3 ay Triage Assessment: 19:57 General: Appears. General: Appears in no apparent distress. uncomfortable, Behavior is ay calm, cooperative. Pain: Complains of pain in abdomen. EENT: No signs and/or symptoms were reported regarding the EENT system. Neuro: Level of Consciousness is awake, alert, obeys commands, Oriented to person, place, time, situation, Information Resources Director are equal bilaterally Speech is normal. Cardiovascular: Capillary refill < 3 seconds. Respiratory: Airway is patent Respiratory effort is even, unlabored, Respiratory pattern is regular, symmetrical. GI: Abdomen is round Bowel sounds present X 4 quads. Abdomen is tender to palpation X 4 quads. : No signs and/or symptoms were reported regarding the genitourinary system. Derm: Bruising that is on lower extremities. Musculoskeletal: No signs and/or symptoms reported regarding the musculoskeletal system. Historical: - Allergies: 19:57 Morphine; ay - Home Meds: 19:57 atorvastatin 80 mg Oral tab 1 tab once daily [Active]; Metformin Oral [Active]; ay - PMHx: 19:57 Diabetes - IDDM; Hyperlipidemia; Hypertension; Myocardial infarction; ay - PSHx: 19:57 Cholecystectomy; stents; ay - Immunization history:: Adult Immunizations not up to date. - Infectious Disease History:: Denies. - Social history:: Smoking status: Patient denies any tobacco usage or history of. - Family history:: not pertinent. Screenin:[address] [facility] ED Fall Risk Assessment (Adult) History of falling in the last 3 months, ay including since admission No falls in past 3 months (0 pts) Confusion or Disorientation No (0 pts) Intoxicated or Sedated No (0 pts) Impaired Gait No (0 pts) Mobility Assist Device Used No (0 pt) Altered Elimination No (0 pt) Score/Fall Risk Level 0 - 2 = Low Risk Oriented to surroundings, Maintained a safe environment, Educated pt \T\ family on fall prevention, incl call for assistance when getting out of bed. Abuse screen: Denies threats or abuse. Denies injuries from another. Nutritional screening: No deficits noted. Tuberculosis screening: No symptoms or risk factors identified. Assessment: 20:04 General: See Triage Assessment. ay 22:44 Reassessment: Patient appears in no apparent distress at this time. Patient is alert, ay oriented x 3, equal unlabored respirations, skin warm/dry/pink. Patient denies pain at this time. 23:58 Reassessment: Patient appears in no apparent distress at this time. Patient is alert, ay oriented x 3, equal unlabored respirations, skin warm/dry/pink. Patient denies pain at this time. Vital Signs: 19:51 BP 189 / 70; Pulse 63; Resp 20 S; Temp 97.6; Pulse Ox 100% on R/A; ay 20:26 BP 176 / 52; Pulse 58; Resp 18; Pulse Ox 100% on R/A; ay 22:49 BP 132 / 58; Pulse 60; Resp 18; Pulse Ox 98% on R/A; ay 23:00 BP 148 / 58; Pulse 60; Resp 20 S; Pulse Ox 99% on R/A; ay 09/18 00:24 BP 179 / 61; Pulse 62; Pulse Ox 100% ; kmf 01:02 BP 165 / 57; Pulse 61; Resp 17; Pulse Ox 100% ; kmf [place] Coma Score: 09/17 20:04 Eye Response: spontaneous(4). Motor Response: obeys commands(6). Verbal Response: ay oriented(5). Total: 15. ED Course: 19:48 Patient arrived in ED. gm2 19:50 Bibi Alanis, RN is Primary Nurse. ay 19:57 Caio Banerjee MD is Attending Physician. sp4 19:57 Triage completed. ay 19:57 Arm band placed on left wrist. ay 20:04 Patient has correct armband on for positive identification. Bed in low position. Call ay light in reach. Side rails up X2. Adult w/ patient. Warm blanket given. 20:04 Maintain EMS IV. Dressing intact. Good blood return noted. Site clean \T\ dry. Gauge \T\ ay site: 20g L hand and 20g R hand. Flushed with 10 mL NS. 20:16 PT-INR Sent. vk 20:16 BNP Sent. vk 20:16 Troponin High Sensitivity Sent. vk 20:16 Influenza Screen (a \T\ B) Sent. vk 20:16 CBC with Diff Sent. vk 20:16 CMP Sent. vk 20:16 Lipase Sent. vk 20:17 Initial lab(s) drawn, by me, sent to lab. Flu and/or RSV swab sent to lab. kmf 21:17 CT Abd/Pelvis - IV Contrast Only In Process Unspecified. EDMS 23:11 EKG done, by ED staff, reviewed by Caio Banerjee MD. ay 09/18 00:14 Prince Callahan MD is Hospitalizing Provider. sp4 01:41 No provider procedures requiring assistance completed. Patient admitted, IV remains in ay place. 01:43 Provided Education on: plan of care. ay Administered Medications: 09/17 20:25 Drug: Famotidine IVP 20 mg IVP once; dilute with 10 mL 0.9% NaCl; give over 2 minutes ay Route: IVP; Site: right hand; 22:56 Follow up: Response: No adverse reaction ay 20:25 Drug: NS 0.9% IV 1000 ml IV at 1 bolus Per protocol; to be given as a bolus over 60 ay minutes Route: IV; Rate: 1 bolus; Site: right hand; 22:56 Follow up: Response: No adverse reaction; IV Status: Completed infusion; IV Intake: ay 1000ml 20:25 Drug: metoCLOPramide IVP 10 mg IVP once; over 1 to 2 minutes Route: IVP; Site: right ay hand; 22:57 Follow up: Response: No adverse reaction ay 23:57 Drug: Meclizine PO 50 mg PO once Route: PO; ay 09/18 00:30 Follow up: Response: No adverse reaction ay 00:30 Follow up: Response: No adverse reaction ay 09/17 23:58 Drug: Aspirin PO Chewable Tablet 324 mg PO once; 81 mg tablets x 4 Route: PO; ay 09/18 01:24 Follow up: Response: No adverse reaction ay 01:32 Drug: Enoxaparin Sub-Q 70 mg Sub-Q once Route: Sub-Q; Site: left lower abdomen; ay 01:33 Follow up: Response: No adverse reaction ay Medication: 09/17 20:04 VIS not applicable for this client. ay Intake: 22:56 IV: 1000ml; Total: 1000ml. ay Outcome: 09/18 00:14 Decision to Hospitalize by Provider. sp4 01:41 Admitted to Med/surg accompanied by nurse, family with patient, via stretcher, room ay 230, 01:41 Condition: stable 01:41 Instructed on the need for admit, 01:44 Patient left the ED. ay Signatures: Dispatcher [employer] EDMS Caio Banerjee MD MD sp4 Malika Ramsey 2 Gale Rodriges Zaira Naranjo Awudu, RN RN ay Corrections: (The following items were deleted from the chart) 09/17 22:50 22:30 BP 138 / 66; Pulse 65bpm; Resp 16bpm; Pulse Ox 99% RA; ay ay
--- NOTE | 2024-09-18 00:15 | EDPHYS ---
Physician Documentation [facility] Name: Nathalia Brady Age: 74 yrs Sex: Female : 1950 Arrival Date: 09/17/2024 Time: 19:44 Bed 7 Private MD: ED Physician Caio Banerjee HPI: 09/17 19:57 This 74 yrs old Female presents to ER via EMS with complaints of Abdominal sp4 Pain. 09/18 00:10 74-year-old female presents with acute onset abdominal pain nausea vomiting and sp4 vertigo. History of Mnire's disease. History of hyperlipidemia, obesity, hypertension, diabetes mellitus type 2, coronary artery disease. Patient's medications include atorvastatin, clopidogrel, metformin, metoprolol, pantoprazole, albuterol, benzonatate. Although patient is at this time states she is not on any blood thinners. Historical: - Allergies: 09/17 19:57 Morphine; ay - Home Meds: 19:57 atorvastatin 80 mg Oral tab 1 tab once daily [Active]; Metformin Oral [Active]; ay - PMHx: 19:57 Diabetes - IDDM; Hyperlipidemia; Hypertension; Myocardial infarction; ay - PSHx: 19:57 Cholecystectomy; stents; ay - Immunization history:: Adult Immunizations not up to date. - Infectious Disease History:: Denies. - Social history:: Smoking status: Patient denies any tobacco usage or history of. - Family history:: not pertinent. ROS: 09/18 00:10 Constitutional: Negative for fever, chills, and weight loss, positive diffuse abdominal sp4 pain, positive nausea, positive vomiting, positive vertigo. All other systems are negative, Exam: 00:10 Constitutional: This is a well developed, well nourished patient who is awake, alert, sp4 ill-appearing female generalized pallor. Nontoxic-appearing. Head/Face: Normocephalic, atraumatic. Eyes: Pupils equal round and reactive to light, extra-ocular motions intact. Lids and lashes normal. Conjunctiva and sclera are not injected. Cornea within normal limits. Periorbital areas with no swelling, redness, or edema. ENT: Nares patent. No nasal discharge, no septal abnormalities noted. Tympanic membranes are normal and external auditory canals are clear. Oropharynx with no redness, swelling, or masses, exudates, or evidence of obstruction, uvula midline. Mucous membranes moist. Neck: Trachea midline, no thyromegaly or masses palpated, and no cervical lymphadenopathy. Supple, full range of motion without nuchal rigidity, or vertebral point tenderness. Chest/axilla: Normal chest wall appearance and motion. Nontender with no deformity. No lesions are appreciated. Cardiovascular: Regular rate and rhythm with a normal S1 and S2. No gallops, murmurs, or rubs. Normal PMI, no JVD. No pulse deficits. Respiratory: Lungs have equal breath sounds bilaterally, clear to auscultation and percussion. No rales, rhonchi or wheezes noted. No increased work of breathing, no retractions or nasal flaring. Abdomen/GI: Soft, with normal bowel sounds. No distension or tympany. No guarding or rebound. No evidence of tenderness throughout. Back: No spinal tenderness. No costovertebral tenderness. Skin: Warm, dry with normal turgor. Normal color with no rashes, no lesions, and no evidence of cellulitis. MS/ Extremity: Pulses equal, no cyanosis. Neurovascular intact. Full, normal range of motion. Neuro: Awake and alert, GCS 15, oriented to person, place, time, and situation. Cranial nerves II-XII grossly intact. Motor strength 5/5 in all extremities. Sensory grossly intact. Psych: Awake, alert, with orientation to person, place and time. Behavior, mood, and affect are within normal limits 00:10 ECG was reviewed by the Attending Physician. EKG 2307 normal sinus rhythm rate 60 Vital Signs: 09/17 19:51 BP 189 / 70; Pulse 63; Resp 20 S; Temp 97.6; Pulse Ox 100% on R/A; ay 20:26 BP 176 / 52; Pulse 58; Resp 18; Pulse Ox 100% on R/A; ay 22:49 BP 132 / 58; Pulse 60; Resp 18; Pulse Ox 98% on R/A; ay 23:00 BP 148 / 58; Pulse 60; Resp 20 S; Pulse Ox 99% on R/A; ay 09/18 00:24 BP 179 / 61; Pulse 62; Pulse Ox 100% ; kmf 01:02 BP 165 / 57; Pulse 61; Resp 17; Pulse Ox 100% ; kmf [place] Coma Score: 09/17 20:04 Eye Response: spontaneous(4). Motor Response: obeys commands(6). Verbal Response: ay oriented(5). Total: 15. MDM: 20:00 Medical Screening Exam initiated sp4 09/18 00:05 Differential diagnosis: appendicitis, bowel obstruction, diverticulitis, gastritis, sp4 gastroesophageal reflux disease, GI Bleed. Data reviewed: vital signs, nurses notes, EMS record. ED course: EXAMINATION: CTABDOMEN AND PELVIS WITH CONTRAST CLINICAL INDICATION: ABD PAIN TECHNIQUE: CT abdomen and pelvis was performed, after the administration of IV contrast, as per department protocol. Axial, sagittal and coronal reconstructions were obtained. One or more of the following dose reduction techniques were used: Automated exposure control, adjustment of the mA and kV according to patient size, and iterative reconstruction. Unless otherwise specified, incidental findings do not require dedicated imaging follow-up. COMPARISON: No prior exam. FINDINGS: LOWER CHEST: The visualized lung bases are clear. Small hiatal hernia. LIVER: Normal in size and contour. No focal lesion. Absent. SPLEEN: Normal size. No focal lesion. PANCREAS: No mass, ductal dilation, or cam-pancreatic fluid. ADRENALS: Normal; no mass. KIDNEYS: Normal size and contour. No hydronephrosis. GASTROINTESTINAL TRACT: No evidence of free air, significant intra-abdominal free fluid, bowel obstruction or abscess. APPENDIX: Normal appendix. LYMPH NODES: No lymphadenopathy. MUSCULOSKELETAL: Mild lumbosacral disc bulge. ADDITIONAL FINDINGS: None. IMPRESSION: No acute or concerning abnormalities seen in the abdomen or pelvis. . 00:15 Consideration of Admission/Observation Patient was admitted/placed on observation. sp4 Escalation of care including admission/observation considered. Management of patient was discussed with the following: Hospitalist: Sindy MARCUS . 09/17 19:58 Order name: CBC with Diff; Complete Time: 23:40 sp4 09/17 19:58 Order name: CMP; Complete Time: 23:40 sp4 09/17 19:58 Order name: Lipase; Complete Time: 23:40 sp4 09/17 19:58 Order name: Urinalysis w/ reflexes; Complete Time: 23:40 sp4 09/17 19:58 Order name: Influenza Screen (a \T\ B); Complete Time: 23:40 sp4 09/17 19:58 Order name: Troponin High Sensitivity; Complete Time: 23:40 sp4 09/17 19:58 Order name: BNP; Complete Time: 23:40 sp4 09/17 19:58 Order name: PT-INR; Complete Time: 23:40 sp4 09/18 00:06 Order name: Troponin High Sensitivity sp4 09/18 00:23 Order name: Magnesium EDDC 09/18 00:23 Order name: NT PRO-BNP EDDC 09/18 00:23 Order name: Phosphorus EDMS 09/18 00:23 Order name: Lipid Profile EDMS 09/18 00:23 Order name: Lipid Profile EDMS 09/18 00:27 Order name: Hemoglobin A1c EDDC 09/17 19:58 Order name: CT Abd/Pelvis - IV Contrast Only; Complete Time: 23:40 sp4 09/18 00:23 Order name: Echo with Doppler EDDC 09/17 19:58 Order name: EKG; Complete Time: 19:59 sp4 09/18 01:04 Order name: [facility] EDDC 09/17 19:58 Order name: IV Saline Lock [facility] 09/17 19:58 Order name: Labs collected and sent [facility] 09/17 19:58 Order name: EKG - Nurse/Tech; Complete Time: 23:10 sp4 EC/04 23:07 Rate is 60 beats/min. Rhythm is regular, Normal Sinus Rhythm. QRS [place] is Normal. [place] sp4 interval is normal. QRS interval is normal. QT interval is normal. No Q waves. T waves are Normal. No ST changes noted. Clinical impression: No evidence of ischemia. Interpreted by me. Reviewed by me. Administered Medications: 20:25 Drug: Famotidine IVP 20 mg IVP once; dilute with 10 mL 0.9% NaCl; give over 2 minutes ay Route: IVP; Site: right hand; 22:56 Follow up: Response: No adverse reaction ay 20:25 Drug: NS 0.9% IV 1000 ml IV at 1 bolus Per protocol; to be given as a bolus over 60 ay minutes Route: IV; Rate: 1 bolus; Site: right hand; 22:56 Follow up: Response: No adverse reaction; IV Status: Completed infusion; IV Intake: ay 1000ml 20:25 Drug: metoCLOPramide IVP 10 mg IVP once; over 1 to 2 minutes Route: IVP; Site: right ay hand; 22:57 Follow up: Response: No adverse reaction ay 23:57 Drug: Meclizine PO 50 mg PO once Route: PO; ay 09/18 00:30 Follow up: Response: No adverse reaction ay 00:30 Follow up: Response: No adverse reaction ay 09/17 23:58 Drug: Aspirin PO Chewable Tablet 324 mg PO once; 81 mg tablets x 4 Route: PO; ay 09/18 01:24 Follow up: Response: No adverse reaction ay 01:32 Drug: Enoxaparin Sub-Q 70 mg Sub-Q once Route: Sub-Q; Site: left lower abdomen; ay 01:33 Follow up: Response: No adverse reaction ay Disposition Summary: 09/18/24 00:14 Hospitalization Ordered Notes: Hospitalization Status: Inpatient Admission sp4 Provider: Prince tamy Callahan Location: Telemetry/[facility] (Inpatient) sp4 Condition: Fair sp4 Problem: new sp4 Symptoms: have improved sp4 Bed/Room Type: Standard sp4 Room Assignment: 230(09/18/24 00:31) Diagnosis - NSTEMI, nausea vomiting, diffuse abdominal pain, acute vertigo sp4 Forms: - Medication Reconciliation Form sp4 - SBAR form sp4 - Leadership Thank You Letter sp4 Critical care time excluding procedures: 00:13 Critical care time: Bedside Care: 36 minutes, Consultation: 12 minutes, Family sp4 Intervention: 12 minutes. Total time: 60 minutes Signatures: Dispatcher [employer] Caoi Cooper MD MD sp4 Ebony Chiu Awudu RN RN ay Corrections: (The following items were deleted from the chart) 00:31 00:14 sp4 hw
[2024-09-18] MEDS ORDERED: NITROGLYCERIN 0.4 MG/TAB SL PRN (00:17)
[2024-09-18] MEDS ORDERED: ONDANSETRON 4 MG/2 ML VIAL IV PRN (00:17)
--- NOTE | 2024-09-18 00:57 | P.HP ---
Certification for Inpatient Patient admitted to: Observation With expected LOS: <2 Midnights Practitioner: I am a practitioner with admitting privileges, knowledge of patient current condition, hospital course, and medical plan of care. Services: Services provided to patient in accordance with Admission requirements found in Title 42 Section 412.3 of the Code of Federal Regulations Patient History Date of Service: 09/18/24 Reason for admission: elevated troponin History of Present Illness: Patient is a 74 year old female with a PMH of Meniere's disease, type II diabetes mellitus, HTN and CAD S/P PCI. She is being admitted for elevated troponin, ACS rule out. Patient first developed a sudden onset of periumbilical pain yesterday early evening. She later experienced nausea and vomited once. She describes a non-bloody emesis. Associated symptoms include mild vertigo. Work up in the ER included a CT A/P which was unremarkable. She has elevated troponin at 85. She denies chest pain. Her EKG is normal. During my evaluation, patient appears slightly lethargic. She is hypertensive with SBP of 165 mmHg. Allergies morphine Allergy (Verified 12/11/18 15:18) Anaphylaxis Home Medications: Atorvastatin Calcium [Lipitor] 1 tab PO DAILY 12/16/16 Clopidogrel Bisulfate [Plavix] 1 tab PO DAILY 12/16/16 Metformin HCl [Metformin ER Osmotic] 2 tab PO BID 12/16/16 Metoprolol Tartrate [Lopressor*] 1 tab PO BID 12/16/16 Pantoprazole [Protonix Tab*] 40 mg PO DAILY 12/11/18 Albuterol Neb [Proventil 0.083% Neb Soln] 2.5 mg IH Q6HP PRN #120 ml 10/02/22 Benzonatate [Tessalon Perle*] 100 mg PO TID PRN 7 Days #20 cap 10/02/22 - Past Medical/Surgical History Diabetic: Yes -: DM -: HTN -: high cholesterol -: CAD -: CECI -: heart stent Psychosocial/ Personal History: Patient was at home with family - Family History Father -: Diabetes Mother -: Diabetes - Social History Alcohol use: No CD- Drugs: No Caffeine use: Yes Physical Examination - Physical Exam General: Acute distress HEENT: Atraumatic, Normocephalic Respiratory: Clear to auscultation bilaterally, Normal air movement Cardiovascular: No edema, Normal pulses, Regular rate/rhythm, Normal S1 S2, Systolic murmur Gastrointestinal: Soft and benign, Non-distended, No ascites, Tenderness Neurological: Normal speech - Studies Laboratory Data (last 24 hrs) 09/17/24 09/17/24 09/17/24 20:00 20:00 20:00 WBC 10.70 Hgb 11.0 L Hct 31.7 L Plt Count 230 PT 11.0 INR 0.98 Sodium 132 L Potassium 4.4 BUN 20 H Creatinine 1.17 H Glucose 199 H Total Bilirubin 0.3 AST 19 ALT 16 Alkaline Phosphatase 71 Lipase 30 Microbiology Data (last 24 hrs): 09/17/24 20:00 Nasopharnyx Influenza Type A Antigen Screen - Final 09/17/24 20:00 Nasopharnyx Influenza Type B Antigen Screen - Final Assessment and Plan - Problems (Diagnosis) (1) Elevated troponin Current Visit: Yes Status: Acute (2) Intractable nausea and vomiting Current Visit: Yes Status: Acute (3) Abdominal pain Current Visit: Yes Status: Acute (4) Meniere disease Current Visit: Yes Status: Acute (5) Coronary artery disease Current Visit: No Status: Chronic Qualifiers: Coronary Disease-Associated Artery/Lesion type: [place] artery [place] vs. 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 She has been found to have elevated troponin. First troponin 85. Her EKG is normal. She has no chest pain Elevated troponin-most likely demand ischemia CAD S/P PCI HTN Type II diabetes mellitus Meniere's disease LLE wound PLAN: Admit under observation with telemetry Trend troponin Trend TTE Cardiology consulted Anti-emetics, acid suppression therapy Resume rest of home meds once reconciled Wound care - Advance Directives Does patient have a Living Will: No Does patient have a Durable POA for Healthcare: No
[2024-09-18] MEDS ORDERED: SODIUM CHLORIDE 0.9% 10ML INJ IV PRN (01:02)
[2024-09-18] MEDS ORDERED: HYDRALAZINE HCL 20 MG/ML VIAL IV PRN (01:02)
[2024-09-18] MEDS ORDERED: ENOXAPARIN 80 MG/0.8 ML SQ ONE (01:27)
[2024-09-18 01:53] VITALS: O2SAT 100
[2024-09-18 02:25] VITALS: BMI 32.8
[2024-09-18] MEDS: PANTOPRAZOLE 40 MG INJ IVP SCH (02:47)
[2024-09-18 03:33] LABS: Phosphorus 3.8 mg/dL (2.5-4.9)
[2024-09-18] MEDS: ENOXAPARIN 40 MG/0.4 ML SQ SCH (09:34)
[2024-09-18] MEDS: ASPIRIN EC 81 MG TAB PO SCH (09:35)
--- NOTE | 2024-09-18 15:05 | P.CNS ---
Date of Consult: 09/18/24 Chief Complaint: elevated troponin History of Present Illness: Patient with PMH of menierzara dsease, CAD PCI in the past, presented with worsening vertigo, nausea and mid abdominal pain, denies chest pain, no palpitations, no dizzy spells, no syncope. Allergies morphine Allergy (Verified 12/11/18 15:18) Anaphylaxis Home medications list reviewed: Yes Home Medications: Metformin ER [Glucophage ER*] 500 mg PO BID 09/18/24 Mupirocin Oint [Bactroban 2% Ointment*] 1 howard TOP TID 09/18/24 Smz./Tmp. [Bactrim Ds 800 MG/160 MG*] 1 tab PO Q12HP 09/18/24 - Past Medical/Surgical History Diabetic: Yes -: DM -: HTN -: high cholesterol -: CAD -: CECI -: heart stent Psychosocial/ Personal History: Patient was at home with family - Family History Father Medical History: Diabetes Mother Medical History: Diabetes - Social History Smoking Status: Unknown if ever smoked Alcohol use: No CD- Drugs: No Caffeine use: No Place of Residence: Home Review of Systems 10-point ROS is otherwise unremarkable Physical Examination Temp Pulse Resp BP Pulse Ox 97.6 F 64 16 157/69 H 96 09/18/24 12:00 09/18/24 12:00 09/18/24 12:00 09/18/24 12:00 09/18/24 12:00 General: Alert, In no apparent distress HEENT: Atraumatic, PERRLA, Mucous membr. moist/pink, EOMI, Sclerae nonicteric Neck: Supple, 2+ carotid pulse no bruit, No LAD, Without JVD or thyroid abnormality Respiratory: Clear to auscultation bilaterally, Normal air movement Cardiovascular: Regular rate/rhythm, Normal S1 S2 Gastrointestinal: Normal bowel sounds, No tenderness Musculoskeletal: No tenderness Integumentary: No rashes Neurological: Normal gait, Normal speech, Normal tone, Normal affect Lymphatics: No axilla or inguinal lymphadenopathy Laboratory Data (last 24 hrs) 09/17/24 09/17/24 09/17/24 20:00 20:00 20:00 WBC 10.70 Hgb 11.0 L Hct 31.7 L Plt Count 230 PT 11.0 INR 0.98 Sodium 132 L Potassium 4.4 BUN 20 H Creatinine 1.17 H Glucose 199 H Total Bilirubin 0.3 AST 19 ALT 16 Alkaline Phosphatase 71 Lipase 30 - Problems (1) Elevated troponin Current Visit: Yes Status: Acute Plan: there is mild troponin elevation with no significant delta and no EKG changes. most likely type 2 MN from high BP patient usually see cardiology as outpatient and get annual stress test and echo would recommend outpatient follow up with cardiology for updated stress test, echo and maybe event monitor. continue ASA and lipitor (2) Hypertension Current Visit: No Status: Chronic Plan: recommend better control, reconcille patient home medications. Qualifiers: Hypertension type: essential hypertension
[2024-09-18 15:47] VITALS: BP 178/74; TEMP 98.4
--- NOTE | 2024-09-18 16:25 | P.DS ---
Admission Date: 09/18/24 Discharge Date: 09/18/24 Disposition: ROUTINE DISCHARGE Discharge Condition: GOOD Reason for Admission: elevated troponin Consultations: Dr. Juarez Brief History of Present Illness: Patient is a 74 year old female with a PMH of Meniere's disease, type II diabetes mellitus, HTN and CAD S/P PCI. She is being admitted for elevated troponin, ACS rule out. Patient first developed a sudden onset of periumbilical pain yesterday early evening. She later experienced nausea and vomited once. She describes a non-bloody emesis. Associated symptoms include mild vertigo. Work up in the ER included a CT A/P which was unremarkable. She has elevated troponin at 85. She denies chest pain. Her EKG is normal. During my evaluation, patient appears slightly lethargic. She is hypertensive with SBP of 165 mmHg. Hospital Course: Mrs. Brady is feeling better without complaints this morning. Her dizziness (that was mild) has resolved. Concerning in the emergency department was a an elevated troponin which has trended down and is likely due to her impaired renal function from persistent hypertension and diabetes. Hemoglobin A1c is 10.5 so will need to work for better glucose control. Blood pressure systolics in the 165-170 range would indicate a need for increased management of her hypertension as well. Of note, she does have a shallow ulceration to her left parks with mild cellulitis. She is currently taking Bactrim and using Bactroban and we would recommend continuation until course complete. Bactrim can also temporarily increase creatinine numbers without actual renal damage. Mrs. Brady should follow-up with her PCP in 1 week. Vital Signs/Physical Exam: Temp Pulse Resp BP Pulse Ox 98.4 F 55 16 178/74 H 97 09/18/24 15:42 09/18/24 15:42 09/18/24 15:42 09/18/24 15:42 09/18/24 15:42 Other Physical/Emotional Findings: - Physical Exam. General: Alert, Oriented x3, Cooperative, no distress. HEENT: Atraumatic, Normocephalic. Neck: Supple. Respiratory: Clear to auscultation bilaterally, Normal air movement. Cardiovascular: No edema, Regular rate/rhythm, Normal S1 S2. Capillary refill: <2 Seconds. Gastrointestinal: Soft and benign, without hepatosplenomegaly. Musculoskeletal: No clubbing, No swelling. Integumentary: No rashes, No breakdown, shallow ulceration to left mid parks with mild surrounding erythema. Neurological: Normal gait, Normal speech, Normal strength at 5/5 x4 extr, Cranial nerves 3-12 intact, Normal affect. Lymphatics: No axilla or inguinal lymphadenopathy Laboratory Data at Discharge: WBC 10.70 thou/uL (4.3-10.9) 09/17/24 20:00 Hgb 11.0 g/dL (12.0-15.0) L 09/17/24 20:00 Hct 31.7 % (36.0-45.0) L 09/17/24 20:00 Plt Count 230 thou/uL (152-406) 09/17/24 20:00 PT 11.0 SECONDS (9.4-12.5) 09/17/24 20:00 INR 0.98 09/17/24 20:00 Sodium 132 mEq/L (136-145) L 09/17/24 20:00 Potassium 4.4 mEq/L (3.5-5.1) 09/17/24 20:00 BUN 20 mg/dL (7-18) H 09/17/24 20:00 Creatinine 1.17 mg/dL (0.55-1.02) H 09/17/24 20:00 Glucose 199 mg/dL (74-106) H 09/17/24 20:00 Phosphorus 3.8 mg/dL (2.5-4.9) 09/18/24 03:07 Magnesium 2.0 mg/dL (1.6-2.4) 09/18/24 03:07 Total Bilirubin 0.3 mg/dL (0.2-1.0) 09/17/24 20:00 AST 19 U/L (15-37) 09/17/24 20:00 ALT 16 U/L (13-56) 09/17/24 20:00 Alkaline Phosphatase 71 U/L (45-117) 09/17/24 20:00 Lipase 30 U/L (13-75) 09/17/24 20:00 Home Medications: Atorvastatin Calcium [Lipitor*] 40 mg PO BEDTIME #30 tab 09/18/24 Metformin ER [Glucophage ER*] 500 mg PO BID #240 tab.sa 09/18/24 Metoprolol Succinate 25 mg PO DAILY #60 tab 09/18/24 Mupirocin Oint [Bactroban 2% Ointment*] 1 howard TOP TID 09/18/24 Smz./Tmp. [Bactrim Ds 800 MG/160 MG*] 1 tab PO Q12HP 09/18/24 New Medications: Metformin ER [Glucophage ER*] 500 mg PO BID #240 tab.sa Atorvastatin Calcium [Lipitor*] 40 mg PO BEDTIME #30 tab Metoprolol Succinate 25 mg PO DAILY #60 tab Diet: ADA Activity: Ad yamileth Followup: NONE,NONE [Primary Care Provider] - Heber Juarez MD [ACTIVE - CAN ADMIT] -
[2024-09-18] MEDS ORDERED: ATORVASTATIN 20 MG TAB PO SCH (21:00)
== END 2024-09-18 18:07 | disposition home or self-care (01) ==
LOC: ER 19:44 → 2ND 09-18 01:02
PROVIDERS: ADMIT Internal Medicine; ATTEND Internal Medicine
DX: R79.89 Other specified abnormal findings of blood chemistry (principal); E11.9 Type 2 diabetes mellitus without complications; I10 Essential (primary) hypertension; H81.09 Meniere's disease, unspecified ear; I25.10 Atherosclerotic heart disease of native coronary artery without angina pectoris; R10.9 Unspecified abdominal pain; L03.116 Cellulitis of left lower limb; Z88.5 Allergy status to narcotic agent
CPT/HCPCS: 96361; 85025; 81001; 36415; 83735; 84100; 85610; 82947 ×3; 83036; 84484 ×2; 83690; 80053; 83880 ×2; 87804 ×2; 74177; 96375; 96372; 96374; 99285; Q9967; J8597; J2765; J2470 ×2; J1650; J7030; G0378 ×2